=== PATIENT | female | born 1950 | race African-American/Black ===

== ENCOUNTER 2023-09-30 12:24 | Inpatient (IN) | payer MEDICARE, SELFPAY ==
[2023-09-30] VITALS (29 sets, daily range): BP systolic 90–131; BP diastolic 70–86; PULSE 89–136; RESP 12–27; TEMP 36.3–38.4; O2SAT 87–99
--- NOTE | 2023-09-30 12:45 | RT.EKG_ITS ---
APPROVED REPORT Exam: Resting ECG Reason for Exam: Tachycardia Patient Location: E HR:115 bpm ECG Measurements Heart Rate 115 AXIS [place] 125 P 54 QRSd 65 QRS 37 QT 263 T -88 QTc 365 Conclusion Sinus tachycardia...rate> 99 Low voltage, extremity leads...all extremity leads <0.5mV Anteroseptal infarct, age indeterminate...Q >35mS, T neg, V1-V2 Narrow complex normal sinus rhythm at a rate of 115. Normal axis. Intervals within normal limits wi th the exception of mildly short QTc. Minor ST segment depressions V4 and V5. No prior for comparis on. No acute injury pattern.Low voltage.
--- NOTE | 2023-09-30 12:53 | ED.GENADUL_ITS ---
HPI General Date/Time Provider Initiated Documentation: 09/30/23 12:53 . HPI Narrative: MDM This is a cachectic appearing febrile and tachycardic 73-year-old woman with failure to thrive fall and confusion concerning for multiple etiologies. Given fever and tachycardia I am concerned for sepsis so we will treat with 500 cc of crystalloid check a lactate ordered 2 sets of blood cultures and treat empirically with ceftriaxone and vancomycin. Given confusion and head strike will complete CT head. Given trauma I also want to complete CT thoracic and lumbar spine as patient has had difficulty ambulating as result will also obtain CT chest abdomen pelvis. No pain out of proportion to suggest necrotizing soft tissue infection. Patient does have mild lower extremity edema but she appears to have a preserved EF on limited bedside ultrasound which is reassuring against heart failure with reduced ejection fraction. She could certainly have heart failure with preserved ejection fraction. She had a small pericardial effusion but is not hypotensive to suggest tamponade. She also has left pleural effusion. Is certainly possible that her lower extremity edema could be from hypoalbuminemia given her failure to thrive and unintentional weight loss. Is certainly also possible that this could be secondary to malignancy. Given falls I do not feel patient is safe for discharge anticipate patient will require hospitalization. Given my abnormal echocardiogram I ordered a formal echocardi ogram. Patient is not an alcoholic to suggest increased risk for withdrawal. I considered PE however in the absence of hypotension hypoxia and chest pain I felt that this was less likely that I did not obtain D-dimer. 2 PM Reassuring negative troponin. Mildly elevated proBNP. Comprehensive metabolic panel showing normal renal function. Mildly elevated alkaline phosphatase and AST. Mild anion gap. No acute electrolyte abnormalities. CK within normal limits. Normal reassuring TSH. CBC shows anemia and leukopenia. No thrombocytopenia. Lactic acidosis with a serum lactate of 5.2 mmol/L. 2:56 PM Patient was found to have mildly elevated folate level. 3:15 PM Urinalysis not consistent with UTI. 3:54 PM I spoke with Dr. Rodríguez from the hospitalist team who agreed graciously to accept the patient for hospitalization. Certainly patient's fever could be secondary to a pneumonia give her pleural effusions. 5 PM Patient was found on CT head to have no acute intracranial process. She did have left paranasal sinusitis. I updated the patient, her daughter, and her grandson concerning plan for hospitalization. The etiology of her lactic acidosis is unclear. She does appear slightly hypovolemic which certainly could tissue hypoperfusion and type a lactic acidosis. Given her fever sepsis is certainly another possible cause. She has no history of malignancy though given her unintentional weight loss type B lactic acidosis secondary to decreased utilization and certainly in the differential. Patient's grandson will be able to pick her up once she is ready for discharge. His name is Sherman Estrada and he can be reached at: [phone]. I ordered a repeat lactate. Patient was taken upstairs prior to the results of her scan returning. Chronic conditions affecting the care of the patient: N/A History obtained from an outside historian: Patient's daughter and grandson External record review: No [facility] EMR records [Diagnostic interpretations performed by me: Per my independent interpretation chest x-ray shows: Per my independent interpretation EKG shows: Narrow complex normal sinus rhythm at a rate of 115. Normal axis. Intervals within normal limits with the exception of mildly short QTc. Minor ST segment depressions V4 and V5. No prior for comparison. No acute injury pattern.Low voltage. Medications: Fluids antibiotics Social determinants of health affecting disposition: N/A Management discussed with: hospitalist Treatment/interventions considered: N/A Response to therapies provided: improved HR in the ED. HPI This is a 73-year-old female arrived to the emergency department via private vehicle with family members in the setting of weakness and unintentional weight loss. 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 Over the past several months she has had increasing stress. She has unintentionally lost approximately 45 pounds of weight and currently weighs 90 pounds. She is also had a fall several weeks ago and hit her head. She has had some bruising to her back. She has had increased weakness fatigue and she reports feeling unsteady. She has had no nausea no vomiting no shortness of breath. She denies routine tobacco, ethanol, and illicits. Exam General: Cachectic chronically ill-appearing in no acute distress speaking in complete sentences. Head: Normocephalic, atraumatic. Eye:[Pupils equal, round reactive to light.] Extraocular eye movements intact. No conjunctival injection. No scleral icterus. Ear, nose, mouth, throat: Grossly normal inspection. Normal voice, handling secretions normally. Neck: Trachea midline. No midline cervical spinal tenderness. Cardiovascular: Well-perfused distal extremities. Rapid regular rate Respiratory: Nonlabored respiration. Decreased breath sounds left base Gastrointestinal: Nondistended abdomen. Scaphoid abdomen. Nontender. Back: left flank bruise. No step off nor deformities. No midline thoracic nor lumbar spinal tenderness. Musculoskeletal: Mild bilateral 1+ lower extremity pitting edema. Moving all 4 extremities spontaneously. Skin: Normal for age and race, grossly normal temperature and turgor. No acute rash. Neurologic: Alert and appropriate, no apparent acute deficits. Oriented to person and place but not time. GCS 14: E4, V4, M6. Related Data Home Medications Medication Instructions Recorded Confirmed acetaminophen 325 mg tablet 325 mg PO Q6H PRN 09/30/23 09/30/23 (Tylenol) calcium carbonate 200 mg calcium 200 mg PO DAILY 09/30/23 09/30/23 (500 mg) chewable tablet (Josué-Gest Antacid) ibuprofen 400 mg tablet (IBU) 400 mg PO Q6H 09/30/23 09/30/23 vit A 900 mcg-vit C 90 mg-D3 20 cap PO 09/30/23 mcg-zinc 5.5 mg-herbal no.331 capsule ([employer]) Allergies Allergy/AdvReac Type Severity Reaction Status Date / Time No Known Allergies Allergy Unverified 09/30/23 12:34 General Stated Complaint: Fall/Non TraumaCriteria GABO: 3 Course Vital Signs Vital signs: Vital Signs Temperature 37.5 C 09/30/23 12:39 Pulse 125 H 09/30/23 12:39 Respiratory Rate 16 09/30/23 12:39 Blood Pressure 119/75 09/30/23 12:39 Temperature 37.5 C 09/30/23 12:39 Temperature Source Temporal Artery Scan 09/30/23 12:39 Pulse 125 H 09/30/23 12:39 Respiratory Rate 16 09/30/23 12:39 Blood Pressure 119/75 09/30/23 12:39 Blood Pressure Position Sitting 09/30/23 12:39 Oxygen Delivery Method Room Air 09/30/23 12:39 Oxygen Flow Rate 0 09/30/23 12:39 Pain Level 5 09/30/23 12:39 Medical Decision Making Quality:SDOH Health Related Social Needs: No Data to Display PFSH All Active Problems (Updated 09/30/23 @ 18:39 by Kishor Rodríguez MD) Multiple rib fractures (Acute) Protein calorie malnutrition (Acute) CAP (community acquired pneumonia) (Acute) Septic shock (Acute) Pleural effusion, bilateral (Acute) Adult failure to thrive (Acute) Unintentional weight loss (Acute) Hx of falling (Acute) Acute lactic acidosis (Acute) Social History Smoking/Tobacco Use Status: Never Smoking risk assessment performed?: Yes Housing: house Discharge Plan Disposition Patient Disposition: Admit to [facility] Discharge Details Clinical Impression: Acute lactic acidosis, Hx of falling, Unintentional weight loss, Adult failure to thrive, Pleural effusion, bilateral Admit Date/Time: 09/30/23 16:02 Admit Provider: Kishor Rodríguez Attending Provider: Kishor Rodríguez Primary Care Provider: Unknown,Unknown ED Provider: Dev Del Cid Discharge Data Discharge Date/Time-TO BE ENTERED AT DEPARTURE: 09/30/23 16:51 POCUS Exam (ED) Limited Cardiac Exam DATE OF EXAM: 09/30/23 TIME OF EXAM: 14:28 PROVIDER THAT PERFORMED THE STUDY: Dev Del Cid REASON FOR EXAM: Other indication: Tachycardia VISUALIZED STRUCTURES: Four Chambers and Left ventricle VIEW OBTAINED: Apical 4-Chamber and Parasternal long-axis PERTINENT FINDINGS/IMPRESSION: Pericardial effusion and Other (No B-lines bilaterally); No LV dysfunction INCIDENTAL FINDINGS: Aortic outflow track less than 4 cm, good squeeze, small pericardial effusion. Patient could not tolerate apical four-chamber view Did not tolerate exam
--- NOTE | 2023-09-30 13:15 | DI.CT_ITS ---
Exam(s) CT HEAD WO EXAM: CT HEAD WO CLINICAL HISTORY: Confusion. TECHNIQUE: Imaging Protocol: Axial computed tomography images with coronal and sagittal reformatted images were created and reviewed COMPARISON: None. FINDINGS: Ventricles and Extra axial spaces: Normal in size and morphology for the patient's age. Hemorrhage: None. Cerebral parenchyma: There are areas of decreased attenuation in the white matter consistent with sma ll vessel ischemic disease. No mass effect is identified. Midline shift: None. Brainstem/Cerebellum: Normal. Calvarium: Normal. Visualized Paranasal sinuses/Mastoids: There is a fluid level in the left maxillary sinus. There is fluid seen in the left ethmoid air cells and the left frontal sinus. There is mild mucosal thickenin g in the sphenoid sinuses. The remaining visualized paranasal sinuses are clear as are the mastoid a ir cells. Soft Tissues: Unremarkable. IMPRESSION: 1. No acute intracranial process. 2. Acute left paranasal sinusitis. RADIATION DOSE DELIVERED: 669.47mGy.cm Total DLP DATA REPOSITORY: All CT scans at this facility are submitted to the National Radiology Data Registry (NRDR) Dose Index Registry (DIR) with the [employer] (ACR). RADIATION OPTIMIZATION: All CT scans at this facility use at least one of these dose optimization te chniques: automated exposure control; mA and/or kV adjustment per patient size (includes targeted exa ms where dose is matched to clinical indication); or iterative reconstruction.
--- NOTE | 2023-09-30 13:15 | DI.CT_ITS ---
Exam(s) CT CHEST/ABD/PEL WO EXAM: CT CHEST/ABD/PEL WO CLINICAL HISTORY: History of fall weight loss. TECHNIQUE: Imaging Protocol: Axial computed tomography images with coronal and sagittal reformatted images were created and reviewed CONTRAST MATERIAL: Intravenous: none Oral: None COMPARISON: No exams were available for comparison FINDINGS: CHEST: LUNGS: There are moderate size bilateral pleural effusions. Left slightly larger than right and asso ciated with some volume loss in the basal segments of the left lower lobe. Mild infiltrate in left l colt base noted. Also mild infiltrate in the right lung base. No obvious pulmonary masses. No findi ngs in the trachea and mainstem bronchi.. MEDIASTINUM: No obvious hilar nor mediastinal adenopathy. Partially visualized thyroid unremarkable. CARDIAC: Heart size is normal. There is no pericardial effusion.Diameter of the ascending thoracic a zaire is enlarged, measuring 4 cm. Diameter of the mid aortic arch is upper normal. Diameter of the descending thoracic aorta is upper normal. OSSEOUS: Are acute fractures of the left 10th and 11th ribs posteriorly, with mild displacement. Mor e subtle left 7th rib fracture.,laterally. There is a subtle nondisplaced fracture of the right 7th rib. There is a subtle irregularity of the anterior cortex of the body of the sternum which may be a nondisplaced fracture. Concavity of the superior endplate of L2 noted which has appearance of nonacute fracture. ABDOMEN: There is no ascites. LIVER: No obvious liver laceration. No focal hepatic lesions. GALLBLADDER/BILIARY: No obvious gallbladder pathology. CBD is not dilated. PANCREAS: Pancreas difficult to study on this non few study given it being isodense to surrounding st ructures in this cachectic patient. SPLEEN: Spleen size upper normal. No obvious splenic lacerations, realized limitations of this study . ADRENALS: There are no significant adrenal masses. KIDNEYS: Right kidney unremarkable. Hyperdense nodule seen in the superior pole region of the left k idney probably a hemorrhagic cyst at the superior pole level... No calculi nor hydronephrosis. ABDOMINAL AORTA: Abdominal aorta is not enlarged. LYMPH NODES: There is no retroperitoneal nor para-aortic adenopathy. ABDOMINAL WALL/GI: No evidence of significant anterior abdominal wall nor inguinal hernia. No evidence of bowel obstruction. PELVIS: LYMPH NODES: There is no intrapelvic nor inguinal adenopathy. GI: No evidence of appendicitis.No evidence of sigmoid diverticulitis. URINARY BLADDER: No calculi nor obvious masses evident REPRODUCTIVE: Calcified fundal fibroid in the uterus. OSSEOUS: No significant osseous lesions in the pelvis and no pelvic fractures identified. No hip fra ctures. There is concavity at superior endplate of L2 consistent with nonacute compression fracture. There is disc space narrowing at L4-5 and L5-S1 levels consistent with chronic disc disease.. IMPRESSION: 1. Moderate size bilateral pleural effusions, left larger than right. Associated with some volume lo ss in left lower lobe segments. No pneumothorax. 2. There is a moderately displaced acute appearing fracture of the posterior aspect of the left 10th rib. Lesser displaced fracture of the adjacent left 9th rib. There are also more subtle fractures l eft 6th and 7th ribs which appear subacute-partially healed. Also right 7th rib. Also subtle buckli ng of the anterior cortex of the body of the sternum which may be a nondisplaced fracture. L2 superi or endplate concavity consistent with nonacute compression fracture. No pelvic nor hip fractures marisol dent. Called by myself to hospitalist. RADIATION DOSE DELIVERED: 738.35mGy.cm Total DLP DATA REPOSITORY: All CT scans at this facility are submitted to the National Radiology Data Registry (NRDR) Dose Index Registry (DIR) with the [employer] (ACR). RADIATION OPTIMIZATION: All CT scans at this facility use at least one of these dose optimization te chniques: automated exposure control; mA and/or kV adjustment per patient size (includes targeted exa ms where dose is matched to clinical indication); or iterative reconstruction.
--- NOTE | 2023-09-30 13:19 | DI.CT_ITS ---
Exam(s) CT THORACIC LUMBAR SPINE REC EXAM: CT THORACIC LUMBAR SPINE REC CLINICAL HISTORY: History of fall back pain lumbar TECHNIQUE: COMPARISON: CT CT CHEST/ABD/PEL WO from 09/30/2023 FINDINGS: Thoracic spinal column: Scoliosis but no evidence of compression fracture or listhesis. Incidentally noted is an acute appearing displaced fracture of T10. There are bilateral pleural effusions, left larger than right. Lumbosacral spinal column: No acute fractures evident. Scoliosis but indentation of the superior end plate of L2 has appearance of a nonacute 25 percent compression fracture. No retropulsion. Advanced disc space narrowing L5-S1. Moderate disc space narrowing noted at L4-5. IMPRESSION: As above but no acute 3 vertebral body fractures. There is an acute appearing displaced fracture of the posterior aspect of the left 10th rib. Bilateral pleural effusions, left larger than right. See separate CT scan reports.
[2023-09-30 13:32] LABS: Abs Immature Grans 0.19 10^3/uL (0.0-0.06); Absolute Basophil Count 0.03 10^3/uL (0.0-0.2); Absolute Lymphocyte Count 0.98 10^3/uL (1.2-3.4); Absolute Monocyte Count 0.12 10^3/uL (0.1-0.8); Absolute Neutrophil Count 1.49 10^3/uL (1.2-6.7); Basophils % 1.1; HCT 29.9 % (36.0-46.0); HGB 9.6 g/dL (11.2-15.7); Immature Grans % 6.8; Lymphocytes % 34.9; MCH 28.8 pg (27.0-33.0); MCHC 32.1 % (32.0-36.0); MCV 90 fL (80-95); MPV 9.8 fL (8.0-11.0); Monocytes % 4.3; Neutrophils % 52.9; Nucleated RBC 3.2 % (0.0-0.3); Platelet Count 157 10^3/uL (130-400); RBC 3.33 10^6/uL (3.93-5.22); RDW 14.7 % (11.7-14.6); RDW-SD 44.5 fL; WBC 2.81 10^3/uL (4.4-10.8)
[2023-09-30] MEDS: Normal Saline 500 ML IV ×2 (13:41→16:00)
[2023-09-30 13:46] LABS: Diff Comment Diff Reviewed; RBC Morphology Normal
[2023-09-30 13:56] LABS: ALT 16 U/L (14-59); AST 124 U/L (15-37); Albumin 2.5 g/dL (3.4-5.0); Alkaline Phosphatase 147 U/L (46-116); Anion Gap 12.8 mmol/L (3-11); BUN 11 mg/dL (7-18); Bilirubin, Total 0.6 mg/dL (0.2-1.0); CO2 24.2 mmol/L (21.0-32.0); CREATININE 0.7 mg/dL (0.55-1.02); Chloride 99 mmol/L (98-107); Creatine Kinase 44 U/L (26-192); Estimated GFR 91.26 (mL/min/1.73m2); Glucose 104 mg/dL (74-106); NT-proBNP 495 pg/mL (<300); Sodium 136 mmol/L (136-145); TSH (W/Ref FT4) 1.62 uIU/mL (0.36-3.74); Total Protein 6.9 g/dL (6.4-8.2); Troponin I < 50 ng/L (< or =60)
[2023-09-30 13:58] LABS: Lactate 5.2 mmol/L (0.6-1.4)
[2023-09-30] MEDS: cefTRIAXone 2 GM/50 ML BAG IVPB (14:10)
[2023-09-30] MEDS: VANCOMYCIN/WATER (PEG) 1 GM/200 ML BAG IVPB (14:14)
[2023-09-30 14:52] LABS: Folate > 20.0 ng/mL (8.6-20.0)
[2023-09-30 15:12] LABS: Bilirubin Negative (Negative); Blood Negative (Negative); Clarity Clear (Clear); Glucose Negative (Negative); Ketones Negative (Negative); Leukocyte Esterase Negative (Negative); Nitrite Negative (Negative); Urobilinogen 0.2 mg/dL (Up to 0.2)
[2023-09-30] MEDS: Acetaminophen 500 MG TAB 1000 MG PO (15:57)
--- NOTE | 2023-09-30 16:02 | W.PM.HP.N ---
Date of service: 09/30/23 Time of Service: 17:23 Assessment and Plan Assessment and plan (1) Septic shock: Status: Acute Assessment and plan: - Patient is criteria for septic shock as she was tachycardic heart rate greater than 90 upon arrival, had temperature of 101 ?F, and initial lactic acid of 5.3, source of infection presumed to be left lower lobe pneumonia -Patient was given fluid resuscitation in the emergency department did have improvement of her lactic acid down to 3.6 -Additionally, her tachycardia is also improved -Patient started on cefepime, will order MRSA swab and add vancomycin if positive -Community-acquired pneumonia was likely secondary to frequent falls resulting in multiple rib fractures, atelectasis -Follow-up blood culture results -Follow-up a.m. CBC and lactic (2) CAP (community acquired pneumonia): Status: Acute Assessment and plan: - Source of infection as noted above (3) Pleural effusion, bilateral: Status: Acute Assessment and plan: - Likely secondary to a combination of multiple fall/rib fractures as well as protein calorie malnutrition and hypoalbuminemia (4) Multiple rib fractures: Status: Acute Assessment and plan: -displaced acute appearing fracture of the posterior aspect of the 10th rib lesser displaced fracture of the adjacent left ninth rib subtle fractures of the left sixth and seventh ribs which appear to be subacute/partially healed as well as the seventh right rib and subtle buckling of the anterior cortex of the body of the sternum which may be a nondisplaced fracture -Patient states she is having minimal pain, will continue with as needed Tylenol (5) Adult failure to thrive: Status: Acute Assessment and plan: - Patient reportedly has been slowly taking care of her demented , they have been trying to get into a [place] [facility] [place] for long-term care -At this time, it is presumed that patient has experienced significant stress, resulting in poor p.o. intake, weakness, and ultimately her failure to thrive and protein calorie malnutrition -Have ordered protein supplements and boost/Ensure for patient -Will also order nutrition consultation for further evaluation and recommendations (6) Unintentional weight loss: Status: Acute Assessment and plan: - As noted above (7) Protein calorie malnutrition: Status: Acute Assessment and plan: - As noted above History of Present Illness History of Present Illness Chief Complaint: Weakness, failure to thrive, confusion Narrative: Reportedly previously healthy 73-year-old female presents with her family for complaints of weakness, unintentional weight loss, weakness and frequent falls. According to patient's family, patient has been reportedly caring for her who has been in and out of nursing homes over the last few years. However, over the last few months she has had significant increase in stress as well as an associated unintentional 45 pound weight loss. However, over the last few weeks she is also fallen, hit her head without losing consciousness, she has also had increased fatigue, stating that she also feels unsteady on her feet. She denies any fevers, chills, nausea vomiting diarrhea constipation. In the emergency department the patient was noted as having normal vital signs with exception of some mild tachycardia as well as a fever 101. Physical exam was normal with the exception of the fact the patient was noted as being severely cachectic appearing. CBC showed leukopenia with a white blood cell count of 2.8, anemia with a hemoglobin of 9.6 which was normocytic, BMP was unremarkable with the exception of an anion gap of 12.8 which was ultimately determined to be secondary to lactic acid which was initially 5.2. Additionally, patient's proBNP was 495 and her albumin was 2.5. UA was negative, given patient's recorded frequent falls chest CT abdomen pelvis and head were ordered as well as thoracic and lumbar spine among those studies, chest CT showed small to moderate bilateral pleural effusions with left greater than right and atelectatic changes in the left base cannot be excluded for a left lower lobe infiltrate. Additionally, patient was also noted to have a displaced acute appearing fracture of the posterior aspect of the 10th rib lesser displaced fracture of the adjacent left ninth rib subtle fractures of the left sixth and seventh ribs which appear to be subacute/partially healed as well as the seventh right rib and subtle buckling of the anterior cortex of the body of the sternum which may be a nondisplaced fracture and an L2 superior endplate concavity that is consistent with a nonacute compression fracture. Patient was given IV fluids which did lead to an improvement of her lactic down to 3.6. At which time emergency room physician paged hospitalist for admission for patient which appears to have septic shock secondary to community-acquired pneumonia likely evolved from significant weakness, falls, and atelectasis. Review of Systems All systems reviewed & are unremarkable except as noted in HPI and below PFSH All Active Problems (Updated 09/30/23 @ 18:39 by Kishor Rodríguez MD) Multiple rib fractures (Acute) Protein calorie malnutrition (Acute) CAP (community acquired pneumonia) (Acute) Septic shock (Acute) Pleural effusion, bilateral (Acute) Adult failure to thrive (Acute) Unintentional weight loss (Acute) Hx of falling (Acute) Acute lactic acidosis (Acute) Social History Smoking risk assessment performed?: No Meds Allergies and Home Medications Allergies Allergy/AdvReac Type Severity Reaction Status Date / Time No Known Allergies Allergy Unverified 09/30/23 12:34 Home Medications Medication Instructions Recorded Confirmed Type acetaminophen 325 mg tablet 325 mg PO Q6H PRN 09/30/23 09/30/23 History (Tylenol) calcium carbonate 200 mg calcium 200 mg PO DAILY 09/30/23 09/30/23 History (500 mg) chewable tablet (Josué-Gest Antacid) ibuprofen 400 mg tablet (IBU) 400 mg PO Q6H 09/30/23 09/30/23 History vit A 900 mcg-vit C 90 mg-D3 20 cap PO 09/30/23 History mcg-zinc 5.5 mg-herbal no.331 capsule ([employer]) Exam Narrative Exam Narrative: Severely cachectic appearing older female laying in bed in no acute distress, ANO x 4, heart regular rate rhythm, lungs diminished in bilateral bases, abdomen soft, nontender, nondistended, trace pedal edema in bilateral feet Results Labs 09/30/23 13:10 09/30/23 13:10 Labs: Laboratory Results - last 24 hr 09/30/23 09/30/23 09/30/23 13:10 13:35 14:55 WBC 2.81 L RBC 3.33 L Hgb 9.6 L Hct 29.9 L MCV 90 MCH 28.8 MCHC 32.1 RDW 14.7 H Plt Count 157 MPV 9.8 Immature Gran % 6.8 Neutrophils % 52.9 Lymphocytes % 34.9 Monocytes % 4.3 Eosinophils % 0.0 Basophils % 1.1 Nucleated RBC % 3.2 H Absolute Neutrophils 1.49 Absolute Lymphocytes 0.98 L Absolute Monocytes 0.12 Absolute Eosinophils 0.00 Absolute Basophils 0.03 RBC Morphology Normal VBG Lactate 5.2 H* Sodium 136 Potassium 4.0 Chloride 99 Carbon Dioxide 24.2 Anion Gap 12.8 H BUN 11 Creatinine 0.7 Est GFR (CKD-EPI 2020) 91.26 Glucose 104 Calcium 9.0 Total Bilirubin 0.6 AST 124 H ALT 16 Alkaline Phosphatase 147 H Creatine Kinase 44 Troponin I < 50 NT-Pro-B Natriuret Pep 495 H Total Protein 6.9 Albumin 2.5 L Folate > 20.0 H TSH 1.62 Urine Color Yellow Urine Clarity Clear Urine pH 6.0 Ur Specific [place] 1.020 Urine Protein Trace Urine Ketones Negative Urine Blood Negative Urine Nitrite Negative Urine Bilirubin Negative Urine Urobilinogen 0.2 Ur Leukocyte Esterase Negative Urine Glucose Negative Last Vital Signs Temp 101 F H 09/30/23 13:00 Pulse 114 H 09/30/23 15:15 Resp 12 09/30/23 15:41 BP 127/86 09/30/23 15:15 Pulse Ox 93 09/30/23 15:41 Time Spent Time spent with Patient: >75 minutes Time was spent: preparing to see the patient(eg.review tests), obtaining and/or reviewing separately otained hiistory, ordering medications,tests, procedures, referring, communicating with other health animal care specialist, indepentently interpreting results, counseling the patient and care coordination
--- NOTE | 2023-09-30 16:25 | DI.US_ITS ---
APPROVED REPORT EXAM: Comprehensive 2D, Doppler, and color-flow Echocardiogram Patient Location: ER Room/Bed: 4 Transactional Paralegal: Britt Shaver RDCS (AE) Indications: Pericardial Effusion Other Information Study Quality: Adequate. Technically limited study due to body habitus, inability to position patient exam done supine bedside ER. Apical views TD.. Conclusion Normal left ventricular wall thickness and chamber size. Ejection fraction is 60-65. Wall motion is normal Normal right ventricular size and function Both atria are normal in size There are no significant structural valvular abnormalities Trace aortic regurgitation Trace to mild mitral regurgitation Dilated ascending aorta measuring 4 cm Moderate tricuspid regurgitation. Estimated right ventricular systolic pressure is 41 mmHg Trivial pericardial effusion Wall motion Left Ventricle The left ventricle is normal size. The left ventricular systolic function is normal. The left ventric ular ejection fraction is within the normal range. There is normal left ventricular wall thickness. T here is normal LV segmental wall motion. There is no ventricular septal defect visualized. LVEF is 60 -65%. Right Ventricle Right ventricle is grossly normal in size. Right ventricular systolic function is grossly normal. Atria The left atrium size is normal. The right atrium size is normal. The interatrial septum is intact wit h no evidence for an atrial septal defect. Aortic Valve The aortic valve is normal in structure. Aortic valve is trileaflet. There is no aortic valvular sten osis. Trace aortic regurgitation. Mitral Valve The mitral valve is normal in structure. No evidence of mitral valve stenosis. Trace to mild mitral r egurgitation. Tricuspid Valve The tricuspid valve is normal in structure. There is no tricuspid valve stenosis. Moderate tricuspid regurgitation. The RVSP is 41.2mmHg. Pulmonic Valve The pulmonary valve is normal in structure. There is no pulmonic valvular stenosis. Trace pulmonic re gurgitation. Great Vessels The aortic root is normal in size. The ascending aorta is moderately dilated.4.0 cm IVC is normal in size and collapses >50% with inspiration. Pericardium Trivial circumferential pericardial effusion. 2D Dimensions IVSD d PLAX 0.74 cm F: 0.6-1.0 Ao Root d 3.02 cm F: 2.7 - 3.3 LVPW d PLAX 0.75 cm F: 0.6 - 1.0 Ao Asc Diam d 4.00 cm F: 2.3 - 3.1 LVID d PLAX 4.47 cm F: 3.8 - 5.2 LVDs 2.89 cm F: 2.2 - 3.5 LV EF Teichholz 64.8 % FS 35.30 % LV EDV (Teich) 91.1 mL LV ESV (Teich) 32.0 mL M-Mode TAPSE 2.89 cm (M/F) >1.7 Auto EF LV EDV A4C 80.7 mL LV EDV A2C 86.9 mL LV EDV BP 83.0 mL LV ESV A4C 33.2 mL LV ESV A2C 41.9 mL LV ESV BP 36.3 mL LVEF(%) A4C 58.8 % LVEF(%) A2C 51.7 % LVEF(%) BP 56.3 % LV SV A4C 47.4 ml LV SV A2C 44.9 ml LV SV BP 46.7 ml LV CO A4C 5.0 L/min LV CO A2C 4.7 L/min LV CO BP 4.9 L/min HR A4C 105.26 BPM HR A2C 104.97 BPM LV EDV Index (BP) LV Strain Long Pk Overal Avg (s) 13.89 LA Volume LA Length A4C 5.8 cm LA Length A2C 5.7 cm LA Area A4C s 23.61 cm2 LA Area A2C s 16.09 cm2 LA Vol A4C A-L 82.11 mL LA Vol A2C A-L 38.56 mL LA Vol Biplane A-L 56.6 mL LA Vol/BSA A4C A-L LA Vol/BSA A2C A-L LA Vol/BSA BP A-L 43.9 mL/m2 LA Vol A4C MOD 74.5 mL LA Vol A2C MOD 35.6 mL LA Vol BP MOD 50.9 mL RA Volume RA Area A4C 18.7 cm2 RA ESV A4C (A-L) 57.2mL RA Vol/BSA A4C A-L RA Length A4C 5.2 cm RA ESV A4C (MOD) 53.5mL LV Diastology MV E Vmax 0.71 (0.4-1.3 m/s) MV A Vmax 0.80 (0.4-1.3 m/s) E/A Ratio 0.9 Aortic Valve AoV Vmax 1.75 m/s LVOT Vmax 1.44 m/s AoV Peak Grad 12.2 mmHg LVOT Peak Grad 8.3 mmHg AoV Area (Vmax) 2.33 cm2 LVOT VTI 0.248 m AoV VTI 0.332 m LVOT Mean Grad 5.6 mmHg AoV Mean Mark. 1.28 m/s LVOT SV 69.85 mL AoV Mean Grad 7.3 mmHg LVOT Diam s 1.85 cm AoV Area (VTI) 2.10 cm2 Velocity Ratio 0.82 Mitral Valve MV DT 281 (160-240 msec) MV Vmax TIPS 0.81 m/s MV Mean Grad 1.2 (<2mmHg) MV VTI 0.153 m Pulmonary Valve PV Vmax 0.97 (0.5-1.5 m/s) RVOT Vmax 0.95 m/s PV Peak Grad 3.7 mmHg RVOT Peak Gr. 3.6 mmHg PV Mean Mark 0.64 m/s RVOT VTI 0.128 m PV Mean Grad 1.9 mmHg RVOT Mean Gr. 1.5 mmHg Tricuspid Valve RA Pressure 3.00 mmHg TR Vmax 3.09 m/s TR Peak Grad 38.2 mmHg RVSP (TR) 41.2 mmHg
[2023-09-30 17:03] LABS: Lactate 3.6 mmol/L (0.6-1.4)
--- NOTE | 2023-09-30 17:13 | DI.VRAD_ITS ---
PROCEDURE INFORMATION: Exam: CT Chest Without Contrast; Diagnostic Exam date and time: 09/30/2023 3:32 PM Age: 73 years old Clinical indication: Injury or trauma; Generalized; Blunt trauma (contusions or hematomas); Injury date: 09/30/23; Patient HX: History of fall, weight loss; Additional info: Patient could not raise arms above head TECHNIQUE: Imaging protocol: Diagnostic computed tomography of the chest without contrast. 3D rendering (Not supervised by radiologist): MIP and/or 3D reconstructed images were created by the technologist. Radiation optimization: All CT scans at this facility use at least one of these dose optimization techniques: automated exposure control; mA and/or kV adjustment per patient size (includes targeted exams where dose is matched to clinical indication); or iterative reconstruction. COMPARISON: CT THORACIC LUMBAR SPINE REC 09/30/2023 3:32 PM FINDINGS: Thyroid: The thyroid gland appears within normal limits. Lungs: The tracheobronchial tree is patent bilaterally. There is fibrosis and scarring at the right lung base. There are atelectatic changes at the left lung base. A small left lower lobe infiltrate is not totally excluded. The lung windows are somewhat degraded by respiratory motion artifact. Pleural spaces: There are bilateral small to moderate pleural effusions. The left pleural effusion is greater than the right. Heart: The heart and pericardium appear within normal limits. Lymph nodes: No enlarged lymph nodes. Vasculature: There is aneurysmal dilatation of the ascending aorta measuring up to 4.1 cm. Bones/joints: There is a slight dextroscoliosis of the thoracic spine. Soft tissues: Unremarkable. Other findings: The study is limited due to lack of IV contrast administration. There is suspected anemia. IMPRESSION: 1. The study is limited secondary to lack of IV contrast. The study is somewhat limited due to respiratory motion artifact. 2. [id number] bilateral pleural effusions. The left pleural effusion is greater than the right. Atelectatic changes at the left lung base. A small underlying left lower lobe infiltrate is not excluded. Clinical correlation is recommended. 3. Aneurysmal dilatation of the ascending aorta measuring up to 4.1 cm. Suspect anemia. 4. Osseous findings as above. PROCEDURE INFORMATION: Exam: CT Abdomen And Pelvis Without Contrast Exam date and time: 09/30/2023 3:32 PM Age: 73 years old Clinical indication: Injury or trauma; Generalized; Blunt trauma (contusions or hematomas); Injury date: 09/30/23; HX: History of fall, weight loss; Additional info: Patient could not raise arms above head TECHNIQUE: Imaging protocol: Computed tomography of the abdomen and pelvis without contrast. Radiation optimization: All CT scans at this facility use at least one of these dose optimization techniques: automated exposure control; mA and/or kV adjustment per patient size (includes targeted exams where dose is matched to clinical indication); or iterative reconstruction. Other technique: 3D rendering (Not supervised x radiologist): MIP and/or 3D reconstructed images were created x the technologist. COMPARISON: CT THORACIC LUMBAR SPINE REC 09/30/2023 3:32 PM FINDINGS: Liver: The liver is within normal limits. Gallbladder and bile ducts: The gallbladder is unremarkable. Pancreas: The pancreas is within normal limits. Spleen: The spleen is within normal limits. Adrenal glands: The adrenal glands are unremarkable. Kidneys and ureters: There is the kidneys are within normal limits. Stomach and bowel: Unremarkable. No obstruction. No mucosal thickening. Appendix: No evidence of appendicitis. Intraperitoneal space: Unremarkable. No free air. No significant fluid collection. Vasculature: Unremarkable. No abdominal aortic aneurysm. Lymph nodes: No enlarged lymph nodes. Urinary bladder: The urinary bladder is within normal limits. Reproductive: The uterus is small. There is a calcified subserosal leiomyoma. The ovaries are not visualized consistent with the patient's age. Bones/joints: There are degenerative changes of the lumbar spine. There is degenerative disc disease at L4-L5 and L5-S1. There is a Schmorl's node within the superior endplate of the L2 vertebral body. There is a levoscoliosis of the lumbar spine. Soft tissues: Unremarkable. Other findings: The study is limited secondary to lack of IV contrast as well as oral contrast. IMPRESSION: 1. Limited study secondary to lack of IV and oral contrast. 2. Osseous findings as above. Dictated and Authenticated by: Jarred Rodriguez MD. Ordering:DAVID Méndez MD
--- NOTE | 2023-09-30 17:20 | DI.VRAD_ITS ---
PROCEDURE INFORMATION: Exam: CT Thoracic Spine Without Contrast Exam date and time: 09/30/2023 3:32 PM Age: 73 years old Clinical indication: Injury or trauma; Blunt trauma (contusions or hematomas); Additional info: Patient could not raise arms above head TECHNIQUE: Imaging protocol: Computed tomography of the thoracic spine without contrast. COMPARISON: CT CHEST/ABD/PEL WO 09/30/2023 3:32 PM FINDINGS: Bones/joints: There is a dextroscoliosis of the thoracic spine. The vertebral bodies maintain their height throughout. The pedicles are intact. The disc spaces are preserved. Soft tissues: Unremarkable. IMPRESSION: Dextroscoliosis of the thoracic spine. PROCEDURE INFORMATION: Exam: CT Lumbar Spine Without Contrast Exam date and time: 09/30/2023 3:32 PM Age: 73 years old Clinical indication: Injury or trauma; Blunt trauma (contusions or hematomas); Additional info: Patient could not raise arms above head TECHNIQUE: Imaging protocol: Computed tomography of the lumbar spine without contrast. COMPARISON: CT CHEST/ABD/PEL WO 09/30/2023 3:32 PM FINDINGS: Bones/joints: There is a levoscoliosis of the lumbar spine. There are degenerative changes and degenerative disc disease at L4-L5 and L5-S1. There is a Schmorl's node within the superior endplate of the L2 vertebral body. The pedicles are intact. Soft tissues: Unremarkable. IMPRESSION: Degenerative changes and degenerative disc disease as above. Levoscoliosis of the lumbar spine. Further evaluation as clinically warranted Dictated and Authenticated by: Jarred Rodriguez MD. Ordering:DAVID Méndez MD
[2023-09-30] MEDS: Acetaminophen 325 MG TAB PO (17:34)
[2023-09-30] MEDS: CEFEPIME 2 GM in Normal Saline 100 ML IVPB (18:11)
--- NOTE | 2023-09-30 19:29 | NUR.NOTE ---
Nursing Note: Patient lost her balance in the bathroom and bumped the wall with the left elbow, per patient, at approximately 18:35. No injury was visible. Patient denied pain or discomfort. Patient stated oh, no, no, that was just a small bump. Patient stated she is not injured and declined a visit and evaluation from Dr. Rodríguez when offered by this RN at approximately 18:50. Dr. Rodríguez was notified.
[2023-09-30] MEDS: Normal Saline Flush 10 ML SYR IVP (19:33)
[2023-09-30] MEDS: Protein Nutritional Supplement 16 GM 1 OUNCE PACKET PO (19:33)
[2023-09-30] MEDS: Aspirin 81 MG CHEW 162 MG PO (21:20)
[2023-09-30 21:50] LABS: MRSA PCR Negative (Negative)
[2023-10-01] VITALS (9 sets, daily range): BP systolic 90–116; BP diastolic 59–76; PULSE 94–113; RESP 16–18; TEMP 36.1–38.5; O2SAT 95–99
[2023-10-01] MEDS: Normal Saline Flush 10 ML SYR IVP ×3 (05:28→20:22)
[2023-10-01] MEDS: CEFEPIME 2 GM in Normal Saline 100 ML IVPB ×2 (05:29→18:19)
[2023-10-01 06:55] LABS: HCT 25.7 % (36.0-46.0); HGB 8.2 g/dL (11.2-15.7); MCH 28.4 pg (27.0-33.0); MCHC 31.9 % (32.0-36.0); MCV 89 fL (80-95); Platelet Count 130 10^3/uL (130-400); RBC 2.89 10^6/uL (3.93-5.22); RDW 14.6 % (11.7-14.6); RDW-SD 43.1 fL; WBC 2.03 10^3/uL (4.4-10.8)
[2023-10-01 07:08] LABS: Anion Gap 12.5 mmol/L (3-11); BUN 15 mg/dL (7-18); CO2 22.5 mmol/L (21.0-32.0); CREATININE 0.7 mg/dL (0.55-1.02); Calcium 8.5 mg/dL (8.5-10.1); Chloride 104 mmol/L (98-107); Estimated GFR 91.26 (mL/min/1.73m2); Glucose 84 mg/dL (74-106); Magnesium 1.3 mg/dL (1.8-2.4); Potassium 4.4 mmol/L (3.5-5.1); Sodium 139 mmol/L (136-145)
[2023-10-01] MEDS: Protein Nutritional Supplement 16 GM 1 OUNCE PACKET PO ×3 (08:30→20:22)
[2023-10-01] MEDS: Pantoprazole 40 MG VIAL IVP (08:30)
[2023-10-01 08:39] LABS: Lactate 4.6 mmol/L (0.6-1.4)
[2023-10-01] MEDS: Lactated Ringers 500 ML IV ×2 (10:18→12:55)
[2023-10-01 11:01] LABS: COVID-19 PCR Negative (Negative); Influenza A PCR Negative (Negative); Influenza B PCR Negative (Negative); RSV PCR Negative (Negative)
[2023-10-01 11:04] LABS: Source Nasopharynx
[2023-10-01] MEDS: Normal Saline 500 ML 25 ML IV (11:12)
[2023-10-01] MEDS: MAGNESIUM SULFATE 4 GM/100 ML BAG IVPB (11:13)
[2023-10-01] MEDS: Lactated Ringers 1,000 ML 75 ML IV (11:27)
[2023-10-01] MEDS: Acetaminophen 325 MG TAB PO ×2 (12:10→21:34)
--- NOTE | 2023-10-01 12:16 | W.NUTCONSULT ---
Date of service: 10/01/23 Time of Service: 11:50 Nutritional Consult ASSESSMENT: Consult received re: protein-calorie malnutrition status Pt is a 73yo female admitted after multiple rib fxs and found to have LLL PNA and pleural effusion. Pt off precautions at the time of visiting and this will make ordering her preferred food choices easier. She is accompanied by tall young man (unsure of relation) who had brought her a big take-out bowl of tofu fried rice. States she was vegetarian but now making room for some meats as she was told by the doctor that meat would be a good option for protein. She informs that ~61kg is a usual good weight for her (currently she is 46.5kg). She reports (and visitor confirms) that she lost this weight over the course of about the last 3-4 months while caring for her who has dementia. She has not been consuming any ONS at home but is open to receiving during admission - I brought a couple samples for her to try. She reports no food allergies or rastafarian food needs during admission. Estimated energy needs: 1700kcals (MSJx1.3AF with 300 additional kcals per day for wt gain), 75g protein (1.2g/kg of UBW) and 1700mL fluid (1mL per required kcal) She is ordered for liquid collagen protein which will supply 45g protein and 180kcals per day if consumed. NUTRITIONAL DIAGNOSIS: Moderate malnutrition in the context of her social/environmental situation and recent acute illness as evidenced by 13% loss of weight from usual body weight in less than a 6 month period. INTERVENTION: She agreed to try and drink ONS as follows: strawberry boost on breakfast tray, 10am nourishment of 8oz whey smoothie, 2pm nourishment of 8oz whey smoothie, and vanilla boost on dinner tray. (totaling 1043kcals/61g protein) and will try to continue and take liquid protein concerntrate TID. Educated on higher kcal food choices and be liberal with starches as she prefers starch choices. Alerted [facility] staff member to prioritize her room to stop and get selected/preferred menus and guide towards high kcal/protein choices. Recommend recheck on height as she is listed at 6ft and appears shorter than this, which will affect her BMI status. MONITORING AND EVALUATION: will monitor intake, wt, labs and ONS toleration for follow up Time Spent in Nutritional Counseling and Treatment: 15 minutes
[2023-10-01 12:22] LABS: HCT 24.6 % (36.0-46.0); HGB 7.9 g/dL (11.2-15.7)
[2023-10-01 12:23] LABS: Lactate 7.1 mmol/L (0.6-1.4)
--- NOTE | 2023-10-01 12:55 | PT.INNT ---
PT Notes Visit Reasons: Lactic Acidosis Patient unavailable, with Nurse Monge who was establishing IV line when PT arrived. Per Nurse Monge, patient with new onset fever. Will benefit from resting this morning and PT recheck this afternoon for PT eval.
--- NOTE | 2023-10-01 12:59 | PCNE_ITS ---
Date of service: 10/01/23 Time of Service: 16:39 History of Present Illness Narrative: Claudia See is a 73-year-old woman from [facility] who was admitted to [facility] yesterday with community-acquired pneumonia, subacute rib fractures, pleural effusion and probable secondary septic shock. Other problems include increased stress from caring for her with dementia resulting in unintentional 45 pound weight loss, increasing frailty with falls, rib fracture resulting from falls, and change in mental status. History from chart. Nothing available in VITL. Nursing also helpful. Family not available by person or phone this evening. Patient does not seem to be a reliable historian today. Patient has been caring for for dementia for years. 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 Her house in in [place] (about [address] from [facility]). She notes that she has been much more dizzy the last few months and has become concerned about her driving. Dizzyness has resulted in falls. SHe thinks she fell and broke the ribs a few months ago. She reports her usual weight was always 135 pounds (and that her height is about 5' 10). She lost the weight over 10 years, while caring for . ALso says she lost the weight over the last 6 months. Denies nausea, headache, dysphagia. Hospitalist reports that pt has no hx EtOH use. PT report reviewed ( Diffuse decreased strength, gait instability, able to walk with FWW with assist, but crosses feet and needs cuing). Care Team: Primary Care physician:[facility]ender[facility] Vance Henriquez ([facility]). No allopathic physician. Social HX: #1 (she was age 38). 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 Hobbies: Sewing, drawing and baking and cooking. Additional Services: Was getting some help from 's aide with housework. Goals of care questions: She is tangential and gets stuck Function: Ambulation: reports she has been ambulatin without assistance ADLs: iADLs: Was getting help from 's caregiver since breaking ribs. Hearing: Says hearing is poor (R ear plugged). No hearing aids. Vision: Cognition: See A/P and PE Falls: Falls started when she started getting dizzy and weak a few months ago. Driving: Driving, but feels no longer safe. Palliative Performance Scale % Ambulation Activity and Evidence of Disease Self Care Intake Level of Consciousness 100 Full Normal activity, no evidence of disease Full Normal Full 90 Full Normal activity, some evidence of disease Full Normal Full 80 Full Normal activity with effort, some evidence of disease Full Normal or reduced Full 70 Reduced Unable to do normal work, some evidence of disease Full Normal or reduced Full 60 Reduced Unable to do hobby or some housework, significant disease Occasional assist necessary Normal or reduced Full or confusion 50 Mainly sit/lie Unable to do any work, extensive disease Considerable assistance required Normal or reduced Full or confusion 40 Mainly in bed Unable to do any work, extensive disease Mainly assistance Normal or reduced Full, drowsy, or confusion 30 Totally bed bound Unable to do any work, extensive disease Total care Reduced Full, drowsy, or confusion 20 Totally bed bound Unable to do any work, extensive disease Total care Minimal sips Full, drowsy, or confusion 10 Totally bed bound Unable to do any work, extensive disease Total care Mouth care only Drowsy or coma 0 - - - - Patient Score: Varying report from patient, will query daughter. Spiritual history: COntinues to go to [facility]. Praying very helps tremondously. Palliative review of systems: Pain:SOme Left flank pain from ribs, helped by patch Dyspnea: GI symptoms:Denies nausea Appetite:Good (food on lunch tray and home provided food appears untouched on table) Depression:NQ Anxiety: None Emotional Distress:It's been really hard Spiritual/Existential Distress: Labs: Cr: 0.7 Liver panel: AST 124, ALT 16, alk phos 147 Albumin: 2.5 CBC: Hemoglobin 7.9 (9.6 yesterday upon admission), white blood cell count 2.0, platelets 130 K Advanced Care Planning: Advanced Directive: None on file. SHe says she does not have one. Health Care Agent: She would want Trish to be health care agent, Daughter Gavi would be alternate. Francesca Wood daughter is durable Power of atty. COLST: Full code. Limitations: Assessment and Plan Assessment and plan (1) Palliative care encounter: Status: Acute Assessment and plan: 73 yo woman from [facility] followed by naturopathic physician admitted with Failure to thrive with 11 kg weight loss (from reported baseline 135#), frequent falls, generalized weakness, significant anemia, pleural effusions and confusion/cognitive impairment. No obvious malignancy or metabolic derangement found thus far. Head CT without contrast only shows R sinus effusion (she is complaining of R ear sxs). #Goals of Care/Advanced Care planning: She reports that she has a DPOA and repeatedly tells me that her has an advanced directive. But she herself does not have an AD or HCA. She is consistent with stating that she would want daughter Trish to be her HCA. She seems to understand what this means. HCA form is completed with her stated wishes, and signed and witnessed. She does not seem to have the attention/capacity today to discuss more complex advanced care planning (Code Status, etc). Plan is to have family meeting when possible with Trish and/r other family members. I will attempt to call Trish again tomorrow. #Confusion/cognitive Impairment: better history needed. i.e. from family. We will also see if Confusion clears over time. Staff concerned about possible depression or other mental health issue causing sxs. Addl hx from family will be helpful. Recommend: -I will attempt MOCA/MMSE next time I see patient. -Consider neurology consult. -I am not sure psychiatry consult will be helpful at this time, although may be in the future. #Weight loss: -Suggest calorie counts, as patient unreliable. #Anemia/Neutropenia: Concerning in conjunction with other sxs. -Hospitalist preceding with further workup. -Consider other anemia labs. (2) Abnormal weight loss: Status: Acute (3) Adult failure to thrive: Status: Acute (4) Normocytic anemia: Status: Acute (5) Pleural effusion, bilateral: Status: Acute (6) Cognitive impairment: Status: Acute PFSH All Active Problems (Updated 10/01/23 @ 21:32 by Yaquelin Christian MD) Cognitive impairment (Acute) Abnormal weight loss (Acute) Palliative care encounter (Acute) Sacral decubitus ulcer, stage II (Acute) Hypomagnesemia (Acute) Normocytic anemia (Acute) Lactic acidosis (Acute) Discharge planning issues (Acute) DVT prophylaxis (Acute) Hypoalbuminemia (Acute) Transaminitis (Acute) Multiple rib fractures (Acute) Protein calorie malnutrition (Acute) Pleural effusion, bilateral (Acute) Adult failure to thrive (Acute) Unintentional weight loss (Acute) Hx of falling (Acute) Acute lactic acidosis (Acute) Social History Smoking/Tobacco Use Status: Never Smoking risk assessment performed?: Yes Housing: house Exam Narrative Exam Narrative: Awake and alert, pleasant. Hard of hearing. Cachectic. Sits up in bed and then lays on Left side on own without any discomfort. seems to think long before answering question. SPeech seems fluid when she is able to reply. Orientation (It is 10/01/2023): September............. WHich is the year? , which is the day? 24. Corrected. Asked again and gives same answer. How many children? 5 children...no only 4 daughters.... Can only come up with names of three daughters. Very distressed cannot think of 4th name. Looks in phone. Unable to confirm with family tonight. Lunch tray untouched on table at 5 PM. I am going to eat that , I am hungry. BUt says she put fork in her bag and needs to find it (none found in bag). Dinner tray arrives. Does not want let dietary take lunch tray I will eat both. Results Last Vital Signs Temp 37.7 C H 10/01/23 12:46 Pulse 113 H 10/01/23 12:46 Resp 16 10/01/23 12:46 BP 101/69 10/01/23 12:46 Pulse Ox 98 10/01/23 12:46 Labs 10/01/23 12:05 10/01/23 06:20 Labs: Laboratory Results - last 24 hr 09/30/23 09/30/23 09/30/23 13:10 13:35 14:55 WBC 2.81 L RBC 3.33 L Hgb 9.6 L Hct 29.9 L MCV 90 MCH 28.8 MCHC 32.1 RDW 14.7 H Plt Count 157 MPV 9.8 Immature Gran % 6.8 Neutrophils % 52.9 Lymphocytes % 34.9 Monocytes % 4.3 Eosinophils % 0.0 Basophils % 1.1 Nucleated RBC % 3.2 H Absolute Neutrophils 1.49 Absolute Lymphocytes 0.98 L Absolute Monocytes 0.12 Absolute Eosinophils 0.00 Absolute Basophils 0.03 RBC Morphology Normal VBG Lactate 5.2 H* Sodium 136 Potassium 4.0 Chloride 99 Carbon Dioxide 24.2 Anion Gap 12.8 H BUN 11 Creatinine 0.7 Est GFR (CKD-EPI 2020) 91.26 Glucose 104 Calcium 9.0 Magnesium Total Bilirubin 0.6 AST 124 H ALT 16 Alkaline Phosphatase 147 H Creatine Kinase 44 Troponin I < 50 NT-Pro-B Natriuret Pep 495 H Total Protein 6.9 Albumin 2.5 L Folate > 20.0 H TSH 1.62 Urine Color Yellow Urine Clarity Clear Urine pH 6.0 Ur Specific [place] 1.020 Urine Protein Trace Urine Ketones Negative Urine Blood Negative Urine Nitrite Negative Urine Bilirubin Negative Urine Urobilinogen 0.2 Ur Leukocyte Esterase Negative Urine Glucose Negative COVID-19 Source SARS-CoV-2 (PCR) Influenza Type A (PCR) Influenza Type B (PCR) RSV (PCR) MRSA (TEM-PCR) 09/30/23 09/30/23 10/01/23 16:50 20:30 06:20 WBC 2.03 L RBC 2.89 L Hgb 8.2 L Hct 25.7 L MCV 89 MCH 28.4 MCHC 31.9 L RDW 14.6 Plt Count 130 MPV 10.0 Immature Gran % Neutrophils % Lymphocytes % Monocytes % Eosinophils % Basophils % Nucleated RBC % Absolute Neutrophils Absolute Lymphocytes Absolute Monocytes Absolute Eosinophils Absolute Basophils RBC Morphology VBG Lactate 3.6 H* Sodium 139 Potassium 4.4 Chloride 104 Carbon Dioxide 22.5 Anion Gap 12.5 H BUN 15 Creatinine 0.7 Est GFR (CKD-EPI 2020) 91.26 Glucose 84 Calcium 8.5 Magnesium 1.3 L Total Bilirubin AST ALT Alkaline Phosphatase Creatine Kinase Troponin I NT-Pro-B Natriuret Pep Total Protein Albumin Folate TSH Urine Color Urine Clarity Urine pH Ur Specific [place] Urine Protein Urine Ketones Urine Blood Urine Nitrite Urine Bilirubin Urine Urobilinogen Ur Leukocyte Esterase Urine Glucose COVID-19 Source SARS-CoV-2 (PCR) Influenza Type A (PCR) Influenza Type B (PCR) RSV (PCR) MRSA (TEM-PCR) Negative 10/01/23 10/01/23 10/01/23 08:28 10:10 12:05 WBC RBC Hgb 7.9 L Hct 24.6 L MCV MCH MCHC RDW Plt Count MPV Immature Gran % Neutrophils % Lymphocytes % Monocytes % Eosinophils % Basophils % Nucleated RBC % Absolute Neutrophils Absolute Lymphocytes Absolute Monocytes Absolute Eosinophils Absolute Basophils RBC Morphology VBG Lactate 4.6 H* 7.1 H* Sodium Potassium Chloride Carbon Dioxide Anion Gap BUN Creatinine Est GFR (CKD-EPI 2020) Glucose Calcium Magnesium Total Bilirubin AST ALT Alkaline Phosphatase Creatine Kinase Troponin I NT-Pro-B Natriuret Pep Total Protein Albumin Folate TSH Urine Color Urine Clarity Urine pH Ur Specific [place] Urine Protein Urine Ketones Urine Blood Urine Nitrite Urine Bilirubin Urine Urobilinogen Ur Leukocyte Esterase Urine Glucose COVID-19 Source Nasopharynx SARS-CoV-2 (PCR) Negative Influenza Type A (PCR) Negative Influenza Type B (PCR) Negative RSV (PCR) Negative MRSA (TEM-PCR)
--- NOTE | 2023-10-01 13:12 | NUR.NOTE ---
Nursing Note: At approximately 1200 on 10/01/23, this RN returned a call from Trish (pt.'s daughter - on HIPAA). Pt.'s daughter asking for an update regarding the management/treatment of pt.'s pneumonia, strengthening, and weight loss. RN updated pt.'s daughter that the pt. is receiving an IV antibiotic to treat the pneumonia and that the MD ordered acapella and incentive spirometer (IS) (two breathing exercisers) to help manage/treat the pneumonia and increase oxygenation and expectoration of any sputum. RN updated pt.'s daughter that the pt. has a PT consult ordered to help with strengthening. RN updated pt.'s daughter that the pt. has a nutrition consult ordered to help manage the weight loss. RN also informed pt.'s daughter that the pt. is receiving three meals a day, as well as, Ensure or Boost drinks, and that the pt. is also receiving a protein supplement three times a day. Pt.'s daughter verbalized understanding of the pt.'s plan of care. Pt.'s daughter then verbalized that for many many years, the pt. has been having an issue with ...excessive mastication when eating. She chews each bite of food for 5-20 minutes. So by the time she's had three or four bites of food, she's full. Pt.'s daughter also verbalized that ...it has gotten to the point of neuroses. Pt.'s daughter requesting that this issue be addressed. RN informed the pt.'s daughter that they would notify the charge nurse who would notify the MD. Pt.'s daughter verbalized understanding and then thanked the RN for their care of the pt. Phone call then ended.
[2023-10-01] MEDS: Lidocaine 5% Patch 1 PATCH TP (14:40)
[2023-10-01 15:11] LABS: Lab Add On Test DONE
[2023-10-01 15:15] LABS: Lactate 6.9 mmol/L (0.6-1.4)
--- NOTE | 2023-10-01 15:23 | W.PM.PROGNOT ---
Date of Service Date of service: 10/01/23 Time of Service: 15:23 Assessment and Plan Assessment and plan (1) Septic shock: Status: Suspected Assessment and plan: While the patient did have a fever, she was never hypotensive. I am investigating other etiologies of lactic acidosis such as dehydration or liver disease. I am not convinced, looking at her CT read, that she has a pneumonia, though I recognize it's likely given the rib fractures and atelectasis. I did order a CRP and a procalcitonin. Blood cultures are pending. Continue empiric cefepime. Encourage pulmonary toilet. Continue IVF and monitor blood cultures. Continue to monitor lactates. BPs stable. I think she is ok on the medical surgical floor for now with low threshold to transfer to the ICU. (2) CAP (community acquired pneumonia): Status: Suspected Assessment and plan: as above (3) Pleural effusion, bilateral: Status: Acute Assessment and plan: I agree that this is most likely due to hypoalbuminemia. Consider thoracenthesis. (4) Multiple rib fractures: Status: Acute Assessment and plan: Continue pain control and encourage IS/acapella. (5) Adult failure to thrive: Status: Acute Assessment and plan: BMI of 13.9 kg/m2. Nutrition consulted. The patient has not had age-appropriate cancer screening and should. Her CT chest/abdomen/pelvis did not reveal obvious masses. She does have abnormal LFTs which I am investigating. (6) Unintentional weight loss: Status: Acute Assessment and plan: As above (7) Protein calorie malnutrition: Status: Acute Assessment and plan: As above (8) Transaminitis: Status: Acute Assessment and plan: Obtain hepatitis studies, US RUQ (9) Hypoalbuminemia: Status: Acute Assessment and plan: Encourage PO intake (10) Lactic acidosis: Status: Acute Assessment and plan: ?truly due to sepsis vs liver disease. At this point, the level of lactate does not match the patient's appearance or her BPs and so I am inclined to think that this is not due to sepsis. COntinue IVF. Obtain US RUQ and hepatitis studies. (11) Normocytic anemia: Status: Acute Assessment and plan: Check anemia studies (12) Hypomagnesemia: Status: Acute Assessment and plan: Replete (13) Sacral decubitus ulcer, stage II: Status: Acute Assessment and plan: C/s wound care, PT (14) DVT prophylaxis: Status: Acute Assessment and plan: SCDs while testing for GI bleeding (15) Discharge planning issues: Status: Acute Assessment and plan: Full code C/s palliative care Subjective Subjective Interval history since last seen: Ms Polanco states that it was her lower back that's been hurting, and it has been hurting for the last couple of months, not her hips. She states that she has been seeing a bag machine operator and has been taking a number of supplements. She is going to write me a list of them and give them to me this afternoon. She does not drink alcohol. She states that early satiety had only started in the last couple of months. No abdominal pain, nausea, blood in stool. Has never had a colonoscopy or a mammogram. She does not have a family history of either breast or colon cancer. She denies dizziness, CP, SOB, n/v. Per nursing, the patient's daughter reported excessive mastication - she will chew on a single bite for prolonged periods of time, >10 min. Exam Narrative Exam Narrative: General: a pleasant cachectic -[place] female who is A&Ox2 (thinks it's 10/05/22), sitting up apparently comfortably in bed HEENT: EOMI, dry MM Heart: RRR, mildly tachycardic Lungs: diminished breath sounds at B bases Abdomen: soft, nontender, nondistended Extremities: trace edema BLEs Objective Last Vital Signs Temp 37.1 C 10/01/23 14:57 Pulse 102 H 10/01/23 14:57 Resp 17 10/01/23 14:57 BP 116/75 10/01/23 14:57 Pulse Ox 98 10/01/23 14:57 Laboratory Results - last 24 hr 09/30/23 09/30/23 10/01/23 16:50 20:30 06:20 WBC 2.03 L RBC 2.89 L Hgb 8.2 L Hct 25.7 L MCV 89 MCH 28.4 MCHC 31.9 L RDW 14.6 Plt Count 130 MPV 10.0 VBG Lactate 3.6 H* Sodium 139 Potassium 4.4 Chloride 104 Carbon Dioxide 22.5 Anion Gap 12.5 H BUN 15 Creatinine 0.7 Est GFR (CKD-EPI 2020) 91.26 Glucose 84 Calcium 8.5 Magnesium 1.3 L COVID-19 Source SARS-CoV-2 (PCR) Influenza Type A (PCR) Influenza Type B (PCR) RSV (PCR) MRSA (TEM-PCR) Negative Add-On Test Request 10/01/23 10/01/23 10/01/23 08:28 10:10 12:05 WBC RBC Hgb 7.9 L Hct 24.6 L MCV MCH MCHC RDW Plt Count MPV VBG Lactate 4.6 H* 7.1 H* Sodium Potassium Chloride Carbon Dioxide Anion Gap BUN Creatinine Est GFR (CKD-EPI 2020) Glucose Calcium Magnesium COVID-19 Source Nasopharynx SARS-CoV-2 (PCR) Negative Influenza Type A (PCR) Negative Influenza Type B (PCR) Negative RSV (PCR) Negative MRSA (TEM-PCR) Add-On Test Request 10/01/23 10/01/23 15:05 Unknown WBC RBC Hgb Hct MCV MCH MCHC RDW Plt Count MPV VBG Lactate 6.9 H* Sodium Potassium Chloride Carbon Dioxide Anion Gap BUN Creatinine Est GFR (CKD-EPI 2020) Glucose Calcium Magnesium COVID-19 Source SARS-CoV-2 (PCR) Influenza Type A (PCR) Influenza Type B (PCR) RSV (PCR) MRSA (TEM-PCR) Add-On Test Request DONE Time Spent with Patient Time Spent with Patient: 35-49 minutes Time was spent: preparing to see the patient(eg.review tests), obtaining and/or reviewing separately otained hiistory, ordering medications,tests, procedures, referring, communicating with other health career development coordinator/teacher, indepentently interpreting results, counseling the patient and care coordination
[2023-10-01 15:26] LABS: C-Reactive Protein 17.07 mg/dL (<or=0.5)
[2023-10-01 16:11] LABS: Procalcitonin < 0.1 ng/mL
--- NOTE | 2023-10-01 16:13 | IN_ITS ---
PT Notes Visit Reasons: Lactic Acidosis Physical Therapy Inpatient Initial Evaluation Date: 10/01/2023 Referring Doctor: Trish Tejada MD PT Orders: PT CONSULT: Limited ability Precautions: Fall. Standard. Activity as tolerated. Patient Profile/Admitting Diagnosis: Claudia is a 73-year-old female who presented to the ED on 09/30/2023 due to adult failure to thrive, repeated falls, and generalized weakness. Patient is admitted to [facility] of care for management of septic shock, community-acquired pneumonia, multiple rib fractures, adult failure to thrive, unintentional weight loss, and protein calorie malnutrition. PMHX: All Active Problems (Updated 09/30/23 @ 18:39 by Kishor Rodríguez MD) Multiple rib fractures (Acute) Protein calorie malnutrition (Acute) CAP (community acquired pneumonia) (Acute) Septic shock (Acute) Pleural effusion, bilateral (Acute) Adult failure to thrive (Acute) Unintentional weight loss (Acute) Hx of falling (Acute) Acute lactic acidosis (Acute) Social History/Home Situation: Lived alone in [place], [place]. Has been needing to come to daughter's house in [place], [place] recently due to worsening health status and repeated falls. Did not use any assistive ambulatory devices prior to admission. Equipment Owned/DME: None Subjective: [place] much better to be moving. Happy to have gotten patches on her back as pain is now much controlled. Agreeable to getting mobilized out of bed using front- wheeled walker. Denied headache, chest pain, and lightheadedness throughout session. Objective: General Observation: Resting in bed. Low BMI. IV access through R UE. Pain patches on low back. Mental Status: Alert and oriented as to person, place, time, and purpose. Able to pay attention, focus, and respond appropriately. Pain: 1/10 in low back Vital Signs: Closely monitored by nursing staff ROM: Right Upper Extremity: Shoulder Flexion WFL. Shoulder abduction WFL. Elbow flexion WFL. Wrist flexion WFL. Functional opening and closing of hand WFL. Left Upper Extremity: Shoulder Flexion WFL. Shoulder abduction WFL. Elbow flexion WFL. Wrist flexion WFL. Functional opening and closing of hand WFL. Right Lower Extremity: Hip flexion WFL. Hip abduction WFL. Knee flexion WFL. Ankle dorsiflexion to neutral only. Ankle plantarflexion WFL. Left Lower Extremity: Hip flexion WFL. Hip abduction WFL. Knee flexion WFL. Ankle dorsiflexion to neutral only. Ankle plantarflexion WFL. Strength: Right Upper Extremity: Shoulder flexors 3+/5. Shoulder abductors 3+/5. Elbow flexors 3+/5. Elbow extensors 3+/5. Electrical Design Technician strong. Left Upper Extremity: Shoulder flexors 3+/5. Shoulder abductors 3+/5. Elbow flexors 3+/5. Elbow extensors 3+/5. Electrical Design Technician strong. Right Lower Extremity: Hip flexors 3+/5. Hip abductors 3+/5. Knee flexors 3+/5. Knee extensors 3+/5. Ankle dorsiflexors 3-/5. Ankle plantarflexors 4-/5. Left Lower Extremity: Hip flexors 3+/5. Hip abductors 3+/5. Knee flexors 3+/5. Knee extensors 3+/5. Ankle dorsiflexors 3-/5. Ankle plantarflexors 4-/5. Bed Mobility/Transfers: Moderate cueing provided for use of B hands as needed for support, movement sequence, AD management, and posture to reduce fall risk and minimize pain report Rolling stand by assist Supine to sit stand by assist Sit to supine stand by assist Sit to stand contact guard assist with FWW Stand to sit contact guard assist with FWW Bed to toilet seat contact guard assist with FWW Gait: Facilitated safe and correct performance of level surface ambulation using front wheeled walker with minimal assist especially during directional changes as patient tends to lose balance minimally as she cross the R foot over L and sways to the L. Moderate verbal cueing provided for safe directional changes, movement sequence, AD management, and posture to reduce fall risk and minimize pain report. Balance: Static Sitting: Normal Dynamic Sitting: Normal Static Standing: Fair Dynamic Standing: Fair Special Tests: Mobility Limitations Standardized Measure [facility] AM-PAC 6 clicks Basic Mobility Inpatient Short Form: Raw Score: 19 CMS Score: 42% deficit Informed Consent/Education: Patient was instructed in purpose of PT consult and plan of care. Agreeable to proceed with established PT POC to achieve personal goals. Assessment: Patient presents with clinical signs and symptoms consistent with current/admitting diagnoses that have resulted to mobility limitations, gait instability, generalized weakness, and overall ADL decline as demonstrated by the following impairment level findings: 1. Decreased strength to b UE/LE major muscle groups 2. Impaired sitting/standing balance 3. Impaired activity tolerance Impairments are contributing to the following functional limitations: 1. Decline in bed mobility skills 2. Decline in transfer skills 3. Difficulty with ambulation without assistive device and physical assistance 4. Increased completion time for mobility ADL performance 5. Increased risk for falls 6. Difficulty with managing steps alone safely Patient is assessed as a [id number] moderate complexity based on the following: History: 73-year-old female who reported with past medical history as indicated above Examination: Demonstrable impairment in strength, balance, and mobility level with underlying impairments and functional limitations as exhibited above as well as deficit score of 42% utilizing the [facility] Mobility Inpatient Short Form Presentation: Evolving Decision Makin moderate complexity Goals: Goals X1 week 1. Supine-Sit independent 2. Sit-Supine independent 3. Sit-Stand independent 4. Stand-Sit independent with FWW 5. Bed-Chair independent with FWW 6. Chair-Bed independent with FWW 7. Independent gait on level surface with use of FWW for at least 300 feet without report of pain nor dyspnea 8. Independent stair negotiation while holding onto B rails for at least 3 steps without report of pain nor dyspnea 9. Independent with home exercise program 10. Good static and dynamic standing balance/tolerance Plan of Care/Treatment Plan: 1-2x/day, 7 days/week x 1 week. Plan of care has been reviewed with the ASSISTANT ACCOUNT MANAGER providing the service under Physical Therapy direction. Initiate Physical Therapy intervention for pain management as needed, strengthening, bed mobility, transfers, gait, stairs, balance training, and use of assistive device. DISCHARGE RECOMMENDATIONS: [] Home with no services [] [X] Home with services. Patient will benefit from home health PT services in order to progress mobility level using least restrictive assistive ambulatory device, assess home safety, identify additional equipment needs, and establish a functional maintenance program that will increase ability of patient to remain at home. [] Home with outpatient PT [] [] SNF for continued rehabilitation [] [] [facility] [] [] SNF versus LTC based on ability to participate and progress [] TREATMENT CODE/TIME: 56777 x 20 minutes for 1 unit, 76777 x 12 minutes for 1 unit (16:13-16:45). Thank you for the opportunity to participate in the care of this patient. Johanna Stafford PT, DPT, CLT [facility] [place], [place]
--- NOTE | 2023-10-01 17:16 | INITIAL_ITS ---
Date of service: 10/01/23 Time of Service: 17:16 Care Management Initial Assmt Initial Assessment REASON FOR HOSPITALIZATION:: lactic acidosis PREVIOUS FUNCTIONAL STATUS/SOCIAL/FAMILY SUPPORTS:: Joselin lives in [place], [facility]. She has been the primary caregiver for her , who she was able to place at [facility] recently, as his care needs were too difficult. She has since been staying with her daughter, Raquel, in [place]. She has five children who all live nearby, as well as grandchildren, who are all very supportive. She does require some assistance, although remains mostly independent with ADLs. CURRENT FUNCTIONAL STATUS:: Joselin was sitting up in bed when CM met with her. Her grandson was visiting. They were both pleasant and engaged well in conversation. Joselin stated that it was hard having to transition her to a retirement, but he is nearby and she plans to visit often. Per report, she has a very low BMI. She stated that she does not have much of an appetite. Her grandson brought her food from home today; she stated that her daughter is a very good cook, so she eats more living with her. She intends to return to her daughter's home once she is discharged, and is considering HH support. CM will continue to follow. ADVANCE DIRECTIVES:: Not on file Has patient been provided with info about the portal/API?: Yes Did the patient sign up for the portal?: No CODE STATUS:: Full Code INSURANCE COVERAGE / FINANCIAL ISSUES:: MCR CURRENT HOME/COMMUNITY SERVICES/EQUIPMENT:: Joselin's daughter is supporting her at her home currently. PRIMARY CARE PHYSICIAN:: unknown POTENTIAL DISCHARGE NEEDS:: Evaluations for further needs, follow up appointments. PATIENT/FAMILY EDUCATION NEEDS:: Review discharge instructions and limitations, discussion of self care needs including ask me three. ANTICIPATED BARRIERS TO DISCHARGE:: None. TRANSPORTATION:: via private vehicle by family. PLAN:: Anticipate Joselin will return home once medically cleared. She may benefit from new orders for HH RN. Her daughter will drive her home via private vehicle. She will follow up with her PCP and discharge plan of care. CM will continue to follow. PFSH All Active Problems (Updated 10/01/23 @ 15:44 by Trish Tejada MD) Sacral decubitus ulcer, stage II (Acute) Hypomagnesemia (Acute) Normocytic anemia (Acute) Lactic acidosis (Acute) Discharge planning issues (Acute) DVT prophylaxis (Acute) Hypoalbuminemia (Acute) Transaminitis (Acute) Multiple rib fractures (Acute) Protein calorie malnutrition (Acute) Pleural effusion, bilateral (Acute) Adult failure to thrive (Acute) Unintentional weight loss (Acute) Hx of falling (Acute) Acute lactic acidosis (Acute) Social History Smoking/Tobacco Use Status: Never Smoking risk assessment performed?: Yes Housing: house SDOH(Care Management) Screening Will the Patient Participate in the Screening?: Yes Do you worry about having a steady place to live?: no In the past 12 months, have you had to go without electric, gas, oil or water in your home?: no Have you or anyone in your house had to go without enough food to eat?: no Has lack of transportation kept you from medical appointments or from doing things needed for daily living?: no Has anyone in your support network made you feel unsafe for any reason?: no
[2023-10-01 18:52] LABS: Lactate 6.9 mmol/L (0.6-1.4)
[2023-10-01 19:09] LABS: Salicylate < 2.8 mg/dL (<2.8)
[2023-10-01 19:10] LABS: Lithium < 0.2 mmol/l (0.6-1.2)
[2023-10-01] MEDS: Lidocaine Patch Removal 1 EACH TD (21:36)
[2023-10-02] VITALS (8 sets, daily range): BP systolic 101–122; BP diastolic 67–90; PULSE 97–111; RESP 14–26; TEMP 36.4–38.6; O2SAT 94–98
[2023-10-02] MEDS: Lactated Ringers 1,000 ML 75 ML IV (02:06)
[2023-10-02] MEDS: Acetaminophen 325 MG TAB PO ×3 (04:45→21:19)
[2023-10-02] MEDS: CEFEPIME 2 GM in Normal Saline 100 ML IVPB ×2 (05:08→17:31)
[2023-10-02 06:51] LABS: HCT 23.8 % (36.0-46.0); MCH 29.5 pg (27.0-33.0); MCHC 33.6 % (32.0-36.0); MCV 88 fL (80-95); MPV 10.1 fL (8.0-11.0); Platelet Count 114 10^3/uL (130-400); RBC 2.71 10^6/uL (3.93-5.22); RDW 14.6 % (11.7-14.6); RDW-SD 43.2 fL
[2023-10-02 06:55] LABS: WBC 1.93 10^3/uL (4.4-10.8)
[2023-10-02 07:28] LABS: Absolute Lymphocyte Count 0.58 10^3/uL (1.2-3.4); Absolute Monocyte Count 0.04 10^3/uL (0.1-0.8); Absolute Neutrophil Count 1.25 10^3/uL (1.2-6.7); Anisocytosis 2+; Bands % 13; Diff Comment Manual Differential; Metamyelocytes % 2; Myelocytes % 1; Poikilocytes 1+; Polychromasia Present
[2023-10-02] MEDS: Normal Saline Flush 10 ML SYR IVP ×2 (07:45→21:20)
[2023-10-02] MEDS: Pantoprazole 40 MG VIAL IVP (07:46)
[2023-10-02 07:50] LABS: Iron 41 ug/dL (50-170); Total Iron Binding Capacity 137 ug/dL (250-450); Transferrin Sat 30 % (15-50)
[2023-10-02 08:14] LABS: Anion Gap 12.8 mmol/L (3-11); BUN 12 mg/dL (7-18); CO2 23.2 mmol/L (21.0-32.0); CREATININE 0.7 mg/dL (0.55-1.02); Calcium 8.6 mg/dL (8.5-10.1); Chloride 101 mmol/L (98-107); Estimated GFR 91.26 (mL/min/1.73m2); Folate 12.3 ng/mL (8.6-20.0); Glucose 82 mg/dL (74-106); Magnesium 1.3 mg/dL (1.8-2.4); Potassium 3.6 mmol/L (3.5-5.1); Sodium 137 mmol/L (136-145); Vitamin B12 938 pg/mL (193-986)
[2023-10-02 08:15] LABS: Ferritin > 2000 ng/mL (8-252)
--- NOTE | 2023-10-02 10:24 | DI.US_ITS ---
Exam(s) US ABDOMEN EXAM: US ABDOMEN CLINICAL HISTORY: transaminitis TECHNIQUE: Ultrasound of complete upper abdomen performed using standard protocol. COMPARISON: US US ECHOCARDIOGRAM from 09/30/[address] CHEST/ABD/PEL WO from 09/30/2023 FINDINGS: There is no ascites evident. However, there are bilateral pleural effusions evident. LIVER: There are no hepatic lesions evident nor obvious dilatation of intrahepatic ducts. GALLBLADDER/BILIARY: There are no gallstones. No gallbladder wall edema nor pericholecystic fluid. The common hepatic duct isnot dilated, measuring 3-4mm at the level of owen hepatis. PANCREAS: There is no evidence of pancreatic mass nor dilatation of the pancreatic duct. SPLEEN: The spleen is not enlarged and there are no intrasplenic lesions evident. KIDNEYS:Right kidney unremarkable. There is a 9 millimeter cyst in the superior pole the left kidney , this most probably correspond to the finding on CT scan. ABDOMINAL AORTA: There is no evidence of abdominal aortic aneurysm. IVC: Normal diameter where visualized. IMPRESSION: 1. No evidence of cholelithiasis nor dilatation of the biliary tree. 2. No other significant ultrasound findings in the upper abdomen. 3. There is a 9-10 mm cyst in the superior pole of the left kidney correspond to what is seen on CT scan. There are bilateral pleural effusions noted. No evidence of ascites. DATA REPOSITORY:
[2023-10-02] MEDS: Lidocaine 5% Patch 1 PATCH TP (10:41)
--- NOTE | 2023-10-02 11:40 | PT.INTREAT ---
Date of service: 10/02/23 Time of Service: 11:40 PT Notes Visit Reasons: Lactic Acidosis Inpatient Physical Therapy Treatment Note [facility] Date: 10/02/23 PRECAUTIONS: Fall, standard, activity as tolerated. SUBJECTIVE: Patient is soft spoken and doesn't say much. 2 visitors present, patient's daughter and a male. Per their report, patient is cognitively clearer today. OBJECTIVE: Supine in bed. Agreeable to therapy? PAIN: none reported VITALS: monitored by nursing staff. ? BED MOBILITY/TRANSFERS? Rolling L/R: not assessed Supine-sit: set up assist to move blankets, lower foot of bed. HOB moderately raised. Bilateral handrails. Extended time. ?Sit-supine: set up assist to move blankets. HOB moderately raised. Bilateral handrails. Extended time.? Sit-stand: SBA? Stand-sit: SBA ? Bed-Chair: SBA ? Chair-bed: SBA Gait Training ([id number]): Direct one-on-one instruction and skilled instruction in: [x] employing an assistive device [] modified weight-bearing status [x] movement sequencing [x] turning and movement with proper form [x] Provided verbal cues for equipment management and technique [x] Provided instruction in gait pattern [] Patient education regarding pacing and breathing techniques to maximize activity tolerance? GAIT? Facilitated safe and correct performance of level surface ambulation using front wheeled walker with minimal assist especially during directional changes as patient tends to lose balance minimally as she cross the R foot over L and sways to the L. Moderate verbal cueing provided for safe directional changes, movement sequence, AD management, and posture to reduce fall risk and minimize pain report. 300 feet with 1 seated rest. ? STAIRS: Patient ascends and descends 2 six inch stairs with bilateral handrails and CGA. ? ASSESSMENT:? Patient tolerates therapy well, becomes slightly SOB with exertion but this resolves quickly with rest. No report of increased pain. PLAN: Continue global strengthening per plan of care until patient is medically cleared for discharge. TREATMENT CODE/TIME: 12 minutes beginning at 11:40 and 19 minutes beginning at 15:56 for a total of 31 minutes today.
[2023-10-02] MEDS: MAGNESIUM SULFATE 4 GM/100 ML BAG IVPB (12:52)
[2023-10-02] MEDS: Protein Nutritional Supplement 16 GM 1 OUNCE PACKET PO (12:57)
--- NOTE | 2023-10-02 13:13 | CMPROGNOTE_ITS ---
Date of service: 10/02/23 Time of Service: 13:13 Care Management Progress Note Progress Note Text Progress Note Text: S/O: Joselin was sitting up in bed when CM met with her. Her daughter was in the room visiting. Joselin engaged minimally, and closed her eyes through most of the meeting. CM discussed resources with her daughter including [employer] for insurance support; her daughter stated that she only has [employer] A, which may be a barrier to her obtaining services in the community. CM will send a referral to [employer] for insurance navigation. Joselin has a psychiatric consultation scheduled for today, due to MD's concern regarding eating disorder, and her daughter stated that she will plan to be present. CM will continue to follow. A: Claudia is a 73 year old female admitted to [facility] on 09/30/23 with lactic acidosis. P: Anticipate Joselin will return home once medically cleared. She may benefit from new orders for RN. Her daughter will drive her home via private vehicle. She will follow up with her PCP and discharge plan of care. CM will continue to follow. SDOH(Care Management) Screening Will the Patient Participate in the Screening?: Yes Do you worry about having a steady place to live?: no In the past 12 months, have you had to go without electric, gas, oil or water in your home?: no Have you or anyone in your house had to go without enough food to eat?: no Has lack of transportation kept you from medical appointments or from doing things needed for daily living?: no Has anyone in your support network made you feel unsafe for any reason?: no
--- NOTE | 2023-10-02 15:10 | W.SPSTE ---
Date of service: 10/02/23 Time of Service: 12:00 Subjective Clinical (Bedside) Swallow Evaluation - Inpatient Speech Language Pathology Referred by: Trish Tejada MD Start time: 12:00 End time: 12:30 Total patient contact: 30 min Referral Type: Routine Swallow Consult Precautions: Standard, Full Code, Fall Reason for Referral/HPI: Claudia is a 73 y/o F who presented for change in mental status, unintentional weight loss, and increasing falls. Admitted failure to thrive,community-acquired pneumonia, subacute rib fractures, pleural effusion and probable secondary septic shock. [facility] MEDIC[facility] IMPRESSIONS & RECOMMENDATIONS: Patient presents with primarily oral phase deficits, most notably a severely prolonged mastication phase possibly contributing to early satiety, certain causing poor efficiency of PO intake. However, noting reduced ability to follow some instructions and complete some oral-motor coordination tasks, suspect an element of reduced sensori-motor awareness 2/2 acute confusion/AMS in setting of sepsis. However, strong suspicion based on family report that these changes are superimposed on a psych element and possible longstanding ED - would recommend further RD intervention as well as psych referral. Will continue to train strategies to improve efficiency. Patient is willing to trial a modified diet to reduce need for mastication in an effort to improve PO efficiency, but if this is not helpful or she objects to the diet texture, ok to advance solids as requested by patient. Regardless of diet order, request trays include at least some pureed textures in addition to more advanced solids in order to promote higher efficiency. FURTHER INPATIENT [facility]OSP[facility] MEDICINE SERVICES: Patient to be followed while on unit, at least 1x f/u to ensure diet appropriateness, revisit efficiency strategies/education. Suspect will not remain on active caseload and will not require further CHIEF OF HOSPITAL MEDICINE services. Suggested Referrals/Consults: Psych DISCHARGE RECOMMENDATIONS: No further CHIEF OF HOSPITAL MEDICINE services indicated/Please re-refer as needed Diet Recommendations: ? SOLIDS: 5-Minced & Moist Solids *Patient was agreeable to try this texture in order to reduce mastication time, please advance as requested if patient finds this diet unsuitable or unhelpful in reducing mastication. LIQUIDS: 0-Thin Liquids MEDICATIONS: As tolerated RISK MANAGEMENT: Level of Assistance/Supervision: Intermittent supervision for all PO intake for reminders to reduce mastication time Positioning and environment: PO intake only when awake/alert? As upright as tolerated, use HOB controls/bed tilt to achieve upright positioning Oral hygiene BID/2x per day Strategies/Adaptations/Assistive Equipment: Remind patient: Chew no more than 20 times, then swallow. Offer sips of liquid PRN to encourage oral clearance, reduce unnecessary mastication. Maintain fully upright position at least 30 minutes after meals Education Provided to: Nursing Patient Family Physician Topics Addressed: anatomy/physiology of swallowing mechanism impact of current diagnoses on swallow function role of [facility] MEDICINE in management of swallow disorders overt s/sx to monitor for re: potential aspiration of food / liquids relationship between respiratory function and deglutition rationale and instruction for additional risk management strategies as below SUBJECTIVE: Patient received: alert/awake. Agreeable to evaluation. Pain Reported:0 Baseline Swallow Function: Patient denies swallowing difficulty prior to admission and eats a regular diet at baseline. Patient reports I'm not trying to lose weight. Patient does not eat meat or dairy but is agreeable to have some dairy to improve health. She does eat fish. She is sometimes vague in her responses and doesn't always make adequate inference or show insight into issues. Appears unaware that her eating has changed and denies any abnormal eating behaviors. Patient's family reports that she has always chewed for a very long time, as long as they can remember, but that it has gotten gradually worse especially over the last several years, and acutely exacerbated at this time along with mental status. Report sometimes seeing her chew a bite of food continuously for 20 minutes. Patient and family deny significant hx GERD, s/sx aspiration, or sensation of pharyngeal or esophageal stasis. At home she typically cooks and prepares food for herself without issue. Up until recently she was also caring for her with dementia, but he moved into a facility in [place] just recently. OBJECTIVE Patient positioning: As upright as possible using HOB/bed tilt controls Respiratory status: Room air, Tolerates well without s/sx dyspnea Orientation/Mental status: Oriented to self, Oriented to situation, Not limited to date/time. Unable to state when she moved to [place] or year of her daughter's . Appears with low insight into deficits, recall of recent events is impaired. confused, sometimes requiring extra supports to follow instructions. Speech: WFL but low volume. Likely close to baseline. Oral Mechanism Examination: Dentition: Natural dentition Oral mucosa: Poor oral care? Cranial Nerve Assessment: CN V ? Trigeminal Facial Sensation WNL Jaw Strength/ROM WNL ?WNL CN VII- Facial WNL strength/ROM Coordination. WNL CN IX ? Glossopharyngeal WNL palatal elevation with phonation. No evidence of nasal emissions WNL CN X ? Vagus WNL Vocal quality and volume. Strong/sharp volitional cough WNL CX XII ? Hypoglossal Appearing with low awareness/coordination of tongue position. Some difficulty coordinating L/R lateralization vs mild weakness. abnormal PO Intake: Trials Assessed: IDDSI 0 Thin Liquids IDDSI 4 Puree Solid IDDSI 5 Minced and Moist Solid IDDSI 7 Regular Solid Oral Phase Findings: Mild lingual residue - diffuse Severely prolonged mastication, somewhat resistant to cues to swallow but improves over course of session. Rotary pattern intact. With sips liquid, she performs an oral hold with puffed cheeks before initiating swallow. This is not stimulable to suppress with verbal cues. Pharyngeal Phase Findings: WFL Esophageal Phase Findings: No observed or reported symptoms at bedside Other: Patient reports early satiety after just 3 bites and several sips water. ? [place] Swallow Protocol Results: FAIL ? Unable vs unwilling to complete without stopping/starting PLAN: CH[facility]OSPITAL MEDICINE to follow patient while on unit and will re-evaluate for diet upgrades PRN per collaboration with nursing or as indicated by improvements in PO intake or efficiency. Goals: Tree Inspector Goals: Patient will remain free from aspiration-related illness, malnutrition, and dehydration. Short Term Goals: Patient will complete swallows after 20 or less mastication cycles for improved efficiency of PO intake. Patient/family will verbalize comprehension of education provided re: dx , strategies to maximize functioning, and role of ST. CH[facility]OS[facility] MEDICINE CPT Code: 73748 Clinical Swallowing Evaluation
--- NOTE | 2023-10-02 15:38 | PHA.REVIEW2 ---
Pharmacy Admission Review Admission Clinical Review Admission Pharmacy Review: Cognitive impairment (Acute) Abnormal weight loss (Acute) Palliative care encounter (Acute) Sacral decubitus ulcer, stage II (Acute) Hypomagnesemia (Acute) Normocytic anemia (Acute) Lactic acidosis (Acute) Discharge planning issues (Acute) DVT prophylaxis (Acute) Hypoalbuminemia (Acute) Transaminitis (Acute) Multiple rib fractures (Acute) Protein calorie malnutrition (Acute) Pleural effusion, bilateral (Acute) Adult failure to thrive (Acute) Unintentional weight loss (Acute) Hx of falling (Acute) Acute lactic acidosis (Acute) No Known Allergies Allergy (Unverified 09/30/23 12:34) Resuscitation Status Full Code Height 6 ft Weight 46.5 kg Pharmacy Admission Review Renal Dosing Renal Dosing: BUN 12 mg/dL (7-18) 10/02/23 06:35 Creatinine 0.7 mg/dL (0.55-1.02) 10/02/23 06:35 Medications needing adjustments: Reviewed (CrCl 36.72 mL/min) List of meds needing interventions: Current meds okay, watch cefepime dose if renal function decreases Anticoagulation Anticoagulation: Hgb 8.0 g/dL (11.2-15.7) L 10/02/23 06:35 Hct 23.8 % (36.0-46.0) L 10/02/23 06:35 Plt Count 114 10^3/uL (130-400) L 10/02/23 06:35 Creatinine 0.7 mg/dL (0.55-1.02) 10/02/23 06:35 DVT Prophylaxis: Reviewed (Per progress note, provider holding off due to possible GI bleed) Relevant Labs Relevant Labs: Sodium 137 mmol/L (136-145) 10/02/23 06:35 Potassium 3.6 mmol/L (3.5-5.1) 10/02/23 06:35 Chloride 101 mmol/L (98-107) 10/02/23 06:35 Magnesium 1.3 mg/dL (1.8-2.4) L 10/02/23 06:35 C-Reactive Protein 17.07 mg/dL (<or=0.5) H 10/01/23 15:05 Electrolytes, C-Reactive P, ESR: Reviewed (Mg 1.3 (repleting), WBC decreased from 2.03 to 1.93, Hgb 8, PLT 114) Cardiac Review Cardiac Review: Troponin I < 50 ng/L (< or =60) 09/30/23 13:10 NT-Pro-B Natriuret Pep 495 pg/mL (<300) H 09/30/23 13:10 BP, HR, EF%: Reviewed (BP WNL, HR 110 - elevated all day) QTc Review QTc: Reviewed (365 from 09/30/23) IV to PO Switch IV Medications: Reviewed (Cefepime and pantoprazole) Home Meds Home Med List reviewed: Intervened Relevent Home Meds Not ordered & why?: Calcium, ibuprofen and supplements Patient had supplements brought in from home. No orders were put in for them as provider is concerned about possible toxicities. Looking into the possible side effects of the supplements. Current Meds Current Medication Order Review: Reviewed Pharmacy Antibiotic Review Relevant Labs: Relevant Labs 10/01/23 15:05 Procalcitonin < 0.1 Pharmacy Antibiotic Activity: C/S review and Reviewed, no change Comments: Cefepime 2g q12h day 3. Has a temperature of 38.6 at 1447. Blood cultures are showing no growth.
--- NOTE | 2023-10-02 18:44 | W.PM.PROGNOT ---
Date of Service Date of service: 10/02/23 Time of Service: 18:46 Assessment and Plan Assessment and plan (1) Pleural effusion, bilateral: Status: Acute Assessment and plan: No obvious PNA on CT. Most likely due to hypoalbuminemia, but will obtain an echo. D/c IVF. Consider diuresis and thoracenthesis. (2) Septic shock: Status: Suspected Assessment and plan: Blood cx NGTD. Lactic acidosis did not respond to IVF/abx. I think this may be more of a hepatic issue or reflux into the liver in setting of fluid overload. At this point, will stop IVF. Continue empiric antibiotics. I am not convinced she has a PNA on CT. Encourage pulmonary toilet. BPs stable. (3) CAP (community acquired pneumonia): Status: Suspected Assessment and plan: as above (4) Multiple rib fractures: Status: Acute Assessment and plan: Continue pain control and encourage IS/acapella. (5) Adult failure to thrive: Status: Acute Assessment and plan: BMI of 13.9 kg/m2. Nutrition consulted as is psychiatry: ?eating disorder. The patient has not had age-appropriate cancer screening and should. I discussed this with her and her daughter. Her CT chest/abdomen/pelvis did not reveal obvious masses. She does have abnormal LFTs which I am investigating. (6) Unintentional weight loss: Status: Acute Assessment and plan: As above (7) Protein calorie malnutrition: Status: Acute Assessment and plan: As above Supplement thiamine. Being followed by nutrition. (8) Transaminitis: Status: Acute Assessment and plan: Await hepatitis studies. US RUQ negative. Consider reflux into the liver from fluid overload - obtain echo. Consider effects of dietary supplements the patient was taking as outpatient. Check tick panel. Consider GI consult. (9) Hypoalbuminemia: Status: Acute Assessment and plan: Encourage PO intake (10) Lactic acidosis: Status: Acute Assessment and plan: ?truly due to sepsis vs liver disease. As above. Also consider reflux into the liver/congestive hepatopathy. D/C IVF. (11) Normocytic anemia: Status: Acute Assessment and plan: Check anemia studies (12) Hypomagnesemia: Status: Acute Assessment and plan: Replete (13) Sacral decubitus ulcer, stage II: Status: Acute Assessment and plan: C/s wound care, PT (14) DVT prophylaxis: Status: Acute Assessment and plan: SCDs while testing for GI bleeding (15) Discharge planning issues: Status: Acute Assessment and plan: Full code C/s palliative care Subjective Subjective Interval history since last seen: Ms Polanco states that she is actually feeling a little better today. She states that, since she saw the speech therapist, she started chewing less. She shares with me that she had been chewing like that because she wanted for the food to be fully digested because she had been having bouts of constipation (which to her means not having daily BMs, though it is sometimes uncomfortable). She had not been looking at the fiber intake to help prevent constipation. This is a long-standing issue. When I asked her if she had ever thought she might have an eating disorder, she is not sure. She agrees to speak to mental health. Her daughter at bedside actually notes that the cognitive changes the family had noticed in her were fatigue, spending more time in bed, speaking less on the phone, acting depressed. She was not confused, per se. Ms Polanco states that her breathing today was weird. It was hard to breathe when she was getting her ultrasound done. Denied dizziness, CP, n/v, abdominal pain. She did have a BM today. Her PO intake is increasing. Exam Narrative Exam Narrative: General: a pleasant cachectic -[place] female who is A&Ox3, sitting up at about a 30 degree angle in bed, appears to be sweating HEENT: EOMI, MMM Heart: RRR, mildly tachycardic Lungs: diminished breath sounds at L bases Abdomen: soft, nontender, nondistended Extremities: no edema BLEs Objective Last Vital Signs Temp 37.3 C 10/02/23 17:20 Pulse 110 H 10/02/23 14:47 Resp 14 10/02/23 14:47 BP 109/71 10/02/23 14:47 Pulse Ox 94 10/02/23 14:47 Laboratory Results - last 24 hr 10/01/23 10/02/23 10/02/23 18:40 06:35 06:35 WBC 1.93 L* RBC 2.71 L Hgb 8.0 L Hct 23.8 L MCV 88 MCH 29.5 MCHC 33.6 RDW 14.6 Plt Count 114 L MPV 10.1 Immature Gran % See Differential Neutrophils % 52.0 Band Neutrophils % 13 Lymphocytes % 30.0 Monocytes % 2.0 Eosinophils % 0.0 Basophils % 0.0 Metamyelocytes % 2 Myelocytes % 1 Nucleated RBC % 2.0 H Absolute Neutrophils 1.25 Absolute Lymphocytes 0.58 L Absolute Monocytes 0.04 L Absolute Eosinophils 0.00 Absolute Basophils 0.00 RBC Morphology See Below Polychromasia Present Poikilocytosis 1+ Anisocytosis 2+ VBG Lactate 6.9 H* Sodium 137 Potassium 3.6 Chloride 101 Carbon Dioxide 23.2 Anion Gap 12.8 H BUN 12 Creatinine 0.7 Est GFR (CKD-EPI 2020) 91.26 Glucose 82 Calcium 8.6 Magnesium 1.3 L Iron 41 L TIBC 137 L Transferrin % Sat 30 Ferritin > 2000 H Vitamin B12 938 Cancelled Folate 12.3 Salicylates < 2.8 [place] < 0.2 L 10/02/23 06:35 WBC RBC Hgb Hct MCV MCH MCHC RDW Plt Count MPV Immature Gran % Neutrophils % Band Neutrophils % Lymphocytes % Monocytes % Eosinophils % Basophils % Metamyelocytes % Myelocytes % Nucleated RBC % Absolute Neutrophils Absolute Lymphocytes Absolute Monocytes Absolute Eosinophils Absolute Basophils RBC Morphology Polychromasia Poikilocytosis Anisocytosis VBG Lactate Sodium Potassium Chloride Carbon Dioxide Anion Gap BUN Creatinine Est GFR (CKD-EPI 2020) Glucose Calcium Magnesium Iron TIBC Transferrin % Sat Ferritin Vitamin B12 Folate Cancelled Salicylates [place] Time Spent with Patient Time Spent with Patient: 35-49 minutes Time was spent: preparing to see the patient(eg.review tests), obtaining and/or reviewing separately otained hiistory, ordering medications,tests, procedures, referring, communicating with other health complex care nurse practitioner, indepentently interpreting results, counseling the patient and care coordination
--- NOTE | 2023-10-02 19:04 | W.TELEPSYCH ---
Date of service: 10/02/23 Time of Service: 19:05 Summary Note Array Telepsych Name: Claudia Polanco?: 1950 Date?and?Time: 10/02/2023 6:39:34 PM Location of the patient: [facility] IP?Location of the doctor: [place] Length of consult: 30 mins This evaluation was conducted via video telepsychiatry with the assistance of onsite staff Reason for consult: weight loss Requested by: [facility] History of Present Illness: 73-year-old female presents with her family for complaints of weakness, unintentional weight loss, weakness and frequent falls. According to patient's family, patient has been reportedly caring for her who has been in and out of nursing homes over the last few years. However, over the last few months she has had significant increase in stress as well as an associated unintentional 45 pound weight loss. Patient was seen and evaluated. She states that she never seen a psychiatrist in the past. She lives alone but last 2 days she was living with daughter. Patient states that she fell couple of months ago and has broken ribs and may have had an effect on not wanting to eat. Patient states that she has been feeling depressed as she had to place her in intermediate. She states that she was not eating due to her depression, she denies si/hi intent or plan. She states that she sleep well but used to be interrupted a lot when taking care of her . Collateral Contacted: Yes?Collateral name:?daughter was in the room?Collateral phone number:?Collateral relationship to the patient: Sleep issues?: Yes?Sleep Quantity:?poor?Sleep Quality:?poor Psychiatric History/Treatment History:? Past diagnoses: none Hospitalizations: No Current Treatment:No Suicide Assessment: PSS-3: 1) Over the past 2 weeks have you felt down, depressed or hopeless??Yes? 2) Over the past 2 weeks have you had thoughts of killing yourself??No 3) Have you ever in your life attempted to kill yourself??No Within the past 6 months??? [facility]-based Safety Assessment: Risk Factors Stressors: is in intermediate Attempts/Self-injury: No Impulsivity:No Drug/Alcohol History:No Trauma History:No Access to firearms:No HI/Violence/Property destruction:No Legal: No Family Psych History:No Family History of suicide:No Protective Factors:? Can handle stress well??No ? Mu-Ism??No ? External: Social supports/ Therapeutic relationships: Yes?Description:?daughter Relationship history: Living situation: currently living with daughter Employment: No Education: Responsibility to family/children/work: No Future orientation:Yes?Description: Health History: Medical History: see hpi Medications & Freq: no psych meds Allergies: nkda Mental Status Exam: Appearance and Attire:?Good eye contact, Thin Psychomotor agitation:?No abnormality Attitude and behavior:?Cooperative Speech:?No abnormality, Mood:?Depressed Affect:?Constricted Thought process:?Logical Thought content:?No abnormality Perception:?none Intel:?Average Abstract:?Appropriate Language:?No abnormality Orientation:?Oriented x 4 Sense:?Normal Knowledge:?Appropriate for education and socioeconomic status Memory:?Intact Insight:?Appropriate Judgement:?Appropriate Gait:?No abnormality Impression/Risk Assessment: Current Suicide Risk Elevated??No ? Current Violence Risk Elevated??No ? Issues with ability to care for self??No ? Summary: Based on evaluation patient has symptoms of depression, she has stressors with her being in intermediate. She denies si/hi intent or plan, no prior psych hx and unlikely she has an eating disorder and the significant weight loss can be due to depression. She is open to trying medications at this time. Diagnosis: F33.1 Major depressive disorder, recurrent, moderate CPT Codes: 33782 - Psychiatric Diagnostic Evaluation with Medical Services Treatment Plan:? General: Level of Care: Refer to outpatient psychiatrist upon discharge. Psychiatric Clearance: Yes? Observation level ? 1:1 needed?: No Pharmacological: Start Remeron 7.5 mg HS for depression/appetite stimulation. Patient psychotic?No Therapy: Follow up needed while in the hospital?: No Discussed plan with onsite instrument repairer steam plant: No Who none Other: Steve Rust MD
[2023-10-02 20:13] LABS: HBs Antibody, Qual Negative (See Note); HBs Antibody, Quant <3.1 mIU/mL (See Note); Hepatitis B Core Antibody Negative (Negative); Hepatitis B surface Ag Negative (Negative); Hepatitis C Ab w Rflx HCV PCR Negative (Negative)
[2023-10-02] MEDS: THIAMINE 500 MG in Normal Saline 100 ML 200 MG IVPB (22:02)
[2023-10-02] MEDS: Normal Saline 100 ML 200 ML (22:10)
--- NOTE | 2023-10-03 | DI.US_ITS ---
Exam(s) US EXTREMITY VENOUS BI EXAM: US EXTREMITY VENOUS BI CLINICAL HISTORY: FUO. TECHNIQUE: Bilateral lower extremity venous ultrasound performed using grayscale, color-flow, and sp ectral Doppler analysis. COMPARISON: No exams were available for comparison FINDINGS: The right common femoral, femoral and popliteal veins demonstrate normal compressibility, augmentatio n, and color Doppler. The posterior tibial and peroneal veins are patent. The saphenofemoral junctio n is unremarkable. There is no evidence of a Garcia's cyst. The soft tissues are unremarkable. The left common femoral, femoral and popliteal veins demonstrate normal compressibility, augmentation , and color Doppler. The posterior tibial and peroneal veins are patent. The saphenofemoral junction is unremarkable. There is no evidence of a Garcia's cyst. The soft tissues are unremarkable. IMPRESSION: 1. No evidence of a right lower extremity DVT. 2. No evidence of a left lower extremity DVT. DATA REPOSITORY:
[2023-10-03] MEDS: Lidocaine Patch Removal 1 EACH TD ×2 (00:26→23:40)
[2023-10-03 02:53] VITALS: BP 102/68; PULSE 97; RESP 17; TEMP 36; O2SAT 97
[2023-10-03] MEDS: CEFEPIME 2 GM in Normal Saline 100 ML IVPB ×2 (06:20→17:42)
[2023-10-03 06:33] LABS: Abs Immature Grans 0.12 10^3/uL (0.0-0.06); HCT 24.6 % (36.0-46.0); MCH 28.4 pg (27.0-33.0); MCHC 32.5 % (32.0-36.0); MCV 87 fL (80-95); MPV 10.1 fL (8.0-11.0); Platelet Count 127 10^3/uL (130-400); RBC 2.82 10^6/uL (3.93-5.22); RDW 14.8 % (11.7-14.6); RDW-SD 43.4 fL; WBC 2.36 10^3/uL (4.4-10.8)
[2023-10-03 07:01] LABS: Anion Gap 11.9 mmol/L (3-11); BUN 12 mg/dL (7-18); CO2 23.1 mmol/L (21.0-32.0); CREATININE 0.7 mg/dL (0.55-1.02); Calcium 8.3 mg/dL (8.5-10.1); Chloride 100 mmol/L (98-107); Estimated GFR 91.26 (mL/min/1.73m2); Glucose 108 mg/dL (74-106); Magnesium 1.7 mg/dL (1.8-2.4); Potassium 3.8 mmol/L (3.5-5.1); Sodium 135 mmol/L (136-145)
[2023-10-03 07:16] LABS: Absolute Basophil Count 0.02 10^3/uL (0.0-0.2); Absolute Eosinophil Count 0.05 10^3/uL (0.0-0.7); Absolute Lymphocyte Count 0.73 10^3/uL (1.2-3.4); Absolute Monocyte Count 0.14 10^3/uL (0.1-0.8); Absolute Neutrophil Count 1.49 10^3/uL (1.2-6.7); Bands % 6
[2023-10-03 07:18] LABS: Diff Comment Manual Differential; Hypochromasia 2+; Polychromasia Present
[2023-10-03 07:19] LABS: Poikilocytes 2+
[2023-10-03 07:29] VITALS: BP 99/66; PULSE 102; RESP 16; TEMP 36.6; O2SAT 96
[2023-10-03] MEDS: Acetaminophen 325 MG TAB PO ×3 (07:48→20:55)
[2023-10-03] MEDS: Protein Nutritional Supplement 16 GM 1 OUNCE PACKET PO ×3 (07:49→19:55)
[2023-10-03] MEDS: Normal Saline Flush 10 ML SYR IVP ×2 (07:49→19:55)
[2023-10-03] MEDS: Pantoprazole 40 MG VIAL IVP (07:49)
[2023-10-03 08:42] LABS: Lab Add On Test DONE
[2023-10-03] MEDS: Lidocaine 5% Patch 1 PATCH TP (08:55)
[2023-10-03] MEDS: THIAMINE 500 MG in Normal Saline 100 ML 200 MG IVPB ×3 (08:58→23:42)
[2023-10-03] MEDS: Magnesium Chloride 64 MG TABCR PO ×2 (08:59→19:54)
--- NOTE | 2023-10-03 09:42 | PT.INTREAT ---
PT Notes Visit Reasons: Lactic Acidosis Date: 10/03/2023 PRECAUTIONS: Fall. Standard. Activity as tolerated. SUBJECTIVE: Pt in recliner when approached for therapy this morning, pt eating breakfast agreed to participating with therapy after eating, Pt's daughter in pt's room visiting with pt. OBJECTIVE: ?IV line on right UE antecubital ? PAIN: none reported VITALS: closely monitored by nursing Therapeutic Activities [id number]: Direct one-on-one instruction in dynamic activities to improve functional performance. ?? BED MOBILITY/TRANSFERS? Rolling L/R: not performed Supine-sit: not performed ? Sit-supine: ? not performed ? Sit-stand: ?SBA? Stand-sit: ??SBA? Bed-Chair:? ?SBA ? Chair-bed: SBA Provided skilled cues and instruction on performance and technique throughout. Gait Training [id number]: Direct one-on-one instruction and skilled instruction in: Employing an assistive device Movement sequencing Turning and movement with proper form Provided verbal cues for equipment management and technique Provided instruction in gait pattern Patient education regarding pacing and breathing techniques to maximize activity tolerance? GAIT? Assistive Device: ?FWW? Weight bearing: FWB Assist: ?SBA? Distance:?150'x2 50'x2 ? Deviation: quick edgar, stoop forward posture, looking down at feet STAIRS: Up/down 3x4 and 2x6 using B rails and a step-through gait pattern with SBA ? THEREX: Patient was instructed in a seated LE strengthening program in a.m., to include: ankle pumps, heel raises, LAQ, hip flexion and hip abduction.? ASSESSMENT:?Pt very engaged and motivated, pt and caregiver education about energy conservation strategies, deep breathing exercise to help with ADAMS, and importance of staying active to improve circulation and prevent LE swelling. PLAN: Continue with balance training, global strengthening and general conditioning for improved safety, mobility and activity tolerance until pt is ready for DC. TREATMENT CODE/TIME: 68377h4, [id number] 25mins (9:15-9:45am)
[2023-10-03] MEDS: MAGNESIUM SULFATE 2 GM/50 ML BAG IVPB (10:37)
[2023-10-03 11:25] VITALS: BP 94/61; PULSE 99; RESP 16; TEMP 36.2; O2SAT 98
--- NOTE | 2023-10-03 14:16 | SPP_ITS ---
Date of service: 10/03/23 Time of Service: 07:50 Subjective It's much better! re: ability to eat Objective: Positioning: Upright in chair, tolerating room air, with breakfast tray PO Trials: L4 Puree yogurt L5 muffin L0 thin liquid via cup Oral Phase Findings: Prolonged mastication, though WFL Pharyngeal Phase Findings: WFL Assessment: Patient seen this date for dysphagia follow-up. She presented in bright spirits, reporting that she felt eating was going much better and was appreciative of modified diet (L5 minced/moist) which she felt made things easier. She expressed that she feels her excessive chewing began when she first began experiencing constipation, and was a way to help her digestion. Education reinforced re: benefit of complete chewing for swallowing/digestion though that extensive chewing can result in early satiety. Patient receptive to education provided. Ultimately she is tolerating diet well. No further SECURITY ASSISTANT needs indicated as do not anticipate patient's weight loss are related to underlying anatomical/physiological deficit. Patient/family would benefit from RD intervention to support dietary guidance for weight gain. Plan Discharge SECURITY ASSISTANT services Diet Recommendations: ? SOLIDS: 5-Minced & Moist Solids *Patient preference, however OK to advance solids if requested by patient LIQUIDS: 0-Thin Liquids MEDICATIONS: As tolerated RISK MANAGEMENT: Level of Assistance/Supervision: Intermittent supervision for all PO intake for reminders to reduce mastication time Positioning and environment: As upright as tolerated, use HOB controls/bed tilt to achieve upright positioning Oral hygiene BID/2x per day Strategies/Adaptations/Assistive Equipment: Remind patient: Chew no more than 20 times, then swallow. Offer sips of liquid PRN to encourage oral clearance, reduce unnecessary mastication. Maintain fully upright position at least 30 minutes after meals Pin Inserter Goals: Patient will remain free from aspiration-related illness, malnutrition, and dehydration. MET Short Term Goals: Patient will complete swallows after 20 or less mastication cycles for improved efficiency of PO intake. MET Patient/family will verbalize comprehension of education provided re: dx , strategies to maximize functioning, and role of ST. MET SECURITY ASSISTANT CPT Code: 39683 Clinical Swallowing Evaluation Total time: 15 minutes ([id number])
[2023-10-03 15:31] VITALS: BP 101/68; PULSE 108; RESP 16; TEMP 37; O2SAT 95
--- NOTE | 2023-10-03 16:55 | PTTR_ITS ---
Date of service: 10/03/23 Time of Service: 14:03 PT Notes Visit Reasons: Lactic Acidosis Inpatient Physical Therapy Treatment Note [facility] Date: 10/03/23 PRECAUTIONS: Fall, standard, activity as tolerated. SUBJECTIVE: Patient reports feeling a little stronger today. Speaks with more volume and less apparent effort, engages more easily in conversation. OBJECTIVE: Patient received in the rehab gym, ambulating with daughter. ? PAIN: none reported VITALS: monitored by nursing staff ? BED MOBILITY/TRANSFERS? Rolling L/R: not assessed Supine-sit: not assessed ? Sit-supine: not assessed ? Sit-stand: SBA ? Stand-sit: SBA? Bed-Chair: SBA ? Chair-bed: SBA ? Therapeutic Exercises ([id number]): Direct one-on-one instruction in therapeutic e xercises to develop strength, endurance, range of motion and flexibility. Ambulation ? Assistive Device: fww ? Weight bearing: full Assist: SBA ? Distance:? 100 feet, rest, 75 feet ? Deviation: [] ? Provided skilled instruction in proper exercise performance Provided skilled manual cues to facilitate proper muscle recruitment and/or form. ASSESSMENT:? Patient tolerates therapy well, reports fatigue at close of session, no pain. PLAN: Continue global strengthening per plan of care until patient is medically cleared for discharge. TREATMENT CODE/TIME: 13 minutes beginning at 2:03 and 25 minutes this am with BRAD Stafford for a total of 38 minutes today.
--- NOTE | 2023-10-03 19:15 | PDOC.CMPRO ---
Date of service: 10/03/23 Time of Service: 19:15 Care Management Progress Note Progress Note Text Progress Note Text: S/O: Joselin was sitting up in her chair when CM met with her. She stated that she is feeling better today. Her daughter, Maryan, was in the room and stated that her mother seemed more alert today. Joselin has been working with PT during this admission, who is recommending HH PT. Maryan expressed concern about her sister being able to care for her at home, and asked CM about SNF. Joselin only has [facility], which CM verified will cover short term rehab, but will not cover outpatient services. CM will discuss the option of SNF with Joselin to determine if this aligns with her goals and wishes. CM will continue to follow. A: Claudia is a 73 year old female admitted to [facility] on 09/30/23 with lactic acidosis. P: Anticipate Joselin will return home once medically cleared. She may benefit from new orders for HH RN. Her daughter will drive her home via private vehicle. She will follow up with her PCP and discharge plan of care. CM will continue to follow. SDOH(Care Management) Screening Will the Patient Participate in the Screening?: Yes Do you worry about having a steady place to live?: no In the past 12 months, have you had to go without electric, gas, oil or water in your home?: no Have you or anyone in your house had to go without enough food to eat?: no Has lack of transportation kept you from medical appointments or from doing things needed for daily living?: no Has anyone in your support network made you feel unsafe for any reason?: no
--- NOTE | 2023-10-03 19:28 | PGE_ITS ---
Date of Service Date of service: 10/03/23 Time of Service: 17:50 Assessment and Plan Assessment and plan (1) Pleural effusion, bilateral: Status: Acute Assessment and plan: No obvious PNA on CT. Most likely due to hypoalbuminemia. The echocardiogram does show pulmonary hypertension with RVSP of 41 mmHg. I have initiated midodrine with hopes to be able to start diuresis. Consider thoracenthesis. (2) Septic shock: Status: Suspected Assessment and plan: Blood cx NGTD. Lactic acidosis did not respond to IVF/abx. I think this may be more of a hepatic issue or reflux into the liver in setting of fluid overload. IV fluids had been stopped. Continue empiric antibiotics. Seek ID consultation in the morning. I am not convinced she has a PNA on CT. Encourage pulmonary toilet. BPs stable. Given diarrhea, obtain stool studies. I have also ruled out DVT as cause of fever. (3) CAP (community acquired pneumonia): Status: Suspected Assessment and plan: as above (4) Multiple rib fractures: Status: Acute Assessment and plan: Continue pain control and encourage IS/acapella. (5) Adult failure to thrive: Status: Acute Assessment and plan: BMI of 13.9 kg/m2. Nutrition consulted as is psychiatry: ?eating disorder. She was recommended to be initiated on mirtazapine, which we are starting tonight. The patient has not had age-appropriate cancer screening and should Do so as an outpatient. Her CT chest/abdomen/pelvis did not reveal obvious masses. She does have abnormal LFTs which I am investigating. (6) Unintentional weight loss: Status: Acute Assessment and plan: As above (7) Protein calorie malnutrition: Status: Acute Assessment and plan: As above Supplement thiamine. Being followed by nutrition. (8) Transaminitis: Status: Acute Assessment and plan: Hepatitis studies are negative. US RUQ negative. Consider reflux into the liver from fluid overload and pulmonary hypertension. Consider effects of dietary supplements the patient was taking as outpatient. Await tick panel. Consider GI consult. (9) Hypoalbuminemia: Status: Acute Assessment and plan: Encourage PO intake (10) Lactic acidosis: Status: Acute Assessment and plan: ?truly due to sepsis vs liver disease. As above. Also consider reflux into the liver/congestive hepatopathy. Will trial diuresis tomorrow blood pressure permitting. (11) Normocytic anemia: Status: Acute Assessment and plan: Her ferritin is greater than 2000, ruling out iron deficiency. Her B12 and folate are within normal limits as well. There is no active bleeding. I suspect this has to do with her malnutrition and anemia of chronic disease. (12) Hypomagnesemia: Status: Acute Assessment and plan: Replete (13) Sacral decubitus ulcer, stage II: Status: Acute Assessment and plan: C/s wound care, PT (14) Major depressive disorder: Status: Acute Assessment and plan: Evaluated by psychiatry. Start mirtazapine. (15) DVT prophylaxis: Status: Acute Assessment and plan: SCDs while testing for GI bleeding (16) Discharge planning issues: Status: Acute Assessment and plan: Full code Palliative care consulted. Physical therapy recommends discharge home with home health services. Subjective Subjective Interval history since last seen: Claudia feels a little bit more tired today. She has been afebrile since 3 PM yesterday. She is having diarrhea. She denies cough, shortness of breath, dizziness, chest pain, nausea. We discussed the findings of her echocardiogram, my question as to whether or not the backup of fluid from her pulmonary hypertension could be causing reflux into the liver. We also discussed that I will be reaching out to infectious diseases doctor to discuss possible etiologies of her fever. Exam Narrative Exam Narrative: General: a pleasant cachectic -[place]ian female who is A&Ox3, comfortable in bed, appears tired HEENT: EOMI, MMM Heart: RRR, mildly tachycardic Lungs: diminished breath sounds at L bases Abdomen: soft, nontender, nondistended Extremities: no edema BLEs Objective Last Vital Signs Temp 37.0 C 10/03/23 15:31 Pulse 108 H 10/03/23 15:31 Resp 16 10/03/23 15:31 BP 101/68 10/03/23 15:31 Pulse Ox 95 10/03/23 15:31 Laboratory Results - last 24 hr 10/02/23 10/03/23 10/03/23 06:35 06:18 08:41 WBC 2.36 L RBC 2.82 L Hgb 8.0 L Hct 24.6 L MCV 87 MCH 28.4 MCHC 32.5 RDW 14.8 H Plt Count 127 L MPV 10.1 Immature Gran % See Differential Neutrophils % 57.0 Band Neutrophils % 6 Lymphocytes % 31.0 Monocytes % 6.0 Eosinophils % 2.0 Basophils % 1.0 Nucleated RBC % 1.0 H Absolute Neutrophils 1.49 Absolute Lymphocytes 0.73 L Absolute Monocytes 0.14 Absolute Eosinophils 0.05 Absolute Basophils 0.02 RBC Morphology See Below Polychromasia Present Hypochromasia 2+ Poikilocytosis 2+ Sodium 135 L Potassium 3.8 Chloride 100 Carbon Dioxide 23.1 Anion Gap 11.9 H BUN 12 Creatinine 0.7 Est GFR (CKD-EPI 2020) 91.26 Glucose 108 H Calcium 8.3 L Magnesium 1.7 L Hep Bs Antigen Negative Hep Bs Antibody Negative Hep Bs Antibody, Quant <3.1 Hep B Core Total Ab Negative Hepatitis C Antibody Negative Add-On Test Request DONE Objective Narrative Objective Narrative: US venous BLEs: 1. No evidence of a right lower extremity DVT. 2. No evidence of a left lower extremity DVT. Time Spent with Patient Time Spent with Patient: 35-49 minutes Time was spent: preparing to see the patient(eg.review tests), obtaining and/or reviewing separately otained hiistory, ordering medications,tests, procedures, referring, communicating with other health childbirth and infant care teacher, indepentently interpreting results, counseling the patient and care coordination
[2023-10-03 19:50] VITALS: BP 105/68; PULSE 94; RESP 15; TEMP 37; O2SAT 95
[2023-10-03] MEDS: Midodrine 2.5 MG TAB PO (19:55)
[2023-10-03 23:51] VITALS: BP 103/67; PULSE 96; RESP 15; TEMP 36; O2SAT 96
--- NOTE | 2023-10-04 | DI.CT_ITS ---
Exam(s) CT CHEST WO EXAM: CT CHEST WO CLINICAL HISTORY: follow up pleural effusion. TECHNIQUE: Imaging protocol: Axial computed tomography images were obtained and coronal and sagittal reformatted images were created and reviewed. COMPARISON: CT CT THORACIC LUMBAR SPINE REC from 09/30/[address] CHEST/ABD/PEL WO from 09/30/2023 FINDINGS: Tracheobronchial tree: Patent where visualized. Pulmonary parenchyma: There is a persistent large left pleural effusion with atelectatic changes in t he left lower lobe. Overall the size of the fusion is similar. There is a small to moderate size ri ght pleural effusion which has shown slight interval increase in size. Subjacent infiltrate is seen which may represent atelectasis or pneumonia. No architectural distortion. Mediastinum and [place]: No dominant adenopathy or fluid collection. The esophagus is unremarkable. Thyroid gland: Unremarkable. Pleura: No pneumothorax. Heart: Mild cardiomegaly. No coronary artery calcifications are seen. No definite large pericardial effusion. Evaluation is limited due to patient motion artifact and lack of IV contrast. Aorta: Stable 4 cm ascending thoracic aorta. Atherosclerotic calcification is present. Upper abdomen: There is a stable hyperdense nodule in superior pole of the left kidney which may rep resent a hemorrhagic cyst. Abdominal valuation is limited due to lack of contrast. Lymph nodes: Within normal limits. Soft tissues: Unremarkable. Bones:Within normal limits for the patient's age. There are bilateral rib fractures again noted. Th ey appear of various ages some of which show callus formation suggesting a subacute component. Other show no callus and are more acute. There is a question of a destructive lesion at the left transver se process of T10. In addition there are question of cortical lucencies particularly in the ribs maricarmen aterally. IMPRESSION: 1. Stable large left pleural effusion and slight increase in size of the right pleural effusion since the prior examination. 2. Subjacent basilar infiltrates likely reflecting atelectasis. Pneumonia cannot be excluded. 3. Multiple bilateral rib fractures some of which appears subacute in some which appear acute. 4. Question of a destructive lesion involving the left transverse process of T10 and ribs. Consider metastatic disease or possible multiple myeloma. 5. Findings were discussed with Dr. Tejada at 12:44 p.m. on 10/04/2023. RADIATION DOSE DELIVERED: 317.54mGy.cm Total DLP 317.54mGy.cm Total DLP DATA REPOSITORY: All CT scans at this facility are submitted to the National Radiology Data Registry (NRDR) Dose Index Registry (DIR) with the [employer] (ACR). RADIATION OPTIMIZATION: All CT scans at this facility use at least one of these dose optimization te chniques: automated exposure control; mA and/or kV adjustment per patient size (includes targeted exa ms where dose is matched to clinical indication); or iterative reconstruction.
[2023-10-04] MEDS: Acetaminophen 325 MG TAB PO ×4 (04:20→22:35)
[2023-10-04 04:25] VITALS: BP 109/71; PULSE 70; RESP 15; TEMP 37.1; O2SAT 98
[2023-10-04] MEDS: CEFEPIME 2 GM in Normal Saline 100 ML IVPB (05:50)
[2023-10-04 06:23] LABS: Lactate 5.6 mmol/L (0.6-1.4)
[2023-10-04 06:29] LABS: Absolute Basophil Count 0.01 10^3/uL (0.0-0.2); Absolute Eosinophil Count 0.01 10^3/uL (0.0-0.7); Absolute Lymphocyte Count 0.64 10^3/uL (1.2-3.4); Absolute Monocyte Count 0.07 10^3/uL (0.1-0.8); Absolute Neutrophil Count 1.25 10^3/uL (1.2-6.7); Basophils % 0.5; Eosinophils % 0.5; HCT 24.7 % (36.0-46.0); HGB 8.2 g/dL (11.2-15.7); Immature Grans % 4.8; Lymphocytes % 30.8; MCHC 33.2 % (32.0-36.0); MCV 87 fL (80-95); MPV 10.4 fL (8.0-11.0); Monocytes % 3.4; Nucleated RBC 2.9 % (0.0-0.3); Platelet Count 129 10^3/uL (130-400); RBC 2.83 10^6/uL (3.93-5.22); RDW 14.6 % (11.7-14.6); RDW-SD 43.8 fL; WBC 2.08 10^3/uL (4.4-10.8)
[2023-10-04 06:44] LABS: ALT 17 U/L (14-59); AST 83 U/L (15-37); Albumin 1.7 g/dL (3.4-5.0); Alkaline Phosphatase 116 U/L (46-116); Anion Gap 13.4 mmol/L (3-11); BUN 13 mg/dL (7-18); Bilirubin, Total 0.5 mg/dL (0.2-1.0); CO2 24.6 mmol/L (21.0-32.0); CREATININE 0.8 mg/dL (0.55-1.02); Calcium 8.8 mg/dL (8.5-10.1); Chloride 99 mmol/L (98-107); Estimated GFR 77.75 (mL/min/1.73m2); Glucose 67 mg/dL (74-106); Magnesium 1.6 mg/dL (1.8-2.4); Potassium 3.9 mmol/L (3.5-5.1); Sodium 137 mmol/L (136-145); Total Protein 5.8 g/dL (6.4-8.2)
[2023-10-04 06:55] LABS: Bilirubin, Direct 0.2 mg/dL (0.0-0.2); C-Reactive Protein 20.41 mg/dL (<or=0.5)
[2023-10-04 07:02] LABS: Procalcitonin 0.1 ng/mL
[2023-10-04 08:02] VITALS: BP 125/72; PULSE 95; RESP 16; TEMP 35.7; O2SAT 99
[2023-10-04] MEDS: Furosemide 20 MG TAB PO (08:15)
[2023-10-04] MEDS: Magnesium Chloride 64 MG TABCR PO ×2 (08:16→21:32)
[2023-10-04] MEDS: Midodrine 2.5 MG TAB PO ×3 (08:16→21:33)
[2023-10-04] MEDS: Pantoprazole 40 MG VIAL IVP (08:20)
[2023-10-04] MEDS: Protein Nutritional Supplement 16 GM 1 OUNCE PACKET PO ×3 (08:20→21:34)
[2023-10-04] MEDS: Normal Saline Flush 10 ML SYR IVP ×3 (08:22→21:33)
--- NOTE | 2023-10-04 08:55 | PT.INTREAT ---
PT Notes Visit Reasons: Lactic Acidosis Inpatient Physical Therapy Treatment Note [facility] Date: 10/04/23 PRECAUTIONS: contact SUBJECTIVE: Claudia states that she is not up for a lot this morning. She is waiting for her daughter to arrive so they can have breakfast together. OBJECTIVE: ? PAIN: denies VITALS: ? Pre-Treatment: 107/63 ? Therapeutic Exercises (79953r4): Direct one-on-one instruction in therapeutic exercises to develop strength, endurance, range of motion and flexibility Ambulation ? Assistive Device: FWW. Adjusted height to accommodate patient and allow for improved upright positioning. ? Weight bearing: full Assist: SBA ? Distance:? 6'. Declines further ambulation ? Deviation: cues for equipment management during transfers ? Neuromuscular Re-education (16298l1): Activities that facilitate re-education of movement balance, posture, coordination, and proprioception or kinesthetic sense, requiring skilled tactile and verbal cues ? Exercises/techniques: ? sit-stand 5x, cues for hand placement small MEGHANN standing 3x10 seconds CGA, right lateral sway noted standing hip AB, 10x each, CGA and bilat UE support to FWW. Single episode of left knee buckling, corrected with min A and UE support to FWW seated october, 45 seconds, cues for upright posturing Requests discontinuation of session at this point, reporting fatigue. ASSESSMENT:? Limitations in activity tolerance and balance. Heavy reliance on UE support during standing activities. Encouraged to participate in strengthening and balance retraining, with patient agreeable to short session only. PLAN: Continue PT intervention. Discussed importance of strengthening and balance retraining to improve safety for discharge once medically stable. Agreeable to 2nd session later today. TREATMENT CODE/TIME: [id number] Aisha Mishra, PT, DPT [facility]
[2023-10-04 09:51] LABS: Lab Add On Test DONE
--- NOTE | 2023-10-04 09:56 | TELEFU_ITS ---
Date of service: 10/03/23 Time of Service: 09:56 Nutrition Note NOTE: visited with pt. wt still ~49kg, would like to see upward trend now with order for daily weights to be assessed. Difficult to get information that is consistent with pt. Her daughter is here today - states she's done well with and likes blueberry yogurt, vanilla boost, mashed potato and gravy, carrots. I confirmed that Claudia can alter her textures for less effort required in chewing per ELECTRIC MOTOR REPAIRING SUPERVISOR aminata. Suggested minced meats with gravy as well as other preferred foods that are dense in kcals and protein. Pt and dtr agree 6ft is probably an inadequate height - 70inches more accurate. Pt stated on remeron yesterday 7.5mg for appetite stimulant. total protein and albumin down more, no edema present. will continue to monitor weight, labs, and communicate with pt/family and kitchen about her nutrition needs and continue to send a variety of ONS options to keep menu varied and help po intake. Time Spent in Nutritional Counseling and Treatment: 15 minutes
[2023-10-04] MEDS: THIAMINE 500 MG in Normal Saline 100 ML 200 MG IVPB ×3 (10:01→23:50)
[2023-10-04 10:48] LABS: Lyme Ab w Rflx to Lyme Confirm Negative (Negative)
--- NOTE | 2023-10-04 11:15 | CMPROGNOTE_ITS ---
Date of service: 10/04/23 Time of Service: 11:15 Care Management Progress Note Progress Note Text Progress Note Text: S/O: Joselin was sitting up in her chair when CM met with her. She stated that she is doing well today. CM spoke to PT, who stated that their recommendations are either home with HH or SNF, depending on her progress, as well as the support she will have at home. CM discussed this with Joselin, and she stated that she plans to return to her daughter, Trish's home, and that she is well supported there. She stated that she is not interested in going to a rehab facility, even short term. She asked that CM visit later when her daughter, Maryan is available. CM met with them both later in the day, and again discussed the option of going to a SNF; Joselin maintained that she does not want to go to SNF, but did agree to discuss it with her family over the weekend. CM expressed concern about her MCR benefit, as it may be a financial barrier to obtaining outpatient services. CM sent a referral to [facility] for support with insurance review, as well as intermission coordinator planning. CM will meet with them again on Saturday to revisit the conversation, and will continue to support discharge planning considerations. A: Claudia is a 73 year old female admitted to [facility] on 09/30/23 with lactic acidosis. P: Anticipate Joselin will return home once medically cleared. She may benefit from new orders for HH RN, PT, OT, REIMBURSEMENT REP; although she does not have MCR part B, which may be a financial barrier to services. Her daughter will drive her home via private vehicle. She will follow up with her PCP and discharge plan of care. CM will continue to follow. SDOH(Care Management) Screening Will the Patient Participate in the Screening?: Yes Do you worry about having a steady place to live?: no In the past 12 months, have you had to go without electric, gas, oil or water in your home?: no Have you or anyone in your house had to go without enough food to eat?: no Has lack of transportation kept you from medical appointments or from doing things needed for daily living?: no Has anyone in your support network made you feel unsafe for any reason?: no
[2023-10-04 11:24] VITALS: BP 109/72; PULSE 102; RESP 17; TEMP 37; O2SAT 96
[2023-10-04 12:50] LABS: Lactate 7.3 mmol/L (0.6-1.4)
[2023-10-04 13:02] LABS: Prothrombin Time 10.1 sec (9.1-11.1)
[2023-10-04 13:33] LABS: Lab Add On Test DONE
--- NOTE | 2023-10-04 14:01 | DI.RAD_ITS ---
Exam(s) XR BONE SURVEY EXAM: XR BONE SURVEY CLINICAL HISTORY: lytic lesion T10. TECHNIQUE: 2D digital imaging was performed. COMPARISON: CT CT THORACIC LUMBAR SPINE REC from 09/30/[address] CHEST/ABD/PEL WO from 09/30/2023 FINDINGS: Skull single lateral view: No lytic osseous lesions. No fractures. Cervical spine two views: No lytic nor blastic osseous lesions. Chronic disc space narrowing C5-6 an d C6-7 levels. Anterolisthesis C4 upon C5 related to facet arthropathy. Thoracic spine two views: There is a bidirectional thoracolumbar scoliosis which is convex right in t he thoracic spine and convex left in the lumbar spine. No evidence of compression fracture or listhe sis. No obvious osseous lesions. Lumbosacral spine two views: Scoliosis. Multilevel disc space narrowing L4-5 and L5-S1 levels. Ther e is compression fracture at superior endplate of L2, age indeterminate. Unchanged from 09/30/2023. No posterior cortex retropulsion. Chest x-ray single view: Moderate size left pleural effusion, as seen on recent CT scan and smaller r ight pleural effusion, as also seen on recent CT scan. Ribs: There are acute appearing fractures of the left 5th, 6th , 7th rib, 10th rib and 11th rib. No obvious associated bone lesions at these levels. Best seen on left humerus few. Pelvis/hips AP single view: No fractures nor significant osseous lesions Femurs: No fractures. No significant lesions. Humeri: No fractures. No significant osseous lesions. Glenohumeral joints unremarkable. Clavicle i s unremarkable. IMPRESSION: Multiple left-sided rib fractures as described above, not associated with obvious lesions. These are most probably posttraumatic. Superior endplate L2 compression fracture, not appearing acute. Bilateral pleural effusions, left larger than right, as seen on recent CT scan. No obvious lytic lesions on these images. DATA REPOSITORY: RADIATION DOSE DELIVERED:
--- NOTE | 2023-10-04 14:44 | DI.VRAD_ITS ---
PROCEDURE INFORMATION: Exam: XR Osseous Survey; Complete Axial And Appendicular Skeleton Exam date and time: 10/04/2023 1:14 PM Age: 73 years old Clinical indication: Symptoms: Pain, lytic lesions; Patient HX: T10 lytic lesion. No reported history of malignancy. TECHNIQUE: Imaging protocol: Radiological examination. Complete osseous survey. Axial and appendicular skeleton. COMPARISON: CT CHEST/ABD/PEL WO 09/30/2023 3:32 PM. That report did not describe any suspicious thoracic osseous abnormality. Patient also had CT thoracic spine on 09/30/2023, but that report is not available. FINDINGS: Skull one view: Lateral view of the skull shows no obvious destructive lesion involving the cranium. Cervical spine two views: AP and lateral views of the cervical spine demonstrate chronic degenerative disc disease primarily at the C5-C6 and C6-C7 levels and severe chronic facet arthropathy at the C4-C5 level, the latter associated with approximately 4 mm anterolisthesis of C4 on C5. No obvious destructive lesion detected. Thoracic spine two views: AP and lateral views of the thoracic spine demonstrate thoracolumbar scoliosis, convex to the right in the midthoracic region. No obvious new thoracic compression deformity compared to 09/30/2023 CT scan. Radiographs have lower sensitivity than cross-sectional imaging modalities and a T10 lytic lesion is not apparent on this study. Review of prior CT suggests presence of a left T10 transverse process fracture. Chest one view: A frontal view of the chest demonstrates left larger than right pleural effusions. No obvious destructive lesion identified; multiple bilateral healing rib fractures are present. These fractures are more optimally demonstrated on prior CT exam of 09/30/2023. Lumbar spine two views: Lumbar scoliosis convex to the left is present. No change in appearance of the L2 compression deformity compared to 09/30/2023, age indeterminate. Degenerative disc space narrowing at L4-L5 and at L5-S1. Grade 1 anterolisthesis at L3-L4. No obvious destructive lesions evident on these radiographs. Pelvis one view: An AP view of the pelvis demonstrates no obvious destructive lesion. Right femur one view: AP view of the right femur demonstrates no obvious destructive lesion. Left femur one view: AP view of the left femur demonstrates no obvious destructive lesion. Right humerus one view: AP view of the right humerus demonstrates no obvious destructive lesion. Left humerus one view: A single view of the left humerus demonstrates no obvious destructive lesion. IMPRESSION: 1. No obvious destructive lesions are evident on this exam. However, routine radiographs generally have lower sensitivity for osseous destructive lesions than cross-sectional imaging modality such as CT or MRI. 2. Multiple bilateral healing rib fractures. 3. Mild L2 vertebral compression deformity of undetermined age but stable in appearance compared to 09/30/2023. Dictated and Authenticated by: Edwin Badillo MD. Ordering:ALFREDO Chambers MD
[2023-10-04] MEDS: Lidocaine 5% Patch 1 PATCH TP (14:59)
--- NOTE | 2023-10-04 15:33 | NUR.NOTE ---
Nursing Note: wound patient noted to have a stage II pressure ulcer on on the right side of the sacrum measuring approximately 0.8x.05x0.2, wound bed is dry, no odor noted, no drainage noted, patient reports minimal pain at wound site but dose report pain in surrounding tissue area. Patient education provided on importance of nutrition and wound healing and frequent position changes. Drsg applied after patient showered with mepilex boarder drsg. Patient and daughter verbalized understanding and agreeable to plan of care. Patient would benefit from Kenneth sen and a wound care consult was ordered on 09/30/23 and not yet completed. Charge nurse and artist relationship manager updated.
[2023-10-04 15:36] VITALS: BP 131/93; PULSE 103; RESP 17; TEMP 36.1; O2SAT 95
--- NOTE | 2023-10-04 16:35 | PTTR_ITS ---
PT Notes Visit Reasons: Lactic Acidosis Inpatient Physical Therapy Treatment Note [facility] Date: 10/04/23, 4:36 pm PRECAUTIONS: contact SUBJECTIVE: I'm ready to do a few exercises and some walking OBJECTIVE: ? Sit to stand with v/c for hand placement otherwise indep SLS left x 3 sec right x 2 sec ? PAIN: denies VITALS: ? Pre-Treatment: 107/63 ? Functional Activity([id number]): Ambulation ? Assistive Device: FWW. with v/c ? Weight bearing: full Assist: SBA ? Distance:? 60', 120', 60''. with a 2 min rest period between? Deviation: cues for equipment management during transfers ? Ambulation without AD and CTG 6 steps into walker repeated x5, would like to utilize a SPC next session. Stairs: in PT room, she has 14 stairs with left hand rail at her daughter maribel. Performed up 6 with 2 rail, down 4 with 2 rail, up 4 with left hand rail only and down 6 with both rails all with CTG. Neuromuscular Re-education ([id number]): Activities that facilitate re-education of movement balance, posture, coordination, and proprioception or kinesthetic sense, requiring skilled tactile and verbal cues ? Exercises/techniques: ? sit-stand 8x, cues for hand placement small MEGHANN standing 2x30 seconds CGA no lateral sway noted as in am SLS with CTG 2x 2-3 sec bilateral ASSESSMENT:? Limitations in activity balance. Less reliance on UE support during standing activities than am visit. Good participation, she does fatigue quickly thus recommending do more challenging exercises first. Encourage safty as she is a fall risk. Would recommend gait training with SPC and more balance exercises. PLAN: Continue PT intervention. Discussed importance of strengthening and balance retraining to improve safety for discharge once medically stable. TREATMENT CODE/TIME: 4:36-5:06 pm 30 min Deb Webb,PT [facility]
[2023-10-04] MEDS: AMPICILLIN/SULBACTAM 3 GM in Normal Saline 100 ML IVPB (18:26)
--- NOTE | 2023-10-04 21:16 | PGE_ITS ---
Date of Service Date of service: 10/04/23 Time of Service: 17:00 Assessment and Plan Assessment and plan (1) Septic shock: Status: Suspected Assessment and plan: Pneumonia could not be ruled out in the CT today. She is clinically better, having defervesced. Blood cx NGTD. Lactic acidosis did not respond to IVF/abx. I think this may be more of a hepatic issue or reflux into the liver in setting of fluid overload. IV fluids had been stopped. Change antibiotics to Unasyn. This will cover for the tooth infection as well. Encourage pulmonary toilet. BPs stable. Obtain stool studies if diarrhea returns. I have also ruled out DVT as cause of fever. (2) Pleural effusion, bilateral: Status: Acute Assessment and plan: Most likely due to hypoalbuminemia. The echocardiogram does show pulmonary hypertension with RVSP of 41 mmHg. Continue midodrine and diuresis. The patient had refused thoracentesis today, but I did talk to her about possibly needing it for cancer workup. (3) CAP (community acquired pneumonia): Status: Suspected Assessment and plan: as above (4) Lytic lesion of bone on x-ray: Status: Acute Assessment and plan: Await bone scan. I also ordered SPEP, UPEP, immunofixation. (5) Multiple rib fractures: Status: Acute Assessment and plan: Continue pain control and encourage IS/acapella. (6) Adult failure to thrive: Status: Acute Assessment and plan: BMI of 14.7 kg/m2. Nutrition consulted as is psychiatry: ?eating disorder. Continue mirtazapine. The patient has not had age-appropriate cancer screening and should Do so as an outpatient. We are working up the lytic lesion. Her CT chest/abdomen/pelvis did not reveal obvious masses. She does have abnormal LFTs which I am investigating. (7) Unintentional weight loss: Status: Acute Assessment and plan: As above (8) Protein calorie malnutrition: Status: Acute Assessment and plan: As above Supplement thiamine. Being followed by nutrition. (9) Transaminitis: Status: Acute Assessment and plan: Hepatitis studies are negative. US RUQ negative. Consider reflux into the liver from fluid overload and pulmonary hypertension. Consider effects of dietary supplements the patient was taking as outpatient. The LFTs are getting better, and I wonder if it does not have anything to do with the fact that I started diuretics. Await tick panel. Consider GI consult. (10) Hypoalbuminemia: Status: Acute Assessment and plan: Encourage PO intake (11) Lactic acidosis: Status: Acute Assessment and plan: ?truly due to sepsis vs liver disease. As above. Also consider reflux into the liver/congestive hepatopathy. Continue diuretics and recheck lactic acid in the morning. (12) Normocytic anemia: Status: Acute Assessment and plan: Her ferritin is greater than 2000, ruling out iron deficiency. Her B12 and folate are within normal limits as well. There is no active bleeding. I suspect this has to do with her malnutrition and anemia of chronic disease. (13) Hypomagnesemia: Status: Acute Assessment and plan: Replete (14) Sacral decubitus ulcer, stage II: Status: Acute Assessment and plan: C/s wound care, PT (15) Major depressive disorder: Status: Acute Assessment and plan: Evaluated by psychiatry. Continue mirtazapine. (16) DVT prophylaxis: Status: Acute Assessment and plan: SCDs while testing for GI bleeding (17) Discharge planning issues: Status: Acute Assessment and plan: Full code Palliative care consulted. Physical therapy recommends discharge home with home health services. Subjective Subjective Interval history since last seen: Claudia states that she feels better today. She has been working with physical therapy, including on the stairs. She denies dizziness, chest pain, shortness of breath, back pain, nausea, vomiting. I discussed her case with the general surgeon Dr. Lynn whom I had consulted for a Thoracentesis. The patient was not interested in getting this procedure and wanted to see how much diuretics would do. I discussed her case with Dr. Rothman of radiology, who had noticed lytic lesion in T10 on her CT of the chest today. He recommended a bone scan and a bone survey, both of which were ordered. The bone scan is not going to happen until Saturday. Diarrhea recurred today, but it does not appear like it was tested. She reports that there is a tooth that has been broken off for many years now status post root canal that has been bothering her. Exam Narrative Exam Narrative: General: a pleasant cachectic -Chinese female who is A&Ox3, comfortable in the chair, appears to be feeling better. HEENT: EOMI, MMM, a broken tooth in the right mandible which appears to be decaying. Heart: RRR, mildly tachycardic Lungs: diminished breath sounds at bilateral bases Abdomen: soft, nontender, nondistended Extremities: no edema BLEs Objective Last Vital Signs Temp 36.1 C L 10/04/23 15:36 Pulse 103 H 10/04/23 15:36 Resp 17 10/04/23 15:36 BP 131/93 H 10/04/23 15:36 Pulse Ox 95 10/04/23 15:36 Laboratory Results - last 24 hr 10/03/23 10/04/23 10/04/23 06:18 06:03 09:50 WBC 2.08 L RBC 2.83 L Hgb 8.2 L Hct 24.7 L MCV 87 MCH 29.0 MCHC 33.2 RDW 14.6 Plt Count 129 L MPV 10.4 Immature Gran % 4.8 Neutrophils % 60.0 Lymphocytes % 30.8 Monocytes % 3.4 Eosinophils % 0.5 Basophils % 0.5 Nucleated RBC % 2.9 H Absolute Neutrophils 1.25 Absolute Lymphocytes 0.64 L Absolute Monocytes 0.07 L Absolute Eosinophils 0.01 Absolute Basophils 0.01 PT INR VBG Lactate 5.6 H* Sodium 137 Potassium 3.9 Chloride 99 Carbon Dioxide 24.6 Anion Gap 13.4 H BUN 13 Creatinine 0.8 Est GFR (CKD-EPI 2020) 77.75 Glucose 67 L Calcium 8.8 Magnesium 1.6 L Total Bilirubin 0.5 Conjugated Bilirubin 0.2 AST 83 H ALT 17 Alkaline Phosphatase 116 C-Reactive Protein 20.41 H Total Protein 5.8 L Albumin 1.7 L Procalcitonin 0.1 Lyme Disease Antibody Negative Add-On Test Request DONE 10/04/23 10/04/23 12:43 Unknown WBC RBC Hgb Hct MCV MCH MCHC RDW Plt Count MPV Immature Gran % Neutrophils % Lymphocytes % Monocytes % Eosinophils % Basophils % Nucleated RBC % Absolute Neutrophils Absolute Lymphocytes Absolute Monocytes Absolute Eosinophils Absolute Basophils PT 10.1 INR 1.0 VBG Lactate 7.3 H* Sodium Potassium Chloride Carbon Dioxide Anion Gap BUN Creatinine Est GFR (CKD-EPI 2020) Glucose Calcium Magnesium Total Bilirubin Conjugated Bilirubin AST ALT Alkaline Phosphatase C-Reactive Protein Total Protein Albumin Procalcitonin Lyme Disease Antibody Add-On Test Request DONE Time Spent with Patient Time Spent with Patient: 35-49 minutes Time was spent: preparing to see the patient(eg.review tests), obtaining and/or reviewing separately [facility], ordering medications,tests, procedures, referring, communicating with other health resident care spec, indepentently interpreting results, counseling the patient and care coordination
[2023-10-04] MEDS: Mirtazapine 15 MG TAB 7.5 MG PO (21:33)
[2023-10-04 23:04] VITALS: BP 106/74; PULSE 97; RESP 16; TEMP 36; O2SAT 96
[2023-10-05] MEDS: AMPICILLIN/SULBACTAM 3 GM in Normal Saline 100 ML IVPB ×2 (01:10→06:12)
[2023-10-05 03:12] VITALS: BP 120/82; PULSE 99; RESP 14; TEMP 36.5; O2SAT 94
[2023-10-05 04:00] LABS: C Diff PCR Positive (Negative)
[2023-10-05] MEDS: Normal Saline Flush 10 ML SYR IVP ×4 (06:12→20:54)
[2023-10-05] MEDS: Lidocaine Patch Removal 1 EACH TD ×2 (06:49→21:37)
[2023-10-05] MEDS: Vancomycin 125 MG CAP PO ×4 (06:58→23:58)
[2023-10-05 07:50] LABS: HCT 25.1 % (36.0-46.0); HGB 8.3 g/dL (11.2-15.7); MCH 29.3 pg (27.0-33.0); MCHC 33.1 % (32.0-36.0); MCV 89 fL (80-95); Platelet Count 139 10^3/uL (130-400); RBC 2.83 10^6/uL (3.93-5.22); RDW 15.1 % (11.7-14.6); RDW-SD 45.1 fL; WBC 2.05 10^3/uL (4.4-10.8)
[2023-10-05 07:59] LABS: ALT 18 U/L (14-59); AST 81 U/L (15-37); Albumin 1.8 g/dL (3.4-5.0); Alkaline Phosphatase 121 U/L (46-116); Anion Gap 12.9 mmol/L (3-11); BUN 13 mg/dL (7-18); Bilirubin, Direct 0.2 mg/dL (0.0-0.2); Bilirubin, Total 0.5 mg/dL (0.2-1.0); C-Reactive Protein 19.05 mg/dL (<or=0.5); CO2 26.1 mmol/L (21.0-32.0); CREATININE 0.7 mg/dL (0.55-1.02); Calcium 8.8 mg/dL (8.5-10.1); Chloride 99 mmol/L (98-107); Estimated GFR 91.26 (mL/min/1.73m2); Glucose 69 mg/dL (74-106); Magnesium 1.3 mg/dL (1.8-2.4); Potassium 3.2 mmol/L (3.5-5.1); Sodium 138 mmol/L (136-145)
[2023-10-05 08:11] VITALS: BP 117/77; PULSE 122; RESP 17; TEMP 36.2; O2SAT 94
[2023-10-05 08:14] LABS: Absolute Basophil Count 0.02 10^3/uL (0.0-0.2); Absolute Eosinophil Count 0.02 10^3/uL (0.0-0.7); Absolute Lymphocyte Count 0.33 10^3/uL (1.2-3.4); Absolute Monocyte Count 0.08 10^3/uL (0.1-0.8); Absolute Neutrophil Count 1.52 10^3/uL (1.2-6.7); Bands % 6; Diff Comment Manual Differential; Metamyelocytes % 3; Myelocytes % 1
[2023-10-05 08:15] LABS: Polychromasia Present
[2023-10-05] MEDS: Protein Nutritional Supplement 16 GM 1 OUNCE PACKET PO ×3 (08:36→21:37)
[2023-10-05] MEDS: Magnesium Chloride 64 MG TABCR PO ×2 (08:39→20:53)
[2023-10-05] MEDS: Midodrine 2.5 MG TAB PO ×3 (08:39→20:53)
[2023-10-05] MEDS: Furosemide 20 MG TAB PO (08:40)
[2023-10-05] MEDS: Acetaminophen 325 MG TAB PO ×3 (11:02→20:52)
[2023-10-05] MEDS: Lidocaine 5% Patch 1 PATCH TP (11:02)
[2023-10-05 11:09] VITALS: BP 126/87; PULSE 117; RESP 16; TEMP 36.7; O2SAT 97
[2023-10-05] MEDS: THIAMINE 500 MG in Normal Saline 100 ML 200 MG IVPB ×2 (12:16→15:58)
[2023-10-05] MEDS: MAGNESIUM SULFATE 4 GM/100 ML BAG IVPB (12:59)
[2023-10-05 15:09] VITALS: BP 123/85; PULSE 110; RESP 17; TEMP 36.8; O2SAT 98
[2023-10-05 15:40] LABS: Anaplasma phagocytophilum Negative (Negative); B. miyamotoi PCR Negative (Negative); Babesia divergens/MO-1 Negative (Negative); Babesia duncani Negative (Negative); Babesia microti Negative (Negative); Ehrlichia chaffeensis Negative (Negative); Ehrlichia ewingii/canis Negative (Negative); Ehrlichia muris eauclairensis Negative (Negative)
--- NOTE | 2023-10-05 16:10 | PT.INTREAT ---
Date of service: 10/05/23 Time of Service: 14:00 PT Notes Visit Reasons: Lactic Acidosis Inpatient Physical Therapy Treatment Note [facility] Date: 10/05/2023 PRECAUTIONS:Fall, standard, contact, activity as tolerated SUBJECTIVE: Stated she feels she is getting weaker since coming to rehab facility. Daughter, Gavi, reminded her she is in the hospital not rehab. OBJECTIVE: ? PAIN: No complaints offered. Therapeutic Activities (78700c3): Direct one-on-one instruction in dynamic activities to improve functional performance. ? BED MOBILITY/TRANSFERS? Up in chair when I arrived ? Sit-stand: SBA, needs cueing for reaching back to push herself up into standing. Likes to pull on walker. ? Stand-sit: SBA, cueing for reaching back for chair to avoid chair moving ? Provided skilled cues and instruction on performance and technique throughout. GAIT? Assistive Device: Attempted use of a IV pole but this was found to be too unstable. Utilized FWW?instead and this was much more comfortable for Joselin. ? Weight bearing: full Assist: CGA? and assist with moving IV pole ? Distance:? 20ft x 3 within room due to contact precautions, with seated rest / seated exercises in between ? Deviation: ?Slow pace, small MEGHANN, controlled movement pattern ? STAIRS: Held for today. ? Exercises: Performed LAQs 10 reps x 2 sets, TR/ HR in sitting 10 reps x 2 sets each, manually resisted seated hip abductio 10 reps x 2 sets, seated hip flexio 10 reps x 2 sets and sit to stand x 10 reps with use of UEs. ? Provided skilled instruction in proper exercise performance Provided skilled manual cues to facilitate proper muscle recruitment and/or form ASSESSMENT:? Tolerated exercises and ambulation fair, but did appear fatigued today. PLAN: Continue to focus on improved mobility for ADL function. Advance as able to tolerate. TREATMENT CODE/TIME: [id number], 2:00 to 2:25 (25')
--- NOTE | 2023-10-05 18:57 | PGE_ITS ---
Date of Service Date of service: 10/05/23 Time of Service: 18:57 Assessment and Plan Assessment and plan (1) C. difficile diarrhea: Status: Acute Assessment and plan: Continue p.o. vancomycin. Prior to the patient's discharge, we will need to verify insurance coverage for this. She is also written for probiotics. We have DC'd her PPI. (2) Septic shock: Status: Suspected Assessment and plan: Finished antibiotics for pneumonia. She does now have C. difficile, but I do not believe that this is a condition that the patient had on presentation. Blood cx NGTD. Lactic acidosis did not respond to IVF/abx. I think this may be more of a hepatic issue or reflux into the liver in setting of fluid overload. IV fluids had been stopped and antibiotics discontinued.. Encourage pulmonary toilet. BPs stable. I have also ruled out DVT as cause of fever. (3) Pleural effusion, bilateral: Status: Acute Assessment and plan: Most likely due to hypoalbuminemia. The echocardiogram does show pulmonary hypertension with RVSP of 41 mmHg. Continue midodrine and diuresis. The patient had refused thoracentesis again today. (4) CAP (community acquired pneumonia): Status: Suspected Assessment and plan: as above (5) Lytic lesion of bone on x-ray: Status: Acute Assessment and plan: Await bone scan. I also ordered SPEP, UPEP, immunofixation. (6) Multiple rib fractures: Status: Acute Assessment and plan: Continue pain control and encourage IS/acapella. (7) Adult failure to thrive: Status: Acute Assessment and plan: BMI of 14.7 kg/m2. Nutrition consulted as is psychiatry: ?eating disorder. Continue mirtazapine. The patient has not had age-appropriate cancer screening and should Do so as an outpatient. We are working up the lytic lesion. Her CT chest/abdomen/pelvis did not reveal obvious masses. She does have abnormal LFTs which I am investigating and suspect are due to pulmonary hypertension and reflux into the liver. (8) Unintentional weight loss: Status: Acute Assessment and plan: As above (9) Protein calorie malnutrition: Status: Acute Assessment and plan: As above Supplement thiamine. Being followed by nutrition. (10) Transaminitis: Status: Acute Assessment and plan: Hepatitis studies are negative. US RUQ negative. Consider reflux into the liver from fluid overload and pulmonary hypertension. Lactic acidosis has actually improved with diuresis. Consider effects of dietary supplements the patient was taking as outpatient. The LFTs are getting better, and I wonder if it does not have anything to do with the fact that I started diuretics. Lyme antibody is negative. await tick panel. Consider GI consult. (11) Hypoalbuminemia: Status: Acute Assessment and plan: Encourage PO intake (12) Lactic acidosis: Status: Acute Assessment and plan: ?truly due to sepsis vs liver disease. As above. This has started to improve with diuresis, suggesting that the etiology for this could be reflux into the liver/congestive hepatopathy. Continue diuretics and recheck lactic acid in the morning. (13) Normocytic anemia: Status: Acute Assessment and plan: Her ferritin is greater than 2000, ruling out iron deficiency. Her B12 and folate are within normal limits as well. There is no active bleeding. I suspect this has to do with her malnutrition and anemia of chronic disease. (14) Hypomagnesemia: Status: Acute Assessment and plan: Replete (15) Sacral decubitus ulcer, stage II: Status: Acute Assessment and plan: C/s wound care, PT (16) Major depressive disorder: Status: Acute Assessment and plan: Evaluated by psychiatry. Continue mirtazapine. (17) DVT prophylaxis: Status: Acute Assessment and plan: SCDs while testing for GI bleeding (18) Discharge planning issues: Status: Acute Assessment and plan: Full code Palliative care consulted. Physical therapy recommends discharge home with home health services. However, the patient's daughter today indicated to me that they were interested in pursuing subacute rehab reviewing the case management note, it appears that the planned disposition was for the patient to go home with home health services (nursing, PT, OT, [employer]). I will ask the case management to touch base with the patient and family in the morning. Anticipate discharge home after her bone scan on Saturday. Will need to verify the coverage for her oral vancomycin prior to her discharge. Subjective Subjective Interval history since last seen: The patient states that her diarrhea has stopped after about 10 AM today. She said it went on all day yesterday. She denies having diarrhea at home, this started at the hospital. She denies dizziness, chest pain, shortness of breath, nausea, vomiting. Her abdomen does not hurt. She does feel weak when she is ambulating. She did test positive for C. difficile. Exam Narrative Exam Narrative: General: a pleasant cachectic -Tristanian female who is A&Ox3, comfortable in the chair, appears to be feeling better. HEENT: EOMI, MMM Heart: RRR, mildly tachycardic Lungs: diminished breath sounds at bilateral bases Abdomen: soft, nontender, nondistended Extremities: no edema BLEs Objective Last Vital Signs Temp 36.8 C 10/05/23 15:09 Pulse 110 H 10/05/23 15:09 Resp 17 10/05/23 15:09 BP 123/85 10/05/23 15:09 Pulse Ox 98 10/05/23 15:09 Laboratory Results - last 24 hr 10/05/23 10/05/23 10/05/23 03:10 07:30 07:30 WBC 2.05 L RBC 2.83 L Hgb 8.3 L Hct 25.1 L MCV 89 MCH 29.3 MCHC 33.1 RDW 15.1 H Plt Count 139 MPV 10.0 Immature Gran % 0.0 Neutrophils % 68.0 Band Neutrophils % 6 Lymphocytes % 16.0 Monocytes % 4.0 Eosinophils % 1.0 Basophils % 1.0 Metamyelocytes % 3 Myelocytes % 1 Nucleated RBC % 3.0 H Absolute Neutrophils 1.52 Absolute Lymphocytes 0.33 L Absolute Monocytes 0.08 L Absolute Eosinophils 0.02 Absolute Basophils 0.02 RBC Morphology See Below Polychromasia Present VBG Lactate 5.0 H* Sodium 138 Potassium 3.2 L Chloride 99 Carbon Dioxide 26.1 Anion Gap 12.9 H BUN 13 Creatinine 0.7 Est GFR (CKD-EPI 2020) 91.26 Glucose 69 L Calcium 8.8 Magnesium 1.3 L Total Bilirubin 0.5 Cancelled Conjugated Bilirubin 0.2 AST ALT Alkaline Phosphatase C-Reactive Protein Total Protein Albumin Stl C.difficile Tox PCR Positive A 10/05/23 10/05/23 10/05/23 07:30 07:30 07:30 WBC RBC Hgb Hct MCV MCH MCHC RDW Plt Count MPV Immature Gran % Neutrophils % Band Neutrophils % Lymphocytes % Monocytes % Eosinophils % Basophils % Metamyelocytes % Myelocytes % Nucleated RBC % Absolute Neutrophils Absolute Lymphocytes Absolute Monocytes Absolute Eosinophils Absolute Basophils RBC Morphology Polychromasia VBG Lactate Sodium Potassium Chloride Carbon Dioxide Anion Gap BUN Creatinine Est GFR (CKD-EPI 2020) Glucose Calcium Magnesium Total Bilirubin Conjugated Bilirubin Cancelled AST 81 H Cancelled ALT 18 Cancelled Alkaline Phosphatase 121 H C-Reactive Protein Total Protein Albumin Stl C.difficile Tox PCR 10/05/23 10/05/23 10/05/23 07:30 07:30 07:30 WBC RBC Hgb Hct MCV MCH MCHC RDW Plt Count MPV Immature Gran % Neutrophils % Band Neutrophils % Lymphocytes % Monocytes % Eosinophils % Basophils % Metamyelocytes % Myelocytes % Nucleated RBC % Absolute Neutrophils Absolute Lymphocytes Absolute Monocytes Absolute Eosinophils Absolute Basophils RBC Morphology Polychromasia VBG Lactate Sodium Potassium Chloride Carbon Dioxide Anion Gap BUN Creatinine Est GFR (CKD-EPI 2020) Glucose Calcium Magnesium Total Bilirubin Conjugated Bilirubin AST ALT Alkaline Phosphatase Cancelled C-Reactive Protein 19.05 H Total Protein 6.0 L Cancelled Albumin 1.8 L Cancelled Stl C.difficile Tox PCR Time Spent with Patient Time Spent with Patient: 25-34 minutes Time was spent: preparing to see the patient(eg.review tests), obtaining and/or reviewing separately otained hiistory, ordering medications,tests, procedures, referring, communicating with other health complex care nurse practitioner, indepentently interpreting results, counseling the patient and care coordination
[2023-10-05 20:10] VITALS: BP 121/78; PULSE 99; RESP 17; TEMP 36.8; O2SAT 93
[2023-10-05] MEDS: Potassium Chloride 20 MEQ TABCR 40 MEQ PO (20:53)
[2023-10-05] MEDS: Mirtazapine 15 MG TAB 7.5 MG PO (20:53)
[2023-10-05 22:48] VITALS: BP 126/78; PULSE 107; RESP 17; TEMP 36; O2SAT 97
[2023-10-06 00:06] LABS: Free Retinol (Vitamin A) 13.9 mcg/dL (32.5-78.0)
[2023-10-06] MEDS: Acetaminophen 325 MG TAB PO ×3 (04:22→21:15)
[2023-10-06] MEDS: Vancomycin 125 MG CAP PO ×3 (05:48→19:21)
[2023-10-06] MEDS: Loperamide 2 MG CAP PO ×3 (05:48→21:38)
[2023-10-06 06:03] LABS: Lactate 5.6 mmol/L (0.6-1.4)
[2023-10-06 06:13] LABS: HCT 24.1 % (36.0-46.0); HGB 7.9 g/dL (11.2-15.7); MCH 28.9 pg (27.0-33.0); MCHC 32.8 % (32.0-36.0); MCV 88 fL (80-95); MPV 9.9 fL (8.0-11.0); Platelet Count 134 10^3/uL (130-400); RBC 2.73 10^6/uL (3.93-5.22); RDW 15.4 % (11.7-14.6); RDW-SD 46.3 fL; WBC 2.33 10^3/uL (4.4-10.8)
[2023-10-06 06:32] LABS: Anion Gap 12.8 mmol/L (3-11); BUN 13 mg/dL (7-18); CO2 25.2 mmol/L (21.0-32.0); CREATININE 0.7 mg/dL (0.55-1.02); Calcium 8.9 mg/dL (8.5-10.1); Chloride 100 mmol/L (98-107); Estimated GFR 91.26 (mL/min/1.73m2); Glucose 70 mg/dL (74-106); Magnesium 1.7 mg/dL (1.8-2.4); Potassium 3.7 mmol/L (3.5-5.1); Sodium 138 mmol/L (136-145)
[2023-10-06 06:47] LABS: Absolute Lymphocyte Count 0.51 10^3/uL (1.2-3.4); Absolute Neutrophil Count 1.75 10^3/uL (1.2-6.7); Bands % 6
[2023-10-06 06:48] LABS: Absolute Eosinophil Count 0.02 10^3/uL (0.0-0.7); Absolute Monocyte Count 0.02 10^3/uL (0.1-0.8); Diff Comment Manual Differential; Metamyelocytes % 1; Polychromasia Present
[2023-10-06] MEDS: Furosemide 20 MG TAB PO (07:45)
[2023-10-06] MEDS: Magnesium Chloride 64 MG TABCR PO ×2 (07:45→21:03)
[2023-10-06] MEDS: Potassium Chloride 20 MEQ TABCR 40 MEQ PO ×2 (07:45→21:03)
[2023-10-06] MEDS: Lidocaine 5% Patch 1 PATCH TP ×2 (07:58→14:12)
[2023-10-06] MEDS: MAGNESIUM SULFATE 2 GM/50 ML BAG IVPB (07:59)
[2023-10-06] MEDS: Midodrine 2.5 MG TAB PO ×3 (08:08→21:03)
[2023-10-06 08:10] VITALS: BP 117/69; PULSE 107; RESP 18; TEMP 35.2; O2SAT 98
[2023-10-06] MEDS: Normal Saline Flush 10 ML SYR IVP ×2 (08:16→21:04)
[2023-10-06] MEDS: Protein Nutritional Supplement 16 GM 1 OUNCE PACKET PO ×3 (08:55→21:02)
--- NOTE | 2023-10-06 12:57 | PDOC.CMPRO ---
Date of service: 10/06/23 Time of Service: 12:58 Care Management Progress Note Progress Note Text Progress Note Text: CM met with Claudia and daughter, Trish at MD request to review SNF options. CM provided review of local facilities and [facility] facilities. Trish shared that Claudia's is at [facility], though did not share preference for the facility. Claudia and Trish deferred to Maryan, who will call CM to review. Claudia verbalized understanding of 20 day rehab only; per payer limitations. She is C-diff positive which will be communicated to facilities during referral process, as well. SDOH(Care Management) Screening Will the Patient Participate in the Screening?: Yes Do you worry about having a steady place to live?: no In the past 12 months, have you had to go without electric, gas, oil or water in your home?: no Have you or anyone in your house had to go without enough food to eat?: no Has lack of transportation kept you from medical appointments or from doing things needed for daily living?: no Has anyone in your support network made you feel unsafe for any reason?: no
--- NOTE | 2023-10-06 14:04 | PT.INTREAT ---
Date of service: 10/06/23 Time of Service: 09:05 PT Notes Visit Reasons: Lactic Acidosis Inpatient Physical Therapy Treatment Note [facility] Date: 10/06/2023 PRECAUTIONS: Fall, standard, contact, activity as tolerated SUBJECTIVE: Frustrated that she gets tired so quickly. OBJECTIVE: ? PAIN: No complaints offered. Therapeutic Activities (84907g6): Direct one-on-one instruction in dynamic activities to improve functional performance. ? BED MOBILITY/TRANSFERS? Up in chair when I arrived ? Sit-stand: SBA, needs cueing for reaching back to push herself up into standing. ? Stand-sit: SBA, cueing for reaching back for chair to avoid chair moving ? Provided skilled cues and instruction on performance and technique throughout. GAIT? Assistive Device: FWW ? Weight bearing: full Assist: SBA-CGA? and assist with moving IV pole ? Distance:? 20ft x 3 within room due to contact precautions, with seated rest / seated exercises in between ? Deviation: ?Slow pace, small MEGHANN, controlled movement pattern ? STAIRS: Able to add stepping up and down 8 inch step x 4 while walking within room today. Utilized left hand on walker to simulate left hand railing. Did require CGA with this due to legs being weak, but no LOB noted.? Exercises: Performed LAQs 10 reps x 2 sets, TR/ HR in sitting 10 reps x 2 sets each, manually resisted seated hip abductio 10 reps x 2 sets, seated hip flexion 10 reps x 2 sets and sit to stand x 5 reps with assist of UEs. ? Provided skilled instruction in proper exercise performance Provided skilled manual cues to facilitate proper muscle recruitment and/or form ASSESSMENT:? Tolerated exercises and ambulation fair, but did appear fatigued today. PLAN: Continue to focus on improved mobility for ADL function. Advance as able to tolerate. TREATMENT CODE/TIME: [id number], 9:05 to 9:45 (40')
[2023-10-06 15:21] VITALS: BP 127/84; PULSE 113; RESP 19; TEMP 36.6; O2SAT 96
--- NOTE | 2023-10-06 17:08 | PGE_ITS ---
Date of Service Date of service: 10/06/23 Time of Service: 17:08 Assessment and Plan Assessment and plan (1) C. difficile diarrhea: Status: Acute Assessment and plan: Continue p.o. vancomycin. Prior to the patient's discharge, we will need to verify insurance coverage for this. She is also written for probiotics. We have DC'd her PPI. (2) Septic shock: Status: Suspected Assessment and plan: Finished antibiotics for pneumonia. She does now have C. difficile, but I do not believe that this is a condition that the patient had on presentation. Blood cx NGTD. Lactic acidosis did not respond to IVF/abx. I think this may be more of a hepatic issue or reflux into the liver in setting of fluid overload. IV fluids had been stopped and antibiotics discontinued.. Encourage pulmonary toilet. BPs stable. I have also ruled out DVT as cause of fever. (3) Sinus tachycardia: Status: Acute Assessment and plan: I do not think this is related to the patient's infection. Will trial beta blockers and monitor on tele. (4) Pleural effusion, bilateral: Status: Acute Assessment and plan: Most likely due to hypoalbuminemia. The echocardiogram does show pulmonary hypertension with RVSP of 41 mmHg. Continue midodrine and diuresis. The patient had refused thoracentesis twice on this admission. (5) CAP (community acquired pneumonia): Status: Suspected Assessment and plan: as above (6) Lytic lesion of bone on x-ray: Status: Acute Assessment and plan: Await bone scan. I also ordered SPEP, UPEP, immunofixation. (7) Multiple rib fractures: Status: Acute Assessment and plan: Continue pain control and encourage IS/acapella. (8) Adult failure to thrive: Status: Acute Assessment and plan: BMI of 14.7 kg/m2. Nutrition consulted as is psychiatry: ?eating disorder. Psychiatry feels the patient has depression. Continue mirtazapine. The patient has not had age-appropriate cancer screening and should Do so as an outpatient. We are working up the lytic lesion. Her CT chest/abdomen/pelvis did not reveal obvious masses. She does have abnormal LFTs which I am investigating and suspect are due to pulmonary hypertension and reflux into the liver. (9) Unintentional weight loss: Status: Acute Assessment and plan: As above (10) Protein calorie malnutrition: Status: Acute Assessment and plan: As above Supplement thiamine. Being followed by nutrition. (11) Transaminitis: Status: Acute Assessment and plan: Hepatitis studies are negative. US RUQ negative. Consider reflux into the liver from fluid overload and pulmonary hypertension. Lactic acidosis has actually improved with diuresis. Consider effects of dietary supplements the patient was taking as outpatient. The LFTs are getting better, and I wonder if it does not have anything to do with the fact that I started diuretics. Lyme antibody is negative. await tick panel. Consider GI consult. (12) Hypoalbuminemia: Status: Acute Assessment and plan: Encourage PO intake (13) Lactic acidosis: Status: Acute Assessment and plan: ?truly due to sepsis vs liver disease. As above. This has started to improve with diuresis, suggesting that the etiology for this could be reflux into the liver/congestive hepatopathy. Continue diuretics and recheck lactic acid in the morning. (14) Normocytic anemia: Status: Acute Assessment and plan: Her ferritin is greater than 2000, ruling out iron deficiency. Her B12 and folate are within normal limits as well. There is no active bleeding. I suspect this has to do with her malnutrition and anemia of chronic disease. (15) Hypomagnesemia: Status: Acute Assessment and plan: Replete (16) Sacral decubitus ulcer, stage II: Status: Acute Assessment and plan: C/s wound care, PT (17) Major depressive disorder: Status: Acute Assessment and plan: Evaluated by psychiatry. Continue mirtazapine. (18) DVT prophylaxis: Status: Acute Assessment and plan: SCDs while testing for GI bleeding I do not see any documentation of hematests, so I am ordering it again. (19) Discharge planning issues: Status: Acute Assessment and plan: Full code Palliative care consulted. Plan is for discharge to SNF. Subjective Subjective Interval history since last seen: No diarrhea since this am when she got loperamide. She did have 3 liquid BMs overnight and one this morning. Loperamide helps. She has not been eating because she is afraid it will cause more diarrhea. We discussed how it's important that she eats and, if diarrhea recurs, we can treat it. She denies dizziness, CP, SOB, n/v. She does still feel a little weak. She wants to go to a SNF, which has been communicated to the care managers. Exam Narrative Exam Narrative: General: a pleasant cachectic -[place] female who is A&Ox3, comfortable in the chair HEENT: EOMI, MMM Heart: RRR, mildly tachycardic Lungs: diminished breath sounds at bilateral bases Abdomen: soft, nontender, nondistended Extremities: no edema BLEs Objective Last Vital Signs Temp 36.6 C 10/06/23 15:21 Pulse 113 H 10/06/23 15:21 Resp 19 10/06/23 15:21 BP 127/84 10/06/23 15:21 Pulse Ox 96 10/06/23 15:21 Laboratory Results - last 24 hr 10/06/23 05:42 WBC 2.33 L RBC 2.73 L Hgb 7.9 L Hct 24.1 L MCV 88 MCH 28.9 MCHC 32.8 RDW 15.4 H Plt Count 134 MPV 9.9 Immature Gran % 0.0 Neutrophils % 69.0 Band Neutrophils % 6 Lymphocytes % 22.0 Monocytes % 1.0 Eosinophils % 1.0 Basophils % 0.0 Metamyelocytes % 1 Nucleated RBC % 6.0 H Absolute Neutrophils 1.75 Absolute Lymphocytes 0.51 L Absolute Monocytes 0.02 L Absolute Eosinophils 0.02 Absolute Basophils 0.00 RBC Morphology See Below Polychromasia Present VBG Lactate 5.6 H* Sodium 138 Potassium 3.7 Chloride 100 Carbon Dioxide 25.2 Anion Gap 12.8 H BUN 13 Creatinine 0.7 Est GFR (CKD-EPI 2020) 91.26 Glucose 70 L Calcium 8.9 Magnesium 1.7 L Time Spent with Patient Time Spent with Patient: 35-49 minutes Time was spent: preparing to see the patient(eg.review tests), obtaining and/or reviewing separately otained hiistory, ordering medications,tests, procedures, referring, communicating with other health home care physical therapist, indepentently interpreting results, counseling the patient and care coordination
[2023-10-06 19:17] VITALS: BP 127/80; PULSE 119; RESP 19; TEMP 36.3; O2SAT 96
[2023-10-06 19:52] LABS: Campylobacter PCR Negative (Negative); Salmonella PCR Negative (Negative); Shiga Toxin PCR Negative (Negative); Shigella/Enteroinvasive Ecoli Negative (Negative)
[2023-10-06] MEDS: Metoprolol 12.5 MG TAB PO (21:03)
[2023-10-06] MEDS: Mirtazapine 15 MG TAB 7.5 MG PO (21:03)
[2023-10-06] MEDS: Lidocaine Patch Removal 1 EACH TD (22:14)
[2023-10-06 23:35] VITALS: BP 116/79; PULSE 87; RESP 19; TEMP 36.1; O2SAT 96
--- NOTE | 2023-10-07 | DI.NM_ITS ---
Exam(s) NM BONE SCAN WHOLE BODY GRP EXAM: NM BONE SCAN WHOLE BODY GRP CLINICAL HISTORY: lytic lesion T10. TECHNIQUE: Injected Dose: 29.5 mCi Tc-99m MDP Delayed Images: 2-3 hours. COMPARISON: CT CT CHEST/ABD/PEL WO from 09/30/[address] HEAD WO from 09/30/[address] THORACIC LUMBAR SPINE REC from 09/30/[address] CHEST WO from 10/04/2023 FINDINGS: Exam was performed into show sessions due to patient pain. AP and PA views only were performed. There are numerous abnormal foci of labeling noted in the bilateral ribs, greater anteriorly. Some o f these correspond to fractures seen on CT however there are numerous lesions metastatic disease shou ld be considered. An abnormal area of leaving is noted in the sternum, consistent with fracture. Th ere is increased activity in the face of the, consistent with sinus disease noted on CT. Small foci are noted in the lower cervical spine. No definite abnormal thoracic spine or lumbar spine labeling is seen. scoliosis is noted. the labeling of the appendicular skeleton appears normal. Bilateral renal excretion is identified. IMPRESSION: Limited exam. Multiple abnormal on foci of increased activity in the bilateral ribs, some of which c orrespond to previously identified fractures. Metastatic disease not excluded. Increased activity i n face consistent with sinus disease DATA REPOSITORY:
[2023-10-07] MEDS: Vancomycin 125 MG CAP PO ×5 (00:06→23:28)
[2023-10-07] MEDS: Acetaminophen 325 MG TAB PO ×2 (02:04→10:37)
[2023-10-07 03:36] VITALS: BP 109/73; PULSE 104; RESP 18; TEMP 36.9; O2SAT 94
[2023-10-07 08:16] VITALS: BP 106/70; PULSE 109; RESP 18; TEMP 36.9; O2SAT 97
[2023-10-07] MEDS: Normal Saline Flush 10 ML SYR IVP ×2 (08:32→21:38)
[2023-10-07] MEDS: Midodrine 2.5 MG TAB PO ×3 (08:33→21:37)
[2023-10-07] MEDS: Magnesium Chloride 64 MG TABCR PO ×2 (08:33→21:37)
[2023-10-07] MEDS: Protein Nutritional Supplement 16 GM 1 OUNCE PACKET PO ×2 (08:33→14:17)
[2023-10-07] MEDS: Furosemide 20 MG TAB PO (08:34)
[2023-10-07] MEDS: Metoprolol 12.5 MG TAB PO ×3 (08:34→23:28)
--- NOTE | 2023-10-07 09:44 | PT.INTREAT ---
Date of service: 10/07/23 Time of Service: 09:14 PT Notes Visit Reasons: Lactic Acidosis Inpatient Physical Therapy Treatment Note [facility] Date: 10/07/23 PRECAUTIONS: Fall, ENTERIC CONTACT, activity as tolerated. SUBJECTIVE: Patient reports back is hurting, having trouble getting motivated this morning. OBJECTIVE: Sitting in bedside recliner with feet elevated, ANGELINE alarm in place. Agreeable to therapy ? PAIN: yes in the low back and ribs, number not assigned. VITALS: continuously monitored by nursing staff via telemetry ? BED MOBILITY/TRANSFERS? Rolling L/R: not assessed Supine-sit: not assessed ? Sit-supine: not assessed ? Sit-stand: SBA ? Stand-sit: SBA ? Bed-Chair: SBA ? Chair-bed: SBA ? Therapeutic Exercises ([id number]): Direct one-on-one instruction in therapeutic exercises to develop strength, endurance, range of motion and flexibility. Ambulation ? Assistive Device: FWW ? Weight bearing: full Assist: SBA? Distance:? 50 feet, seated rest x3? Deviation: slightly stooped posture and hinged forward at hips, good step height, lacking heel strike and toe off. STAIRS: Patient ascends and descends 2 six inch stairs with CGA and bilateral AD (step has not railings.) ? Provided skilled instruction in proper exercise performance Provided skilled manual cues to facilitate proper muscle recruitment and/or form. ASSESSMENT:? Patient tolerates therapy well, reports some fatigue at close of session. PLAN: Continue global strengthening per plan of care until patient is medically cleared for discharge. TREATMENT CODE/TIME: 28 minutes beginning at 9:14
[2023-10-07] MEDS: Lidocaine 5% Patch 1 PATCH TP (11:33)
[2023-10-07 11:38] VITALS: BP 122/80; PULSE 113; RESP 18; TEMP 36.6; O2SAT 98
[2023-10-07 11:45] LABS: Lambda Free Light Chain 1.79 mg/dL (0.57-2.63)
[2023-10-07] MEDS: Calcitonin-Salmon, Synthetic 3.7 ML BTL NS (12:01)
[2023-10-07] MEDS: traMADol 50 MG TAB PO (12:46)
[2023-10-07] MEDS: HYDROmorphone 2 MG/ML SYR 1 MG IVP (14:16)
--- NOTE | 2023-10-07 14:22 | PT.INTREAT ---
PT Notes Visit Reasons: Lactic Acidosis Inpatient Physical Therapy Treatment Note [facility] Date: 10/07/23 PRECAUTIONS: enteric SUBJECTIVE: Claudia states that she is extremely tired and her back is bothering her. OBJECTIVE: ? BED MOBILITY/TRANSFERS? Rolling L/R: not assessed Supine-sit: not assessed? Sit-supine: not assessed? Sit-stand: SBA? Stand-sit: SBA ? Bed-Chair: SBA with FWW, cues for safety ? Chair-bed: SBA with FWW, cues for safety ? Therapeutic Exercises ([id number]): Direct one-on-one instruction in therapeutic exercises to develop strength, endurance, range of motion and flexibility. ? Exercises ? ankle pumps 10x instructed in SLR, with patient completing single rep prior to accepting phone call and requesting discontinuation of PT session standing hip AB, 5x each, CGA and bilat UE support to FWW SBOS standing, bilat UE support and CGA, 15 seconds. Declines performance with reduced UE support Ambulation ? Assistive Device: FWW? Weight bearing: as tolerated Assist: CGA ? Distance:? 25' ? Deviation: cues for equipment management ? ASSESSMENT:? Limited participation today due to fatigue. Significant functional weakness of LEs, requiring UE support for all functional mobility. PLAN: Continue PT intervention to maximize safety and activity tolerance. TREATMENT CODE/TIME: [id number] ([id number]) Aisha Mishra, PT, DPT [facility]
--- NOTE | 2023-10-07 15:29 | CMPROGNOTE_ITS ---
Date of service: 10/07/23 Time of Service: 15:29 Care Management Progress Note Progress Note Text Progress Note Text: S/O: Joselin was out of the room, having a bone scan when CM attempted to meet with her. Her daughter, Trish, was in the room, and CM met with her to discuss discharge planning considerations. Referrals were sent to [facility], as well as [facility] with a preference listed for facilities near [place] ([facility]), as well as facilities near [place], [place]. Joselin received a bed offer at [facility], once her stools are manageable. Per RN, she continues to have liquid stools after meals; per MD, she is not yet medically cleared for discharge. CM cont acted COA to inquire about the referral sent late last week; COA will be in contact with [facility] tomorrow to discuss insurance options and resources. CM will continue to follow. A: Claudia is a 73 year old female admitted to [facility] on 09/30/23 with lactic acidosis. P: Anticipate Joselin will go to SNF for short term rehab prior to returning home. Referrals were sent to [facility] facilities as well as [facility]; a bed offer was made at [facility]. She will transport via private vehicle by family, if able. She will follow up with her PCP and discharge plan of care. CM will continue to follow. SDOH(Care Management) Screening Will the Patient Participate in the Screening?: Yes Do you worry about having a steady place to live?: no In the past 12 months, have you had to go without electric, gas, oil or water in your home?: no Have you or anyone in your house had to go without enough food to eat?: no Has lack of transportation kept you from medical appointments or from doing things needed for daily living?: no Has anyone in your support network made you feel unsafe for any reason?: no
--- NOTE | 2023-10-07 16:28 | PGE_ITS ---
Date of Service Date of service: 10/07/23 Time of Service: 16:29 Assessment and Plan Assessment and plan (1) C. difficile diarrhea: Status: Acute Assessment and plan: Continue 14-day course of oral vancomycin along with probiotic, added Metamucil to try to thicken her stools. Still having too much liquid stools with each meal and needs continued hospitalization. (2) Sinus tachycardia: Status: Acute Assessment and plan: I do not think this is related to the patient's infection. Will trial beta blockers and monitor on tele. Remains tachycardic sinus in the 120's. metoprolol dose adjusted. unclear etiology, possibly pain related. (3) Pleural effusion, bilateral: Status: Acute Assessment and plan: Most likely due to hypoalbuminemia. The echocardiogram does show pulmonary hypertension with RVSP of 41 mmHg. Continue midodrine and diuresis. The patient had refused thoracentesis twice on this admission. (4) CAP (community acquired pneumonia): Status: Suspected Assessment and plan: patient presented w/ bilateral lower lobe atelectasis vs infiltrates and moderate to large bilateral pleural effusions for which she has refused thoracentesis even though this would be helpful both diagnostically and therapeutic. She completed course of antibiotics w/ Cefepime x 5 day and Unasyn x 2 day; she now is on oral vancomycin d/t C difficile colitis. I am not sure she every had pneumonia as she never had elevated procalcitionin and her CT has not changed. Qualifiers: Laterality: left Lung location: lower lobe of lung Qualified Code(s): J18.9 - Pneumonia, unspecified organism (5) Lytic lesion of bone on x-ray: Status: Acute Assessment and plan: awaiting SPEP and UPEP, I have added LDH and beta 2 microglobulin level. NM bone scan was limited but was abnormal w/ multiple foci of uptake in the ribs, sternum and C spine. Some of the rib uptake corresponds to her rib fractures seen on her CT scan. (6) Multiple rib fractures: Status: Acute Assessment and plan: Continue pain control and encourage IS/acapella. Qualifiers: Encounter type: initial encounter Fracture type: closed Laterality: bilateral Qualified Code(s): S22.43XA - Multiple fractures of ribs, bilateral, initial encounter for closed fracture (7) Adult failure to thrive: Status: Acute Assessment and plan: BMI of 14.7 kg/m2. Nutrition consulted as is psychiatry: ?eating disorder. Psychiatry feels the patient has depression. Continue mirtazapine. The patient has not had age-appropriate cancer screening and should Do so as an outpatient. We are working up the lytic lesion. Her CT chest/abdomen/pelvis did not reveal obvious masses. She does have abnormal LFTs which I am investigating and suspect are due to pulmonary hypertension and reflux into the liver. (8) Unintentional weight loss: Status: Acute Assessment and plan: As above (9) Protein calorie malnutrition: Status: Acute Assessment and plan: As above Supplement thiamine. Being followed by nutrition. Qualifiers: Protein-calorie malnutrition severity: severe Qualified Code(s): E43 - Unspecified severe protein-calorie malnutrition (10) Transaminitis: Status: Acute Assessment and plan: Hepatitis studies are negative. US RUQ negative. Consider reflux into the liver from fluid overload and pulmonary hypertension. lactate level remains elevated but improved. Consider effects of dietary supplements the patient was taking as outpatient. LFT improving, possible related to unloading of hepatic congestion Lyme antibody is negative. Tick panel negative Consider GI consult. (11) Hypoalbuminemia: Status: Acute Assessment and plan: Encourage PO intake (12) Lactic acidosis: Status: Acute Assessment and plan: with normal procalcitonin level and no refractory hypotension and negative blood cultures, doubt that her lactate was d/t sepsis. May be related to her underlying cause of her multiple fractures, i.e. metastatic cancer/myeloma or may be d/t hepatic congestion. continue to monitor (13) Normocytic anemia: Status: Acute Assessment and plan: Her ferritin is greater than 2000, ruling out iron deficiency. Her B12 and folate are within normal limits as well. There is no active bleeding. I suspect this has to do with her malnutrition and anemia of chronic disease. Of note she is also leukopenic suggesting some bone myelophthistic process. she may need bone marrow to elucidate cause of her lytic fractures and her anemia/leukopenia (14) Hypomagnesemia: Status: Acute Assessment and plan: Replete (15) Sacral decubitus ulcer, stage II: Status: Acute Assessment and plan: C/s wound care, PT (16) Major depressive disorder: Status: Acute Assessment and plan: Evaluated by psychiatry. Continue mirtazapine. Qualifiers: Major depression recurrence: recurrent Active/Remission status: currently active Major depression episode severity: severe Psychotic features: without psychotic features Qualified Code(s): F33.2 - Major depressive disorder, recurrent severe without psychotic features (17) DVT prophylaxis: Status: Acute Assessment and plan: SCDs (18) Discharge planning issues: Status: Acute Assessment and plan: Full code Palliative care consulted. Plan is for discharge to SNF. Per CM [facility], I would like to see her C diff diarrhea under better control. Subjective Subjective Interval history since last seen: Patient just returnted to the floor after second trip down for her bone scan. She could not tolerate this the first time d/t back pain. She was medicated for her test and now is somnolent. I was able to arouse her enough to open her eyes to her name and asked her if she was in any pain and she nodded no. Exam Narrative Exam Narrative: Cachectic appearing elderly -Citizen [place] female who is sitting up in bed she is somnolent but able to be awakened and opens her eyes to her name but does not verbalize. However when I asked her if she is in any pain she nodded her head no and then went back to sleep Lungs are clear to auscultation Heart regular but tachycardic with soft systolic murmur no thrill or gallop Abdomen soft and nontender no palpable organomegaly Extremities with 2+ pedal/ankle and tibial edema Objective Last Vital Signs Temp 36.6 C 10/07/23 11:38 Pulse 113 H 10/07/23 11:38 Resp 18 10/07/23 11:38 BP 122/80 10/07/23 11:38 Pulse Ox 98 10/07/23 11:38 Laboratory Results - last 24 hr 10/02/23 10/03/23 10/04/23 06:45 06:18 12:43 Free Retinol mcg/dL 13.9 L Cortisol 39 Stool Campylobacter PCR Stool Salmonella PCR Stool Shigella PCR Free [place] LC, Quant 24.30 H Free Lambda LC, Quant 1.79 Free [place]/Lambda Ratio 13.58 H B. divergens/MO-1 PCR Negative Babesia duncani (PCR) Negative Babesia microti DNA PCR Negative E.chaffeensis DNA (PCR) Negative E.ewingii/canis DNA PCR Negative E.muris eauclairensis (PCR) Negative Shiga Toxin (PCR) A. phagocytophilum (PCR) Negative Blood B. miyamotoi (PCR) Negative 10/05/23 03:10 Free Retinol mcg/dL Cortisol Stool Campylobacter PCR Negative Stool Salmonella PCR Negative Stool Shigella PCR Negative Free [place] LC, Quant Free Lambda LC, Quant Free [place]/Lambda Ratio B. divergens/MO-1 PCR Babesia duncani (PCR) Babesia microti DNA PCR E.chaffeensis DNA (PCR) E.ewingii/canis DNA PCR E.muris eauclairensis (PCR) Shiga Toxin (PCR) Negative A. phagocytophilum (PCR) Blood B. miyamotoi (PCR) Time Spent with Patient Time Spent with Patient: 35-49 minutes Time was spent: preparing to see the patient(eg.review tests), ordering medications,tests, procedures, referring, communicating with other health manager care, indepentently interpreting results and care coordination
[2023-10-07 19:29] VITALS: BP 111/76; PULSE 100; RESP 18; TEMP 37; O2SAT 89
[2023-10-07] MEDS: Mirtazapine 15 MG TAB 7.5 MG PO (21:37)
[2023-10-07] MEDS: Lidocaine Patch Removal 1 EACH TD (21:38)
[2023-10-07 22:26] VITALS: BP 112/74; PULSE 104; RESP 18; TEMP 37.2; O2SAT 88
[2023-10-08 03:35] VITALS: BP 112/76; PULSE 107; RESP 18; TEMP 37.5; O2SAT 93
[2023-10-08] MEDS: Acetaminophen 325 MG TAB PO ×4 (03:38→19:50)
[2023-10-08] MEDS: Vancomycin 125 MG CAP PO ×4 (05:43→23:31)
[2023-10-08 07:16] LABS: HGB 8.4 g/dL (11.2-15.7); MCH 28.6 pg (27.0-33.0); MCHC 32.3 % (32.0-36.0); MCV 88 fL (80-95); MPV 9.8 fL (8.0-11.0); Platelet Count 164 10^3/uL (130-400); RBC 2.94 10^6/uL (3.93-5.22); RDW 15.5 % (11.7-14.6); RDW-SD 46.5 fL; WBC 3.24 10^3/uL (4.4-10.8)
[2023-10-08 07:28] VITALS: BP 102/66; PULSE 112; RESP 16; TEMP 36.4; O2SAT 98
[2023-10-08 07:48] LABS: ALT 17 U/L (14-59); AST 76 U/L (15-37); Albumin 2.1 g/dL (3.4-5.0); Alkaline Phosphatase 114 U/L (46-116); Anion Gap 12.8 mmol/L (3-11); BUN 14 mg/dL (7-18); Bilirubin, Total 0.7 mg/dL (0.2-1.0); CO2 26.2 mmol/L (21.0-32.0); CREATININE 0.6 mg/dL (0.55-1.02); Calcium 8.9 mg/dL (8.5-10.1); Chloride 99 mmol/L (98-107); Estimated GFR 94.72 (mL/min/1.73m2); Glucose 50 mg/dL (74-106); Magnesium 1.3 mg/dL (1.8-2.4); Potassium 4.1 mmol/L (3.5-5.1); Sodium 138 mmol/L (136-145); Total Protein 6.3 g/dL (6.4-8.2)
[2023-10-08 07:49] LABS: LDH 1067 U/L (81-234)
[2023-10-08 08:07] LABS: Absolute Lymphocyte Count 0.49 10^3/uL (1.2-3.4); Absolute Monocyte Count 0.06 10^3/uL (0.1-0.8); Absolute Neutrophil Count 2.56 10^3/uL (1.2-6.7); Bands % 4
[2023-10-08 08:08] LABS: Diff Comment Manual Differential; Metamyelocytes % 1; Myelocytes % 3; Polychromasia Present
[2023-10-08 08:09] LABS: Poikilocytes 1+
[2023-10-08] MEDS: Calcitonin-Salmon, Synthetic 3.7 ML BTL NS (08:28)
[2023-10-08] MEDS: Magnesium Chloride 64 MG TABCR PO ×2 (08:31→19:50)
[2023-10-08] MEDS: Furosemide 20 MG TAB PO (08:32)
[2023-10-08] MEDS: Midodrine 2.5 MG TAB PO ×3 (08:32→19:50)
[2023-10-08] MEDS: Metoprolol 12.5 MG TAB PO ×3 (08:32→23:31)
[2023-10-08] MEDS: Normal Saline Flush 10 ML SYR IVP ×2 (08:33→19:51)
[2023-10-08] MEDS: Protein Nutritional Supplement 16 GM 1 OUNCE PACKET PO ×3 (08:35→19:50)
[2023-10-08] MEDS: Loperamide 2 MG CAP PO (09:45)
[2023-10-08] MEDS: traMADol 50 MG TAB PO ×3 (09:46→21:44)
[2023-10-08] MEDS: Lidocaine 5% Patch 1 PATCH TP (09:46)
--- NOTE | 2023-10-08 10:24 | CMPROGNOTE_ITS ---
Date of service: 10/08/23 Time of Service: 10:24 Care Management Progress Note Progress Note Text Progress Note Text: S/O: Joselin was lying in bed when CM met with her. She stated that she is doing ok today. She appeared overwhelmed at times during the conversation, as CM reviewed [facility] with her and her daughters, as well as additional forms that Maryan was instructed to complete by [facility]. CM will provide a financial assistance packet for any costs incurred that [facility] may not cover. Palliative care met with Joselin again today, while her daughters were present, and Joselin decided to change her code status to DNR/DNI. Joselin has been accepted at [facility]. CM reviewed the facility options for [facility], as [facility] also has a bed available. Per MD, Joselin will likely be ready for discharge once her stools are manageable. Joselin's daughter's have expressed concern about her leaving the hospital too soon; CM reviewed expectations for acute inpatient care vs outpatient workup, which will likely continue post discharge. A: Claudia is a 73 year old female admitted to [facility] on 09/30/23 with lactic acidosis. P: Anticipate Joselin will go to SNF for short term rehab prior to returning home. Referrals were sent to [facility] facilities as well as [facility]; a bed offer was made at [facility]. She will transport via private vehicle by family, if able. She will follow up with her PCP and discharge plan of care. CM will continue to follow. SDOH(Care Management) Screening Will the Patient Participate in the Screening?: Yes Do you worry about having a steady place to live?: no In the past 12 months, have you had to go without electric, gas, oil or water in your home?: no Have you or anyone in your house had to go without enough food to eat?: no Has lack of transportation kept you from medical appointments or from doing things needed for daily living?: no Has anyone in your support network made you feel unsafe for any reason?: no
[2023-10-08 12:29] VITALS: BP 129/84; PULSE 102; RESP 16; TEMP 35.6; O2SAT 96
[2023-10-08 12:57] LABS: Albumin 40.8 % (55.8-66.1); Albumin g/dL 2.2 g/dL (3.6-5.2); Immunotyping, Serum (See Note); Total Protein 5.3 g/dL (6.3-8.2)
--- NOTE | 2023-10-08 13:47 | PCPN_ITS ---
Date of service: 10/08/23 Time of Service: 13:48 Assessment and Plan Assessment and plan (1) Palliative care patient: Status: Acute Assessment and plan: Although patient reports I am getting better and feeling much better . Her affect seems to be the same. This is my second time meeting her. She often appears to be tangential. Listening more carefully what I heard was her coming back to subjects we had discussed earlier in the visit. There was a definite as process of quality to her thought process. I did not do formal mental status orientation testing again today. This OCD quality goes along with her excessive Mastication. Her weight has gone up about 3 kg from admission (no weight done in the last 3 days). #Advance care planning: Daughters were asking about advance care planning. # Health Care Agent: Specifically they were asking about healthcare agent. They have previously had her complete DURABLE POWER OF VICE PRESIDENT CORPORATE COMMUNICATIONS. Of note they also had forms today to begin applying for choices for care for their mother and seems somewhat overwhelmed by this. With patient's permission, shared with them healthcare agent form that we completed with her last week. This puts daughter Trish as healthcare agent and daughter Daja Wood as alternate. Daughter Francesca may also participate in health care decisions. After discussion, daughters wondered if their mom should change this to a different order, but after consideration decided to leave it unchanged. They feel that mostly they will helping their mom via supported decision making. They say they will work together as a team (always have). Interesting to note that the patient gets stuck on her DURABLE POWER OF VICE PRESIDENT CORPORATE COMMUNICATIONS and cannot seem to understand that this is a different form. Intermittently she says yes that is what I want . Then begins to ask again about her DPOA form. She was better able to stay on this topic last week when we spoke #Code Status: We discussed the procedure of CPaR, actual mechanical process, rate of success in restoring heartbeat, short and long-term side effects in survivors (including likely decreased physical and cognitive functioning). Questions were answered. Patient was immediately sure she would not want CPR especially chest compressions but also defibrillation. She would never want to be intubated. She appears to have capacity and understood that she if her stopped and she did not receive CPR, she would . COLST form was completed and reviewed with her. For now she would like to come back to the hospital she gets sick for evaluation and treatment including antibiotics and IV fluids. Nursing staff and hospitalist aware of change in CODE STATUS. #Goals of care, further limitations of investigation and treatment. As mentioned above, patient has avoided formal medical care since her children were born. She does report that all 4 girls were born in hospital. However since then she is only met occasionally with engineering operator. During her 1 week hospital stay here she is excepted IVs, IV antibiotics, medications and agreed to imaging studies. However, when thoracentesis was recommended, she declined this procedure. I asked her to help me understand what was different about this procedure that she decided not to agree to it. She explained she was worried about having more pain. She was unable to express further any specific fears, concerns. As per daughters, she had not shared any more insight with them as well. She is aware that there is pending blood work to make sure nothing more serious is going on like a cancer (i.e. multiple myeloma). The daughters appear to be more aware of this, having discussed with hospitalist on the phone last night. The daughters actually led discussion by asking her that if it turned out that she had a cancer, which she want to pursue treatment? Given her past reluctance to engage with allopathic medicine, they would understand if she did not. But if she did want to consider treatment , this would require further testing (daughters brought up bone marrow biopsy). Patient was adamant that she was not going to discuss this until the blood tests were back. Daughters were quite eloquent and pointing out that she had a choice about whether or not to pursue treatment: If there was a cancer such as malignant melanoma, her choice was to either pursue further workup and treatment (if offered) or to decide to pivot to comfort measures and stay home and be comfortable (as per daughters). Patient was consistent in saying that she would not discuss this until additional blood work was back. She felt it was just impossible for her to discuss it and did not want to. Plan: Palliative Care Team will work on meeting with patient and family again in about 10 to 14 days. We could meet with her in subacute rehab if she is still there, a palliative care office or via telehealth visit (lives outside of [facility]). Daughters have our phone number and can call the office as needed. #Mental health: Psychiatrist felt she likely had adjustment reaction/depression. Today I got a stronger flavor of OCD type of thinking. If OCD type thinking continues, SSRI such as citalopram might be more helpful than mirtazapine. Additionally, CBT as an outpatient could be helpful as well. 16 to 30 minutes spent today on Advance Care Planning. Patient and family participated voluntarily. Advance care planning may include (not limited to) explanation and discussion of advance directives, choosing and appointing healthcare agents, alternatives to various ACP tools, discussion of (and if indicated, completion of) COLST form, discussion of patient's values and overall goals for treatment, palliative and disease directive care options, ways to avoid hospital readmission including hospice discussions, care preferences should the patient's several other adverse health events.See today's palliative care note for additional information. This note was dictated using speech recognition software. Attempt was made at proofreading, but errors may be present. Please call with questions. (2) Advanced care planning/counseling discussion: Status: Acute (3) DNR (do not resuscitate): Status: Acute (4) Major depressive disorder: Status: Acute Qualifiers: Major depression recurrence: recurrent Active/Remission status: currently active Major depression episode severity: severe Psychotic features: without psychotic features Qualified Code(s): F33.2 - Major depressive disorder, recurrent severe without psychotic features (5) Lytic lesion of bone on x-ray: Status: Acute (6) Multiple rib fractures: Status: Acute Qualifiers: Encounter type: initial encounter Fracture type: closed Laterality: bilateral Qualified Code(s): S22.43XA - Multiple fractures of ribs, bilateral, initial encounter for closed fracture (7) Normocytic anemia: Status: Acute (8) Pleural effusion, bilateral: Status: Acute (9) Unintentional weight loss: Status: Acute Subjective Subjective Interval history since last seen: Claudia See is a 73-year-old woman from [facility] who was admitted to [facility] a week ago with community-acquired pneumonia, subacute rib fractures, pleural effusion, anemia and significant 45 pound weight loss Other problems include increased stress from caring for her with dementia resulting in unintentional 45 pound weight loss, increasing frailty with falls, rib fracture resulting from falls. Patient had avoided most medical care, only seeing a engineering operator a few times since her children were born decades ago. During her hospitalization she has been evaluated by speech therapy (they have been working with her on decreasing time of chewing before swallowing and optimizing textures that she will enjoy), telemetry psych consult (felt that patient had depression and recommended starting low-dose mirtazapine), treatment for the pneumonia, development of C. difficile (treatment started about 2 days ago), and recognition of possible multiple bony lesions suggestive of metastatic disease seen on nuclear and radiologic imaging studies. Also note that patient declined having diagnostic/therapeutic pleurocentesis done on pleural effusions. Patient's family requested that palliative care meet with them in person today to Discuss goals of care, advanced care planning and begin to explore whether patient would want to pursue further diagnosis and treatment should testing for multiple myeloma come back positive. I met today in patient's room with patient, daughter Trish (also healthcare agent), and daughter Francesca (DPOA) and her Elva. Care Team: Primary Care physician:Offshoring ManagerSt. Vance Henriquez ([place] [facility]). No allopathic physician. Social HX: #1 (she was age 38). Currently to #2 has dementia and she has been caring for him for 20 years, admitted to [facility] for retirement care last week. 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 Hobbies: Sewing, drawing and baking and cooking. Additional Services: Was getting some help from 's aide with housework. Goals of care questions: She is tangential and gets stuck Function: Ambulation: reports she has been ambulatin without assistance ADLs: iADLs: Was getting help from 's caregiver since breaking ribs. Hearing: Says hearing is poor. No hearing aids. Hearing slightly better today Vision: Uses glasses. Cognition: See A/P and PE Falls: Falls started when she started getting dizzy and weak a few months ago.See HPI Driving: Had been driving Driving, but feels no longer safe. Palliative Performance Scale % Ambulation Activity and Evidence of Disease Self Care Intake Level of Consciousness 100 Full Normal activity, no evidence of disease Full Normal Full 90 Full Normal activity, some evidence of disease Full Normal Full 80 Full Normal activity with effort, some evidence of disease Full Normal or reduced Full 70 Reduced Unable to do normal work, some evidence of disease Full Normal or reduced Full 60 Reduced Unable to do hobby or some housework, significant disease Occasional assist necessary Normal or reduced Full or confusion 50 Mainly sit/lie Unable to do any work, extensive disease Considerable assistance required Normal or reduced Full or confusion 40 Mainly in bed Unable to do any work, extensive disease Mainly assistance Normal or reduced Full, drowsy, or confusion 30 Totally bed bound Unable to do any work, extensive disease Total care Reduced Full, drowsy, or confusion 20 Totally bed bound Unable to do any work, extensive disease Total care Minimal sips Full, drowsy, or confusion 10 Totally bed bound Unable to do any work, extensive disease Total care Mouth care only Drowsy or coma 0 - - - - Patient Score: Varying report from patient, will query daughter. Spiritual history: [facility]. Praying very helps tremendously. Palliative review of systems: Pain: Dyspnea: GI symptoms:Denies nausea Appetite: Depression:NQ Anxiety: None Emotional Distress:It's been really hard Spiritual/Existential Distress: Labs:Reviewed Advanced Care Planning: Advanced Directive: NOne on file Health CAre Agent: 10/02/2023 form: Daughter Trish snowden [facility], daughter Gavi Wood alternate COLST: drawn up today 10/08/2023, see form: DNI/DNR +transfer and +treat Limitations: Objective Last Vital Signs Temp 35.6 C L 10/08/23 12:29 Pulse 102 H 10/08/23 12:29 Resp 16 10/08/23 12:29 BP 129/84 10/08/23 12:29 Pulse Ox 96 10/08/23 12:29 Laboratory Results - last 24 hr 10/04/23 10/08/23 12:43 05:45 WBC 3.24 L RBC 2.94 L Hgb 8.4 L Hct 26.0 L MCV 88 MCH 28.6 MCHC 32.3 RDW 15.5 H Plt Count 164 MPV 9.8 Immature Gran % See Differential Neutrophils % 75.0 Band Neutrophils % 4 Lymphocytes % 15.0 Monocytes % 2.0 Eosinophils % 0.0 Basophils % 0.0 Metamyelocytes % 1 Myelocytes % 3 Nucleated RBC % 4.0 H Absolute Neutrophils 2.56 Absolute Lymphocytes 0.49 L Absolute Monocytes 0.06 L Absolute Eosinophils 0.00 Absolute Basophils 0.00 RBC Morphology See Below Polychromasia Present Poikilocytosis 1+ Sodium 138 Potassium 4.1 Chloride 99 Carbon Dioxide 26.2 Anion Gap 12.8 H BUN 14 Creatinine 0.6 Est GFR (CKD-EPI 2020) 94.72 Glucose 50 L Calcium 8.9 Magnesium 1.3 L Total Bilirubin 0.7 AST 76 H ALT 17 Alkaline Phosphatase 114 Lactate Dehydrogenase 1067 H Total Protein 6.3 L Total Protein (PEP) 5.3 L Albumin 2.1 L Albumin % (PEP) 40.8 L Albumin (PEP) 2.2 L Joflw-4-Gusyhjdoq 0.60 H Jrtcd-5-Gifberbzq (%) 11.0 H Mnxwa-1-Jbepadhcl 0.90 Nufvd-6-Fonulvsfd (%) 16.7 H Beta Globulins (%) 12.3 Beta Gamma Globulin 0.70 Gamma Globulins 1.00 Gamma Globulins (%) 19.2 H M-Brant Not Applicable M-Brant % Not Applicable PEP Comment SEE BELOW Serum Immunofixation (See Note)
[2023-10-08 15:36] VITALS: BP 103/75; PULSE 100; RESP 16; TEMP 35.1; O2SAT 95
--- NOTE | 2023-10-08 16:38 | CHAPLAIN ---
I stopped in Joselin's room while she was meeting with Dr. Christian from [facility]. Three daughters were in the room with her. I will visit again. Last week I visited while Joselin's daughter was brushing out her hair, and said a prayer with Joselin.
--- NOTE | 2023-10-08 16:55 | PT.INTREAT ---
Date of service: 10/08/23 Time of Service: 16:38 PT Notes Visit Reasons: Lactic Acidosis Inpatient Physical Therapy Treatment Note [facility] Date: 10/08/23 PRECAUTIONS: Fall, CONTACT, activity as tolerated. SUBJECTIVE: Patient reports feeling tired, weak, wobbly, unsteady today. Patient's daughter and another visitor suggest that this may be due to having done a lot yesterday, medication etc for bone scan combined with increased pain and decreased PO intake yesterday. OBJECTIVE: Sitting up in bedside chair, agreeable to therapy ? PAIN: none reported BED MOBILITY/TRANSFERS? Sit-stand: CGA ? Stand-sit: CGA ? Therapeutic Exercises ([id number]): Direct one-on-one instruction in therapeutic exercises to develop strength, endurance, range of motion and flexibility. Ambulation ? Assistive Device: FWW? Weight bearing: full Assist: mod assist to maintain patient's balance over the first 12 feet, then CGA only once patient steadies herself. ? Distance:? 15 feet, rest x 5? Deviation: Patient's balance is noticeably worse today then it has been recently, and patient repeatedly requests a 3 minute rest after walking only 15 feet with is unusual for her. ? Provided skilled instruction in proper exercise performance Provided skilled manual cues to facilitate proper muscle recruitment and/or form. ASSESSMENT:? Patient is markedly more fatigued today, performance suffers as a result. PLAN: continue global strengthening per plan of care until patient is medically cleared for discharge and obtains a safe discharge plan. TREATMENT CODE/TIME: 17 minutes beginning at 16:38
[2023-10-08] MEDS: MAGNESIUM SULFATE 4 GM/100 ML BAG IVPB (17:47)
--- NOTE | 2023-10-08 17:59 | W.PM.PROGNOT ---
Date of Service Date of service: 10/08/23 Time of Service: 17:59 Assessment and Plan Assessment and plan (1) C. difficile diarrhea: Status: Acute Assessment and plan: secondary to recent antibiotic treatment for reported pneumonia (I think she probably did not have pneumonia but her findings were that from atelectasis from her pleural effusions, nevertheless she was treated w/ 7 days of antibiotics (Cefepime x 5 d and Unasyn x 2d) and developed C diff colitis. Now on vancomycin, not ready for dc from the hospital until diarrhea is under better control and her bone pain is controlled. (2) Pleural effusion, bilateral: Status: Acute Assessment and plan: Continue diuretics continue protein supplementation, patient refuses thoracentesis (3) Lytic lesion of bone on x-ray: Status: Acute Assessment and plan: Awaiting SPEP and UPEP results. She has kappa light chains in her urine. Treat bone pain with Miacalcin nasal spray topical Lidoderm patches and oral tramadol. Consider infusion of bisphosphonates (4) Multiple rib fractures: Status: Acute Assessment and plan: As above Qualifiers: Encounter type: initial encounter Fracture type: closed Laterality: bilateral Qualified Code(s): S22.43XA - Multiple fractures of ribs, bilateral, initial encounter for closed fracture (5) Adult failure to thrive: Status: Acute Assessment and plan: Nutritional consult, protein supplementation, treat depression (6) Protein calorie malnutrition: Status: Acute Assessment and plan: As above Qualifiers: Protein-calorie malnutrition severity: severe Qualified Code(s): E43 - Unspecified severe protein-calorie malnutrition (7) Transaminitis: Status: Acute Assessment and plan: Hepatitis studies are negative. US RUQ negative. Suspect passive hepatic congestion now improving with diuresis. (8) Hypoalbuminemia: Status: Acute Assessment and plan: Encourage PO intake (9) Hypomagnesemia: Status: Acute Assessment and plan: Replete (10) Sacral decubitus ulcer, stage II: Status: Acute Assessment and plan: C/s wound care, PT (11) Major depressive disorder: Status: Acute Assessment and plan: Evaluated by psychiatry. Continue mirtazapine. Qualifiers: Major depression recurrence: recurrent Active/Remission status: currently active Major depression episode severity: severe Psychotic features: without psychotic features Qualified Code(s): F33.2 - Major depressive disorder, recurrent severe without psychotic features (12) DVT prophylaxis: Status: Acute Assessment and plan: SCDs (13) Discharge planning issues: Status: Acute Assessment and plan: Full code Palliative care consulted. Plan is for discharge to SNF. Subjective Subjective Interval history since last seen: Patient says that she is still having loose Bm, not currently in pain this evening. I went over her bone survey and her bone scan results with her and told her that we are thinking that she has a form of bone cancer called multiple myeloma. She asked what this is and inquired about how we know. I told her that the only definitive way to know is to get a bone marrow biopsy but this would have to entail sending her to another facility as an outpatient. I told her that some of her tests are pending such as her urine and blood immunofixation tests. Exam Narrative Exam Narrative: Cachectic appearing -Dominican female who is sitting up in bed attentively writing notes in her notebook. Chest wall nontender to palpation Lungs are clear to auscultation Heart is regular rate rhythm Abdomen scaphoid nontender Extremities 1+ edema of her feet and legs Objective Last Vital Signs Temp 35.1 C L 10/08/23 15:36 Pulse 100 H 10/08/23 15:36 Resp 16 10/08/23 15:36 BP 103/75 10/08/23 15:36 Pulse Ox 95 10/08/23 15:36 Laboratory Results - last 24 hr 10/04/23 10/08/23 12:43 05:45 WBC 3.24 L RBC 2.94 L Hgb 8.4 L Hct 26.0 L MCV 88 MCH 28.6 MCHC 32.3 RDW 15.5 H Plt Count 164 MPV 9.8 Immature Gran % See Differential Neutrophils % 75.0 Band Neutrophils % 4 Lymphocytes % 15.0 Monocytes % 2.0 Eosinophils % 0.0 Basophils % 0.0 Metamyelocytes % 1 Myelocytes % 3 Nucleated RBC % 4.0 H Absolute Neutrophils 2.56 Absolute Lymphocytes 0.49 L Absolute Monocytes 0.06 L Absolute Eosinophils 0.00 Absolute Basophils 0.00 RBC Morphology See Below Polychromasia Present Poikilocytosis 1+ Sodium 138 Potassium 4.1 Chloride 99 Carbon Dioxide 26.2 Anion Gap 12.8 H BUN 14 Creatinine 0.6 Est GFR (CKD-EPI 2020) 94.72 Glucose 50 L Calcium 8.9 Magnesium 1.3 L Total Bilirubin 0.7 AST 76 H ALT 17 Alkaline Phosphatase 114 Lactate Dehydrogenase 1067 H Total Protein 6.3 L Total Protein (PEP) 5.3 L Albumin 2.1 L Albumin % (PEP) 40.8 L Albumin (PEP) 2.2 L Rkkit-1-Iycwpruub 0.60 H Zrwgh-3-Odbctiute (%) 11.0 H Ewkrn-3-Meusdckfz 0.90 Yqxhs-2-Nouwemvws (%) 16.7 H Beta Globulins (%) 12.3 Beta Gamma Globulin 0.70 Gamma Globulins 1.00 Gamma Globulins (%) 19.2 H M-Brant Not Applicable M-Brant % Not Applicable PEP Comment SEE BELOW Serum Immunofixation (See Note) Time Spent with Patient Time Spent with Patient: 25-34 minutes Time was spent: preparing to see the patient(eg.review tests), ordering medications,tests, procedures, referring, communicating with other health adult live in caregiver, indepentently interpreting results, counseling the patient and care coordination
--- NOTE | 2023-10-08 19:48 | W.POCUS ---
Pocus Exam Limited Thoracic Lung Exam DATE OF EXAM: 10/08/23 TIME OF EXAM: 14:45 PROVIDER THAT PERFORMED THE STUDY: Agus Luna IS THIS A REPEAT EXAM DURING THIS ENCOUNTER: No REASON FOR EXAM: Acute Respiratory Distress Syndrome, Hypoxia, Pneumonia and Shortness ofBreath VISUALIZED STRUCTURES: right anterior, left anterior, right lateral, left lateral, right posterior, left posterior, right subcostal and left subcostal PERTINENT FINDINGS/IMPRESSION: B-lines/left side thoracis location: anterior, lateral and posterior, B-lines/right side thoracis location: anterior, lateral and posterior and Left pleural effusion (small) DIFFERENTIAL DIAGNOSES: Cardiogenic vs noncardiogenic pulmonary edema, pneumonia. No air bronchograms and no shred sign. See bedside echo report. Favor viral pneumonia w/ Non-cardiogenic pulmonary edema, i.e. ARDS Exam complete
--- NOTE | 2023-10-08 19:53 | W.POCUS ---
Pocus Exam Limited Cardiac Exam DATE OF EXAM: 10/08/23 TIME OF EXAM: 14:58 PROVIDER THAT PERFORMED THE STUDY: Agus Luna REASON FOR EXAM: Dyspnea, Evaluation of LV function and Hypoxia VISUALIZED STRUCTURES: four chambers, LVOT, aortic valve, Interventricular septum and IVC VIEW OBTAINED: Apical 4-Chamber, Parasternal long-axis, Parasternal short-axis and Subxiphoid PERTINENT FINDINGS/IMPRESSION: IVC inspiratory collapsability; No LV dysfunction, No pericardial effusion, No plethoric IVC, No RV dilation and No RV dysfunction INCIDENTAL FINDINGS: Normal to hyperdynamic LV function w/ no wall motion abnormalities. Normal RV size and function. IVC is small and collapses >50% w/ inspiration suggestive of low RAP (i.e. 3 cm) and mitral inflow velocity ratio of E/A 0.8 and E wave of 64 cm/s with normal lateral e' 12.8 cm and E/e' of 5 suggests low left ventricular filling pressures.
[2023-10-08 19:56] VITALS: BP 114/82; PULSE 100; RESP 14; TEMP 36.2; O2SAT 96
[2023-10-08] MEDS: Mirtazapine 15 MG TAB 7.5 MG PO (21:37)
[2023-10-08] MEDS: Lidocaine Patch Removal 1 EACH TD (21:40)
[2023-10-08 23:20] VITALS: BP 121/72; PULSE 101; RESP 14; TEMP 36.7; O2SAT 93
[2023-10-09] VITALS (8 sets, daily range): BP systolic 98–136; BP diastolic 64–89; PULSE 69–144; RESP 16–24; TEMP 35.4–37.1; O2SAT 92–96
[2023-10-09] MEDS: Vancomycin 125 MG CAP PO ×3 (05:55→18:22)
[2023-10-09 06:55] LABS: Abs Immature Grans 0.22 10^3/uL (0.0-0.06); Absolute Basophil Count 0.03 10^3/uL (0.0-0.2); Absolute Eosinophil Count 0.01 10^3/uL (0.0-0.7); Absolute Lymphocyte Count 0.99 10^3/uL (1.2-3.4); Basophils % 0.9; Eosinophils % 0.3; HGB 8.4 g/dL (11.2-15.7); Immature Grans % 6.8; Lymphocytes % 30.5; MCH 28.8 pg (27.0-33.0); MCHC 32.3 % (32.0-36.0); MCV 89 fL (80-95); MPV 10.4 fL (8.0-11.0); Monocytes % 3.1; Neutrophils % 58.4; Nucleated RBC 7.7 % (0.0-0.3); Platelet Count 171 10^3/uL (130-400); RBC 2.92 10^6/uL (3.93-5.22); RDW 15.7 % (11.7-14.6); RDW-SD 47.1 fL; WBC 3.25 10^3/uL (4.4-10.8)
[2023-10-09 07:06] LABS: Anion Gap 15.9 mmol/L (3-11); BUN 15 mg/dL (7-18); CO2 25.1 mmol/L (21.0-32.0); CREATININE 0.7 mg/dL (0.55-1.02); Calcium 9.1 mg/dL (8.5-10.1); Chloride 100 mmol/L (98-107); Estimated GFR 91.26 (mL/min/1.73m2); Glucose 66 mg/dL (74-106); Magnesium 1.7 mg/dL (1.8-2.4); Potassium 3.8 mmol/L (3.5-5.1); Sodium 141 mmol/L (136-145)
[2023-10-09 07:14] LABS: Diff Comment Diff Reviewed; Polychromasia Present
[2023-10-09 07:34] LABS: Vitamin D 25 Total 38.9 ng/mL (30-100)
[2023-10-09] MEDS: Calcitonin-Salmon, Synthetic 3.7 ML BTL NS (07:58)
[2023-10-09] MEDS: Protein Nutritional Supplement 16 GM 1 OUNCE PACKET PO ×3 (07:58→20:19)
[2023-10-09] MEDS: Normal Saline Flush 10 ML SYR IVP ×2 (07:59→22:27)
[2023-10-09] MEDS: Furosemide 20 MG TAB PO (08:00)
[2023-10-09] MEDS: Metoprolol 12.5 MG TAB PO ×2 (08:00→16:49)
[2023-10-09] MEDS: Acetaminophen 325 MG TAB PO ×2 (08:00→14:40)
[2023-10-09] MEDS: Magnesium Chloride 64 MG TABCR PO ×3 (08:00→20:20)
[2023-10-09] MEDS: Midodrine 2.5 MG TAB PO ×3 (08:00→20:20)
--- NOTE | 2023-10-09 08:43 | PTTR_ITS ---
PT Notes Visit Reasons: Lactic Acidosis Date: 10/09/2023 PRECAUTIONS: Fall, CONTACT, activity as tolerated. SUBJECTIVE: pt in bed when approached for therapy this morning, agreed to let this therapist gown up to be able to enter room. OBJECTIVE: ?IV line on right UE antecubital ? PAIN: generalized unspecified VITALS: closely monitored by nursing Therapeutic Activities [id number]: Direct one-on-one instruction in dynamic activities to improve functional performance. ?? BED MOBILITY/TRANSFERS? Rolling L/R: Max A Supine-sit: Max A ? Sit-supine: Max A ? Sit-stand: ?not performed? Stand-sit: ??not performed ? Bed-Chair:? ?not performed ? Chair-bed: not performed Provided skilled cues and instruction on performance and technique throughout. ? ASSESSMENT:?Pt initially agreed to participating with therapy, pt allowed merrill sition from supine to 45 degree pt requested to stop there to allow for positional change adaptation since pt reports she feels nauseous, move to 90 degree elevation after a few minutes. pt decided she is not feeling too good and requested to go back to supine position and expressed she would like to try again later in the day when she feels stronger. This therapist clarified what she meant by feeling stronger pt expressed later in the day so she would have rested enough. PLAN: Continue with balance training, global strengthening and general conditioning for improved safety, mobility and activity tolerance until pt is ready for DC. TREATMENT CODE/TIME: [id number], 15mins (8:30-8:45am)
[2023-10-09] MEDS: Lidocaine 5% Patch 1 PATCH TP (09:03)
[2023-10-09] MEDS: Loperamide 2 MG CAP PO ×2 (10:40→13:09)
[2023-10-09] MEDS: oxyCODONE 5 MG TAB 2.5 MG PO ×2 (12:50→18:22)
--- NOTE | 2023-10-09 14:24 | PT.INTREAT ---
Date of service: 10/09/23 Time of Service: 14:10 PT Notes Visit Reasons: Lactic Acidosis Inpatient Physical Therapy Treatment Note [facility] Date: 10/09/23 PRECAUTIONS: Fall, standard, activity as tolerated. SUBJECTIVE: Patient first states Today? No... when approached for therapy this afternoon, but quickly changes her mind and states that she will try. Daughter reports that patient suffered a fall this morning on the way to the bathroom, where she became faint and fell, hitting her shoulder on the floor. Patient says it wasn't a hard fall and denies pain. Patient's daughter also reports that patient is on a new medication for pain, and it is causing her to be out of it. OBJECTIVE: Sitting up in bedside recliner, feet elevated, agreeable to therapy. ? PAIN: denies pain. VITALS: monitored by nursing staff. ? BED MOBILITY/TRANSFERS? Rolling L/R: not assessed Supine-sit: not assessed ? Sit-supine: not assessed ? Sit-stand: CGA with gait belt ? Stand-sit: CGA with gait belt ? Therapeutic Exercises ([id number]): Direct one-on-one instruction in therapeutic exercises to develop strength, endurance, range of motion and flexibility. Ambulation ? Assistive Device: FWW ? Weight bearing: full Assist: CGA ? Distance:? 40 feet ? Deviation: This clinician asks patient 3x to turn around at the doorway, eventually moving to block doorway before patient appears to register what is being said. Patient's auditory processing is severely impaired today. This is potentially due to new medication per daughter. Patient becomes disoriented, turning around several times, asks to be done with therapy. States that she would like to go to her chair, then walks past the chair to universal grinder operator front of the bed. When asked if she wants to go to the chair or the bed, she again states the chair. Begins to walk toward the chair, then reverses direction without apparent cause. Requires max verbal, visual, and tactile cues to orient her to the location of the chair. ? Provided skilled instruction in proper exercise performance Provided skilled manual cues to facilitate proper muscle recruitment and/or form. ASSESSMENT:? Patient presents with new cognitive / auditory processing deficits today. PLAN: Alert RN to new deficits, continue global strengthening per plan of care until patient is medically cleared for discharge and obtains safe discharge plan. TREATMENT CODE/TIME: 12 minutes beginning at 14:10
[2023-10-09 16:50] LABS: Beta-2-Microglobulin 3.94 mcg/mL
--- NOTE | 2023-10-09 17:16 | PDOC.CMPRO ---
Date of service: 10/09/23 Time of Service: 17:16 Care Management Progress Note Progress Note Text Progress Note Text: S/O: Joselin was sitting in her chair when CM met with her and Maryan. CM reviewed SNF placement updates; the family would like the [facility] and Joselin does not require S/T; reasoning for denial. CM left message at [facility] as well. [facility] B forms provided to CM; CM reviewed contact info for support and submission and provided Financial Assistance application, Maryan shared concerns her mother would be over income. CM following. A: Claudia is a 73 year old female admitted to [facility] on 09/30/23 with lactic acidosis. P: Anticipate Joselin will go to SNF for short term rehab prior to returning home. Referrals were sent to [facility] as well as [facility]; a bed offer was made at [facility] and possibly [facility]. She will transport via private vehicle by family, if able. She will follow up with her PCP and discharge plan of care. CM will continue to follow. SDOH(Care Management) Screening Will the Patient Participate in the Screening?: Yes Do you worry about having a steady place to live?: no In the past 12 months, have you had to go without electric, gas, oil or water in your home?: no Have you or anyone in your house had to go without enough food to eat?: no Has lack of transportation kept you from medical appointments or from doing things needed for daily living?: no Has anyone in your support network made you feel unsafe for any reason?: no
--- NOTE | 2023-10-09 17:41 | W.PM.PROGNOT ---
Date of Service Date of service: 10/09/23 Time of Service: 17:41 Assessment and Plan Assessment and plan (1) C. difficile diarrhea: Status: Acute Assessment and plan: Continue 14-day course of oral vancomycin (day #5) along with probiotic, added Metamucil to try to thicken her stools. Stools are getting more formed now. I think she could be discharged and managed as outpatient at this point if we can get her pain under control (2) Sinus tachycardia: Status: Acute Assessment and plan: I think her sinus tachycardia is related to her pain. Rhythm has been stable, no PSVT or afib. I will dc her telemetry at this point. Wean lopressor to 12.5 mg bid (3) Pleural effusion, bilateral: Status: Acute Assessment and plan: Most likely due to hypoalbuminemia. The echocardiogram does show pulmonary hypertension with RVSP of 41 mmHg. Continue midodrine and diuresis. The patient had refused thoracentesis twice on this admission. (4) CAP (community acquired pneumonia): Status: Suspected Assessment and plan: patient presented w/ bilateral lower lobe atelectasis vs infiltrates and moderate to large bilateral pleural effusions for which she has refused thoracentesis even though this would be helpful both diagnostically and therapeutic. She completed course of antibiotics w/ Cefepime x 5 day and Unasyn x 2 day; she now is on oral vancomycin d/t C difficile colitis. I am not sure she every had pneumonia as she never had elevated procalcitionin and her CT has not changed. Qualifiers: Laterality: left Lung location: lower lobe of lung Qualified Code(s): J18.9 - Pneumonia, unspecified organism (5) Lytic lesion of bone on x-ray: Status: Acute Assessment and plan: still awaiting UPEP. SPEP did not have a monoclonal spike so does not appear to be MM however, I will await results of her Beta 2 microglobulin and her UPEP. Of note she did have elevated free Ale light chains in her urine. (6) Multiple rib fractures: Status: Acute Assessment and plan: Continue pain control and encourage IS/acapella. I have changed her APAP chacha 1000 mg tid scheduled and put her on tramadol 50 mg po qid. She also has lidoderm patches Qualifiers: Encounter type: initial encounter Fracture type: closed Laterality: bilateral Qualified Code(s): S22.43XA - Multiple fractures of ribs, bilateral, initial encounter for closed fracture (7) Adult failure to thrive: Status: Acute Assessment and plan: BMI of 14.7 kg/m2. Nutrition consulted as is psychiatry: ?eating disorder. Psychiatry feels the patient has depression. Continue mirtazapine. The patient has not had age-appropriate cancer screening and should Do so as an outpatient. We are working up the lytic lesion. Her CT chest/abdomen/pelvis did not reveal obvious masses. She does have abnormal LFTs which I am investigating and suspect are due to pulmonary hypertension and reflux into the liver. (8) Unintentional weight loss: Status: Acute Assessment and plan: As above (9) Protein calorie malnutrition: Status: Acute Assessment and plan: As above Supplement thiamine. Being followed by nutrition. Qualifiers: Protein-calorie malnutrition severity: severe Qualified Code(s): E43 - Unspecified severe protein-calorie malnutrition (10) Transaminitis: Status: Acute Assessment and plan: Hepatitis studies are negative. US RUQ negative. (11) Hypoalbuminemia: Status: Acute Assessment and plan: Encourage PO intake (12) Lactic acidosis: Status: Acute Assessment and plan: with normal procalcitonin level and no refractory hypotension and negative blood cultures, doubt that her lactate was d/t sepsis. May be related to her underlying cause of her multiple fractures, i.e. metastatic cancer/myeloma or may be d/t hepatic congestion. continue to monitor (13) Normocytic anemia: Status: Acute Assessment and plan: Her ferritin is greater than 2000, ruling out iron deficiency. Her B12 and folate are within normal limits as well. There is no active bleeding. I suspect this has to do with her malnutrition and anemia of chronic disease. Of note she is also leukopenic suggesting some bone myelophthistic process. she may need bone marrow to elucidate cause of her lytic fractures and her anemia/leukopenia (14) Hypomagnesemia: Status: Acute Assessment and plan: Replete (15) Sacral decubitus ulcer, stage II: Status: Acute Assessment and plan: C/s wound care, PT (16) Major depressive disorder: Status: Acute Assessment and plan: Evaluated by psychiatry. Continue mirtazapine. Qualifiers: Major depression recurrence: recurrent Active/Remission status: currently active Major depression episode severity: severe Psychotic features: without psychotic features Qualified Code(s): F33.2 - Major depressive disorder, recurrent severe without psychotic features (17) DVT prophylaxis: Status: Acute Assessment and plan: SCDs (18) Discharge planning issues: Status: Acute Assessment and plan: Full code Palliative care consulted. Plan is for discharge to SNF. Subjective Subjective Interval history since last seen: Patient complains of more back and chest wall pain. Her tramadol was discontinued last night and she was put on prn oxycodone 2.5 mg. I am ordering zoledronic acid infusion for her bone pain and will put her on scheduled tramadol 50 mg qid since she does not ask for pain meds until it gets severe. I also have put her on scheduled APAP. Exam Narrative Exam Narrative: Cachectic appearing -[place] female who appears to be in some mild pain points to the left side of her posterior lower rib cage. She has palpable tenderness over both the left and the right rib cage. Lungs are clear to auscultation Heart is regular rate rhythm Abdomen scaphoid nontender Extremities 1+ edema of her feet and legs Objective Last Vital Signs Temp 36.6 C 10/09/23 16:44 Pulse 104 H 10/09/23 16:44 Resp 16 10/09/23 16:44 BP 111/73 10/09/23 16:44 Pulse Ox 94 10/09/23 16:44 Laboratory Results - last 24 hr 10/09/23 06:35 WBC 3.25 L RBC 2.92 L Hgb 8.4 L Hct 26.0 L MCV 89 MCH 28.8 MCHC 32.3 RDW 15.7 H Plt Count 171 MPV 10.4 Immature Gran % 6.8 Neutrophils % 58.4 Lymphocytes % 30.5 Monocytes % 3.1 Eosinophils % 0.3 Basophils % 0.9 Nucleated RBC % 7.7 H Absolute Neutrophils 1.90 Absolute Lymphocytes 0.99 L Absolute Monocytes 0.10 Absolute Eosinophils 0.01 Absolute Basophils 0.03 RBC Morphology See Below Polychromasia Present Sodium 141 Potassium 3.8 Chloride 100 Carbon Dioxide 25.1 Anion Gap 15.9 H BUN 15 Creatinine 0.7 Est GFR (CKD-EPI 2020) 91.26 Glucose 66 L Calcium 9.1 Magnesium 1.7 L 25-OH Vitamin D Total 38.9 Time Spent with Patient Time Spent with Patient: 25-34 minutes Time was spent: preparing to see the patient(eg.review tests), ordering medications,tests, procedures, referring, communicating with other health healthcare architect, indepentently interpreting results, counseling the patient and care coordination
[2023-10-09] MEDS: Mirtazapine 15 MG TAB 7.5 MG PO (20:20)
[2023-10-09] MEDS: Acetaminophen 500 MG TAB 1000 MG PO (20:20)
[2023-10-09] MEDS: traMADol 50 MG TAB PO (20:20)
[2023-10-10] MEDS: Vancomycin 125 MG CAP PO ×5 (00:16→23:47)
[2023-10-10 05:57] LABS: Lactate 5.4 mmol/L (0.6-1.4)
[2023-10-10 06:20] LABS: ALT 14 U/L (14-59); AST 90 U/L (15-37); Albumin 2.2 g/dL (3.4-5.0); Alkaline Phosphatase 111 U/L (46-116); Anion Gap 13.7 mmol/L (3-11); BUN 19 mg/dL (7-18); Bilirubin, Total 0.7 mg/dL (0.2-1.0); CO2 26.3 mmol/L (21.0-32.0); CREATININE 0.7 mg/dL (0.55-1.02); Calcium 8.9 mg/dL (8.5-10.1); Chloride 100 mmol/L (98-107); Estimated GFR 91.26 (mL/min/1.73m2); Glucose 57 mg/dL (74-106); Potassium 3.8 mmol/L (3.5-5.1); Sodium 140 mmol/L (136-145); Total Protein 6.1 g/dL (6.4-8.2)
[2023-10-10 07:17] VITALS: BP 118/80; PULSE 131; RESP 12; TEMP 37.1; O2SAT 95
[2023-10-10] MEDS: Acetaminophen 500 MG TAB 1000 MG PO ×3 (08:36→20:27)
[2023-10-10] MEDS: Furosemide 20 MG TAB PO (08:36)
[2023-10-10] MEDS: traMADol 50 MG TAB PO ×2 (08:37→14:30)
[2023-10-10] MEDS: Protein Nutritional Supplement 16 GM 1 OUNCE PACKET PO ×2 (08:37→20:26)
[2023-10-10] MEDS: Psyllium PKT 1 EACH PO ×2 (08:37→20:26)
[2023-10-10] MEDS: Normal Saline Flush 10 ML SYR IVP ×2 (08:37→20:28)
[2023-10-10] MEDS: Midodrine 2.5 MG TAB PO ×3 (08:37→20:26)
[2023-10-10] MEDS: Metoprolol 12.5 MG TAB PO ×2 (08:37→20:28)
[2023-10-10] MEDS: Magnesium Chloride 64 MG TABCR PO ×3 (08:37→20:28)
[2023-10-10] MEDS: Calcitonin-Salmon, Synthetic 3.7 ML BTL NS (08:39)
--- NOTE | 2023-10-10 10:21 | W.PM.PROGNOT ---
Date of Service Date of service: 10/10/23 Time of Service: 10:21 Assessment and Plan Assessment and plan (1) C. difficile diarrhea: Status: Acute Assessment and plan: Continue vancomycin will add rifaximin since this is slow to respond to treatment. If no significant improvement over the next 24 to 48 hours in terms of her diarrhea we will give her monoclonal antibody against C. difficile. Patient needs to take her Metamucil as this does seem to help thicken her stools. Apparently she refused couple times yesterday to take the Metamucil. I think once her C. difficile diarrhea is controlled her appetite will improve although she has had longstanding poor appetite problems and depression. I spoke with the patient's daughters including Trish who who patched in her other sisters into the phone call so they could listen and ask questions. (2) Sinus tachycardia: Status: Acute Assessment and plan: I think her sinus tachycardia is related to her pain. Rhythm has been stable, no PSVT or afib. I will dc her telemetry at this point. Wean lopressor to 12.5 mg bid (3) Pleural effusion, bilateral: Status: Acute Assessment and plan: Most likely due to hypoalbuminemia. The echocardiogram does show pulmonary hypertension with RVSP of 41 mmHg. Continue midodrine and diuresis. The patient had refused thoracentesis twice on this admission. (4) Lytic lesion of bone on x-ray: Status: Acute Assessment and plan: still awaiting UPEP. SPEP did not have a monoclonal spike so does not appear to be MM however, I will await results of her Beta 2 microglobulin and her UPEP. Of note she did have elevated free Ale light chains in her urine. Patient will need outpatient referral to oncology to complete workup as an outpatient (5) Multiple rib fractures: Status: Acute Assessment and plan: Continue pain control and encourage IS/acapella. I have changed her APAP chacha 1000 mg tid scheduled and put her on tramadol 50 mg po tid, with parameters to hold if she is sleeping or confused or pain-free. She also has lidoderm patches which have increased to 3 patches a day to be given at night. 1 patch on the right 1 patch on the left posterolateral chest wall and 1 on her lower back. I have also started her on Cymbalta 20 mg daily which will help with depression as well as pain control. I have requested for anesthesia to consult on her case and see if it is feasible to do any kind of [place] around her rib fractures. Qualifiers: Encounter type: initial encounter Fracture type: closed Laterality: bilateral Qualified Code(s): S22.43XA - Multiple fractures of ribs, bilateral, initial encounter for closed fracture (6) Adult failure to thrive: Status: Acute Assessment and plan: BMI of 14.7 kg/m2. Nutrition consulted as is psychiatry: ?eating disorder. Psychiatry feels the patient has depression. Continue mirtazapine. Increase mirtazapine to 15 mg at bedtime, add Cymbalta 20 mg daily. I have added Marinol and Megace to help stimulate her appetite. (7) Unintentional weight loss: Status: Acute Assessment and plan: As above (8) Protein calorie malnutrition: Status: Acute Assessment and plan: As above Supplement thiamine. Being followed by nutrition. Addition of Megace and Marinol to stimulate appetite. Qualifiers: Protein-calorie malnutrition severity: severe Qualified Code(s): E43 - Unspecified severe protein-calorie malnutrition (9) Transaminitis: Status: Acute Assessment and plan: Hepatitis studies are negative. US RUQ negative. (10) Hypoalbuminemia: Status: Acute Assessment and plan: Encourage PO intake (11) Lactic acidosis: Status: Acute Assessment and plan: with normal procalcitonin level and no refractory hypotension and negative blood cultures, doubt that her lactate was d/t sepsis. May be related to her underlying cause of her multiple fractures, i.e. metastatic cancer/myeloma or may be d/t hepatic congestion. Lactate remains elevated and is probably secondary to her underlying processes causing her lytic bone lesions. (12) Normocytic anemia: Status: Acute Assessment and plan: Her ferritin is greater than 2000, ruling out iron deficiency. Her B12 and folate are within normal limits as well. There is no active bleeding. I suspect this has to do with her malnutrition and anemia of chronic disease. Of note she is also leukopenic suggesting some bone myelophthistic process. she may need bone marrow to elucidate cause of her lytic fractures and her anemia/leukopenia (13) Hypomagnesemia: Status: Acute Assessment and plan: Replete (14) Sacral decubitus ulcer, stage II: Status: Acute Assessment and plan: C/s wound care, PT (15) Major depressive disorder: Status: Acute Assessment and plan: Evaluated by psychiatry. Increase mirtazapine to 15 mg at bedtime, start Cymbalta 20 mg daily and titrate every few days. Qualifiers: Major depression recurrence: recurrent Active/Remission status: currently active Major depression episode severity: severe Psychotic features: without psychotic features Qualified Code(s): F33.2 - Major depressive disorder, recurrent severe without psychotic features (16) DVT prophylaxis: Status: Acute Assessment and plan: SCDs (17) Discharge planning issues: Status: Acute Assessment and plan: Full code Palliative care consulted. Plan is for discharge to SNF once her diarrhea is under better control and appetite is improved. Subjective Subjective Interval history since last seen: Patient still is having loose watery stools and poor appetite. Pain control is variable. Presently she is not in acute pain. Unfortunately she waits until she is in severe pain before asking for pain meds. Exam Narrative Exam Narrative: Thin, cachectic /Dutch female who appears sleepy but awakens easily, states she ate very little for breakfast, denies any pain Lungs are clear to auscultation heart is regular but tachycardic Abdomen scaphoid soft and nontender normal bowel sounds Chest wall nontender to palpation. Objective Last Vital Signs Temp 37.1 C 10/10/23 07:17 Pulse 131 H 10/10/23 07:17 Resp 12 10/10/23 07:17 BP 118/80 10/10/23 07:17 Pulse Ox 95 10/10/23 07:17 Laboratory Results - last 24 hr 10/08/23 10/10/23 10/10/23 05:45 05:42 05:45 VBG Lactate 5.4 H* Sodium 140 Potassium 3.8 Chloride 100 Carbon Dioxide 26.3 Anion Gap 13.7 H BUN 19 H Creatinine 0.7 Est GFR (CKD-EPI 2020) 91.26 Glucose 57 L Calcium 8.9 Total Bilirubin 0.7 AST 90 H ALT 14 Alkaline Phosphatase 111 Total Protein 6.1 L Albumin 2.2 L [id number] 3.94 H Time Spent with Patient Time Spent with Patient: >50 minutes Time was spent: preparing to see the patient(eg.review tests), obtaining and/or reviewing separately otained hiistory, ordering medications,tests, procedures, referring, communicating with other health skin care consultant, indepentently interpreting results, counseling the patient and care coordination
--- NOTE | 2023-10-10 10:55 | PT.INNT ---
Date of service: 10/10/23 Time of Service: 10:52 PT Notes Visit Reasons: Lactic Acidosis Patient refuses therapy this morning due to overwhelming fatigue; agreeable to participate after lunch.
[2023-10-10] MEDS: DULoxetine 20 MG CAP PO (11:17)
[2023-10-10] MEDS: Rifaximin 550 MG TAB PO ×2 (11:17→20:27)
[2023-10-10 12:05] LABS: Albumin, Urine % 10.7 %; Albumin, Urine mg/24hrs 49 mg/24hrs; Globulins, Urine % 89.3 %; Globulins, Urine mg/24hrs 407 mg/24hrs; Immunotyping, Urine (See Note); Monoclonal Spike, urine % 12.6 %; Monoclonal Spike, urine mg/24h 57 mg/24 hrs; Total Protein Urine 24 mg/dL (See Note); Total Protein, Urine 24hrs 456 mg/24hrs (<150); Urine Volume 1900 mL
--- NOTE | 2023-10-10 12:38 | CMPROGNOTE_ITS ---
Date of service: 10/10/23 Time of Service: 12:38 Care Management Progress Note Progress Note Text Progress Note Text: S/O: Joselin is not medically ready for discharge today, per MD-related to patient presentation and medication changes. CM reviewed discharge plan with daughter's via phone and coordinated MD contact. [facility], still awaiting responses from [facility] and [facility]. Maryan was enroute to Office to submit application for [facility] Wanda GARCIA following. A: Claudia is a 73 year old female admitted to [facility] on 09/30/23 with lactic acidosis. P: Anticipate Joselin will go to SNF for short term rehab prior to returning home. Referrals were sent to [facility] facilities as well as [facility] and the [facility]; a bed offer was recieved from [facility] for [facility], possible [place] as well. Joselin will transport via private vehicle by family, if able. CM will continue to follow. SDOH(Care Management) Screening Will the Patient Participate in the Screening?: Yes Do you worry about having a steady place to live?: no In the past 12 months, have you had to go without electric, gas, oil or water in your home?: no Have you or anyone in your house had to go without enough food to eat?: no Has lack of transportation kept you from medical appointments or from doing things needed for daily living?: no Has anyone in your support network made you feel unsafe for any reason?: no
--- NOTE | 2023-10-10 17:03 | PT.INTREAT ---
Date of service: 10/10/23 Time of Service: 16:34 PT Notes Visit Reasons: Lactic Acidosis Inpatient Physical Therapy Treatment Note [facility] Date: 10/10/23 PRECAUTIONS: Fall, enteric contact, activity as tolerated. SUBJECTIVE: Patient reports feeling extremely tired, weak. OBJECTIVE: Supine in bed, agreeable to therapy. ? PAIN: signs of pain observed: grimacing, guarded movements. VITALS: monitored by nursing staff Therapeutic Activities ([id number]): Direct one-on-one instruction in dynamic activities to improve functional performance. ? BED MOBILITY/TRANSFERS? Rolling L/R: not assessed Supine-sit: set up assist to lower foot of bed, HOB elevated ~20 degrees. Patient does not make use of the handrails. ? Sit-supine: set up assist with HOB slightly elevated, Patient requires assistance to cover with blankets. ? Sit-stand x2: CGA? Stand-sit: CGA ? Bed-Chair: CGA, mod verbal and tactile cueing. Patient appears to lose track of what she is doing. ? Chair-bed: CGA, mod verbal and tactile cueing. Patient appears to lose track of what she is doing. ? ? ? Patient requests to use toilet at start of therapy, LOB noted during ambulation x3, patient states that she feels very unsteady. Once in bathroom, patient requires min assist and mod verbal cues to turn around, verbal cue to remove pants. Appears to lose track of why she is in the bathroom, remembers when prompted. Patient's cognition is better than yesterday, but not where it was 2-3 days ago. Provided skilled cues and instruction on performance and technique throughout. ASSESSMENT:? Patient's cognition is better than yesterday, but not where it was 2-3 days ago. PLAN: Continue global strengthening per plan of care until patient is medically cleared for discharge, has safe discharge plan. Patient would benefit from a brief SNF stay prior to returning home in order to regain strength and functional activity tolerance. TREATMENT CODE/TIME: 18 minutes beginning at 16:52
[2023-10-10] MEDS: Lidocaine 5% Patch 3 PATCH TP (20:29)
[2023-10-10 20:35] VITALS: BP 120/78; PULSE 114; RESP 16; TEMP 37; O2SAT 93
[2023-10-10] MEDS: Mirtazapine 15 MG TAB PO (23:47)
[2023-10-10 23:49] VITALS: BP 123/80; PULSE 104; RESP 16; TEMP 36.7; O2SAT 94
[2023-10-11] MEDS: Vancomycin 125 MG CAP PO ×4 (03:31→21:27)
[2023-10-11 07:42] VITALS: BP 124/78; PULSE 117; RESP 16; TEMP 37.4; O2SAT 95
[2023-10-11] MEDS: Protein Nutritional Supplement 16 GM 1 OUNCE PACKET PO ×3 (07:48→21:27)
[2023-10-11] MEDS: Acetaminophen 500 MG TAB 1000 MG PO ×3 (07:48→21:27)
[2023-10-11] MEDS: Psyllium PKT 1 EACH PO ×2 (07:48→21:22)
[2023-10-11] MEDS: Rifaximin 550 MG TAB PO ×2 (07:49→21:26)
[2023-10-11] MEDS: Metoprolol 12.5 MG TAB PO ×2 (07:49→21:27)
[2023-10-11] MEDS: Furosemide 20 MG TAB PO (07:49)
[2023-10-11] MEDS: Magnesium Chloride 64 MG TABCR PO ×3 (07:49→21:24)
[2023-10-11] MEDS: DULoxetine 20 MG CAP PO (07:49)
[2023-10-11] MEDS: Midodrine 2.5 MG TAB PO ×3 (07:49→21:26)
[2023-10-11] MEDS: Normal Saline Flush 10 ML SYR IVP (07:50)
[2023-10-11] MEDS: Lidocaine Patch Removal 1 EACH TD (07:51)
[2023-10-11] MEDS: Calcitonin-Salmon, Synthetic 3.7 ML BTL NS (08:01)
--- NOTE | 2023-10-11 13:28 | PDOC.CMPRO ---
Date of service: 10/11/23 Time of Service: 13:28 Care Management Progress Note Progress Note Text Progress Note Text: S/O: Joselin was busy with nursing when CM attempted to meet with her. Per report, she is not yet medically cleared due to her diarrhea not being well controlled, as well as pain control. She will continue to be closely monitored, and will be evaluated for discharge readiness daily, although the SNF will not accept for admission over the weekend. She will likely be ready to transition to short term rehab early next week, per report. CM will continue to follow. A: Claudia is a 73 year old female admitted to [facility] on 09/30/23 with lactic acidosis. P: Anticipate Joselin will go to SNF for short term rehab prior to returning home. Referrals were sent to [facility] facilities as well as [facility] and [facility]; a bed offer was recieved from [facility] for [facility], possible [place] as well. Joselin will transport via private vehicle by family, if able. CM will continue to follow. SDOH(Care Management) Screening Will the Patient Participate in the Screening?: Yes Do you worry about having a steady place to live?: no In the past 12 months, have you had to go without electric, gas, oil or water in your home?: no Have you or anyone in your house had to go without enough food to eat?: no Has lack of transportation kept you from medical appointments or from doing things needed for daily living?: no Has anyone in your support network made you feel unsafe for any reason?: no
--- NOTE | 2023-10-11 14:38 | PGE_ITS ---
Date of Service Date of service: 10/11/23 Time of Service: 14:38 Assessment and Plan Assessment and plan (1) C. difficile diarrhea: Status: Acute Assessment and plan: In light of her continued liquid diarrhea and ongoing C. difficile colitis I think it is time to pull out all the big guns and give her bezlotoxumab. I think the cost of medicine is justified given her continued need for hospitalization and the cost associated with continued inpatient treatment. (2) Sinus tachycardia: Status: Acute Assessment and plan: Unclear as to the etiology of her sinus tachycardia. She does not appear to be dyspneic. And her pain is now controlled. In light of her new diagnosis of probable multiple myeloma I will check a D-dimer and a this is elevated we will get a CTA of her chest to rule out a PE. Of note she did have a CT of her chest earlier this admission on 09/30/2023 but this was performed without contrast and she had a follow-up CT of her chest on 10/04/2023 also without contrast. If her D-dimer is elevated she will need a CT angiogram to rule out a PE. (3) Pleural effusion, bilateral: Status: Acute Assessment and plan: Most likely due to hypoalbuminemia. The echocardiogram does show pulmonary hypertension with RVSP of 41 mmHg. Continue midodrine and diuresis. The patient had refused thoracentesis twice on this admission. (4) Lytic lesion of bone on x-ray: Status: Acute Assessment and plan: UPEP positive for monoclonal spike and beta 2 microglobulin level was elevated. This is consistent with either MGUS or MM. I am recommending bone marrow biopsy and referral to heme/onc. I assured her daughters that we would make the appropriate referrals. (5) Multiple rib fractures: Status: Acute Assessment and plan: pain improved w/ schedule Aleve, lidoderm patches, miacalcin nasal spray and giving her zoledronic acid and adding Cymbalta Qualifiers: Encounter type: initial encounter Fracture type: closed Laterality: bilateral Qualified Code(s): S22.43XA - Multiple fractures of ribs, bilateral, initial encounter for closed fracture (6) Adult failure to thrive: Status: Acute Assessment and plan: patient not tolerating Megace, d/t hot flashes, will dc megace; marinol never started. (7) Unintentional weight loss: Status: Acute Assessment and plan: As above (8) Protein calorie malnutrition: Status: Acute Assessment and plan: As above Supplement thiamine. Being followed by nutrition. Qualifiers: Protein-calorie malnutrition severity: severe Qualified Code(s): E43 - Unspecified severe protein-calorie malnutrition (9) Transaminitis: Status: Acute Assessment and plan: Hepatitis studies are negative. US RUQ negative. (10) Hypoalbuminemia: Status: Acute Assessment and plan: Encourage PO intake (11) Lactic acidosis: Status: Acute Assessment and plan: with normal procalcitonin level and no refractory hypotension and negative blood cultures, doubt that her lactate was d/t sepsis. May be related to her underlying cause of her multiple fractures, i.e. metastatic cancer/myeloma or may be d/t hepatic congestion. Lactate remains elevated and is probably secondary to her underlying processes causing her lytic bone lesions. (12) Normocytic anemia: Status: Acute Assessment and plan: Her ferritin is greater than 2000, ruling out iron deficiency. Her B12 and fol ate are within normal limits as well. There is no active bleeding. I suspect this has to do with her malnutrition and anemia of chronic disease. Of note she is also leukopenic suggesting some bone myelophthistic process. she may need bone marrow to elucidate cause of her lytic fractures and her anemia/leukopenia (13) Hypomagnesemia: Status: Acute Assessment and plan: Replete (14) Sacral decubitus ulcer, stage II: Status: Acute Assessment and plan: C/s wound care, PT (15) Major depressive disorder: Status: Acute Assessment and plan: Evaluated by psychiatry. Increase mirtazapine to 15 mg at bedtime, start Cymbalta 20 mg daily and titrate every few days. Qualifiers: Major depression recurrence: recurrent Active/Remission status: [facility] active Major depression episode severity: severe Psychotic features: without psychotic features Qualified Code(s): F33.2 - Major depressive disorder, recurrent severe without psychotic features (16) DVT prophylaxis: Status: Acute Assessment and plan: SCDs (17) Discharge planning issues: Status: Acute Assessment and plan: Full code Palliative care consulted. Plan is for discharge to SNF once her diarrhea is under better control and appetite is improved. Subjective Subjective Interval history since last seen: Claudia is complaining of hot flashes. I told her and her daughter Gavi but I think this is secondary effect from the Megace I put her on to stimulate her appetite. Since the hot flashes are intolerable I will discontinue it. I informed her daughter Gavi who also got her sister Trish on the phone so that Trish could ask questions that I gave Claudia an infusion of the monoclonal antibody targeting the C. difficile organism. This should clear up her diarrhea within the next 48 hours. Hopefully her appetite will come back once the infection is cleared. I will continue to work on her antidepressants. With respect to her rib pain and back pain that is markedly better. I think that that the combined effects of Xgeva and Miacalcin along with scheduled doses of Advil. I explained to Trish and Gavi that her mother's urinary protein electrophoresis does show a monoclonal spike and that her beta-2 microglobulin level was high and these test are indicative of multiple myeloma. Upon discharge patient will be referred to heme-onc physician as well as setting her up with a primary care physician. I have spoken this morning with care management and the plan will be to keep her hospitalized through the weekend and plan for discharge to a residential early next week. Exam Narrative Exam Narrative: Cachectic -[place] female who is lying in bed with a fan pointed on her due to hot flashes. She appears to be in no acute distress and says she is pain-free Lungs are clear Heart is regular but tachycardic Abdomen is scaphoid and nontender Extremities without edema Objective Last Vital Signs Temp 37.4 C 10/11/23 07:42 Pulse 117 H 10/11/23 07:42 Resp 16 10/11/23 07:42 BP 124/78 10/11/23 07:42 Pulse Ox 95 10/11/23 07:42 Time Spent with Patient Time Spent with Patient: 35-49 minutes Time was spent: preparing to see the patient(eg.review tests), ordering medications,tests, procedures, referring, communicating with other health managed care coordinator, indepentently interpreting results, counseling the patient (and daughters Gavi and Trish) and care coordination
[2023-10-11 16:12] VITALS: BP 118/80; PULSE 110; RESP 18; TEMP 36.8; O2SAT 98
--- NOTE | 2023-10-11 16:27 | PT.INNT ---
Date of service: 10/11/23 Time of Service: 11:22 PT Notes Visit Reasons: Lactic Acidosis Patient refuses therapy today x2, initially asking therapist to come back later as she needs more rest before participating and in the afternoon stating that she will participate tomorrow but is far too tired today. Per RN report patient was wiped out after standing x1 at EOB to pivot transfer to [facility].
[2023-10-11 16:57] LABS: D-Dimer > 7500 ng/mlFEU (<500)
[2023-10-11] MEDS: Mirtazapine 15 MG TAB PO (21:26)
[2023-10-11] MEDS: Lidocaine 5% Patch 3 PATCH TP (21:27)
[2023-10-11 21:41] VITALS: BP 122/80; PULSE 110; RESP 22; TEMP 36.6; O2SAT 96
--- NOTE | 2023-10-11 23:18 | NUR.NOTE ---
Nursing Note: Pt scheduled for STAT CT d/t D-dimer of 7500. Pt brought to CT, IV access compromised, New IV placement attempted x2 with no success. Pt refused more attempts. Provider notified and came to floor to speak with pt. Pt agreeable to trying again, IV placement achieved by Holly Sy RN and pt brought back to CT for scan. Once in CT, pt refusing study. Provider notified. Provider went to CT to speak with pt but pt continued to refuse scan. Pt educated on importance of CT, will continue to monitor.
[2023-10-12] VITALS (23 sets, daily range): BP systolic 87–118; BP diastolic 54–76; PULSE 63–138; RESP 14–30; TEMP 36.5–37.5; O2SAT 91–98
--- NOTE | 2023-10-12 09:19 | NUR.NOTE ---
Patient was informed of straight to be done secondary to urinary retention. Patient was straight catheter as per MD order. 500mls of clear yellow urine was emptied from bladder at this time. patient made comfortable in bed
--- NOTE | 2023-10-12 09:40 | W.PM.PROGNOT ---
Date of Service Date of service: 10/12/23 Time of Service: 09:40 Assessment and Plan Assessment and plan (1) C. difficile diarrhea: Status: Acute Assessment and plan: s/p bezlotoxumab infusion yesterday. No diarrhea overnight, last liquid BM yesterday. continue probiotics, complete her 14 day course of vancomycin (2) Sinus tachycardia: Status: Acute Assessment and plan: I reviewed her two chest CT scan reports done so far and both were non-contrast, and in light of unexplained tachycardia and elevated d-dimer, she needs to be ruled out for P.E. She did have bilateral lower extremities US earlier in her hospital stay to evaluate her bilateral leg edema and this was negative for DVT. However none of her chest CT were done w/ contrast therefore she needs a CTA to r/o P.E. (3) Confusion: Status: Acute Assessment and plan: will check ammonia level given her recent transaminase elevations; she had CT of her head on admission which showed no acute findings. I suspect her confusion may be more related to underlying atypical depression. she does not have focal signs of CVA (4) Pleural effusion, bilateral: Status: Acute Assessment and plan: Most likely due to hypoalbuminemia. The echocardiogram does show pulmonary hypertension with RVSP of 41 mmHg. Continue midodrine and diuresis. The patient had refused thoracentesis twice on this admission. I have put her lasix on hold for now. (5) Lytic lesion of bone on x-ray: Status: Acute Assessment and plan: UPEP positive for monoclonal spike and beta 2 microglobulin level was elevated. This is consistent with either MGUS or MM. I am recommending bone marrow biopsy and referral to heme/onc. I assured her daughters that we would make the appropriate referrals. (6) Multiple rib fractures: Status: Acute Assessment and plan: pain improved w/ schedule Aleve, lidoderm patches, miacalcin nasal spray and giving her zoledronic acid and adding Cymbalta Qualifiers: Encounter type: initial encounter Fracture type: closed Laterality: bilateral Qualified Code(s): S22.43XA - Multiple fractures of ribs, bilateral, initial encounter for closed fracture (7) Adult failure to thrive: Status: Acute Assessment and plan: patient not tolerating Megace, d/t hot flashes, will dc megace; marinol never started. (8) Unintentional weight loss: Status: Acute Assessment and plan: As above (9) Protein calorie malnutrition: Status: Acute Assessment and plan: As above Supplement thiamine. Being followed by nutrition. Qualifiers: Protein-calorie malnutrition severity: severe Qualified Code(s): E43 - Unspecified severe protein-calorie malnutrition (10) Transaminitis: Status: Acute Assessment and plan: Hepatitis studies are negative. US RUQ negative. (11) Hypoalbuminemia: Status: Acute Assessment and plan: Encourage PO intake (12) Lactic acidosis: Status: Acute Assessment and plan: with normal procalcitonin level and no refractory hypotension and negative blood cultures, doubt that her lactate was d/t sepsis. May be related to her underlying cause of her multiple fractures, i.e. metastatic cancer/myeloma or may be d/t hepatic congestion. Lactate remains elevated and is probably secondary to her underlying processes causing her lytic bone lesions. (13) Normocytic anemia: Status: Acute Assessment and plan: Her ferritin is greater than 2000, ruling out iron deficiency. Her B12 and folate are within normal limits as well. There is no active bleeding. I suspect this has to do with her malnutrition and anemia of chronic disease. Of note she is also leukopenic suggesting some bone myelophthistic process. she may need bone marrow to elucidate cause of her lytic fractures and her anemia/leukopenia (14) Hypomagnesemia: Status: Acute Assessment and plan: Replete (15) Sacral decubitus ulcer, stage II: Status: Acute Assessment and plan: C/s wound care, PT (16) Major depressive disorder: Status: Acute Assessment and plan: Evaluated by psychiatry. Increase mirtazapine to 15 mg at bedtime, start Cymbalta 20 mg daily and titrate every few days. Qualifiers: Active/Remission status: currently active Major depression episode severity: severe Major depression recurrence: recurrent Psychotic features: without psychotic features Qualified Code(s): F33.2 - Major depressive disorder, recurrent severe without psychotic features (17) DVT prophylaxis: Status: Acute Assessment and plan: SCDs (18) Discharge planning issues: Status: Acute Assessment and plan: Full code Palliative care consulted. Plan is for discharge to SNF once her diarrhea is under better control and appetite is improved. Subjective Subjective Interval history since last seen: Patient has elevated d-dimer which I ordered last night out of abundance of concern over her tachycardia. She has sinus tachycardia. We (the hospitalist service) had assumed her tachycardia was d/t either her bone pain which we have had trouble controlling or d/t her anxiety. However, yesterday when I examined her, her pain was very well controlled on the Aleve (along with the other modalities I had applied including increasing her lidoderm patches, giving her zoledronic acid and micalacin for her bone pain and low dose oxycodone. She does not appear to be septic and her oxygen levels are fine. She is a little more confused today. She is also having urinary retention issues. Exam Narrative Exam Narrative: Joselin is alert but she seems less attentive and conversant today. She seems more confused. She does follow commands appropriately. Lungs: clear Heart: tachycardia w/ some irregularity Abdomen:scaphoid, slightly tender to palpation w/ some voluntary guarding Extremities: mild bilateral leg edema much improved. Objective Last Vital Signs Temp 37.1 C 10/12/23 07:45 Pulse 63 10/12/23 07:45 Resp 14 10/12/23 07:45 BP 100/66 10/12/23 07:45 Pulse Ox 92 10/12/23 07:45 Laboratory Results - last 24 hr 10/11/23 16:18 D-Dimer > 7500 H Time Spent with Patient Time Spent with Patient: 35-49 minutes Time was spent: preparing to see the patient(eg.review tests), ordering medications,tests, procedures, referring, communicating with other health child care centre director, indepentently interpreting results and care coordination
--- NOTE | 2023-10-12 09:45 | RT.EKG_ITS ---
APPROVED REPORT Exam: Resting ECG Reason for Exam: tachycardia Patient Location: I HR:197 bpm ECG Measurements Heart Rate [address] [place] [id number] P [id number] QRSd 106 QRS 83 QT 279 T [id number] QTc 505 Conclusion Atrial fibrillation with rapid V-rate...A-rate 468 Anteroseptal infarct, age indeterminate...Q >35mS, T neg, V1-V2 Repolarization abnormality, prob rate related...ST dep, T neg, tachycardia Artifact in lead(s) I,II,III,aVR,aVL,aVF,V1,V2,V3,V4,V5,V6
--- NOTE | 2023-10-12 09:52 | DI.CT_ITS ---
Exam(s) CT CHEST PE ABD PELVIS W EXAM: CT CHEST PE ABD PELVIS W CLINICAL HISTORY: dyspnea, elevated d dimer. TECHNIQUE: Imaging Protocol: Axial CT angiography was performed with multi-slice acquisition and mu lti-planar and/or 3D reconstructions. CONTRAST MATERIAL: Intravenous: Omnipaque 350 Contrast volume:100 ml COMPARISON: CT CT THORACIC LUMBAR SPINE REC from 09/30/[address] CHEST/ABD/PEL WO from 09/30/2023 FINDINGS: Exam limited by patient motion and arm positioning. CHEST: Pulmonary Arteries: No evidence of filling defects to suggest pulmonary emboli. Tracheobronchial tree: No bronchiectasis or mucus plugging. Mediastinum and [place]: No dominant adenopathy or fluid collection. Pulmonary parenchyma: Respiratory motion. Left upper lobe infiltrate noted. Atelectasis at lung bas es. Pleura: Small right and moderate left pleural effusion. No pneumothorax. Heart: The heart is mildlydilated. Aorta: Ascending aorta measures 4.1 cm. Bones: Scoliosis. Old bilateral rib fractures. Tubes, Catheters, and Lines: None. Soft tissues: Unremarkable. ABDOMEN and PELVIS: Significant motion artifact. Exam limited by lack of intra-abdominal fat, lack of oral contrast and delayed venous phase of imaging. Liver: Normal size. Normal density. No suspicious measurable mass. Gallbladder and Biliary Tract: No radiodense calculus. No biliary dilatation. Pancreas: Normal density, no abnormal calcifications or inflammatory process. Spleen: Normal. Adrenals: No masses seen. Kidneys: Normal size, contour and axis. No radiodense stones. No obstructive uropathy. No masses seen . Vasculature: Abdominal aorta non-dilated. Bowel: Poorly evaluated due to motion. Limited evaluation due to lack of oral contrast and intra-abd ominal fat. Large quantity of stool distending the rectum and distal sigmoid. Gas scattered in smal l and large bowel. Peritoneal Cavity: No ascites, collection or mesenteric inflammatory response. Lymph Nodes: Within normal limits. Soft Tissues: Unremarkable. Bladder: Symmetric distention, no gross wall thickening. Reproductive Organs: Calcified uterine fibroid. Bones: Scoliosis and degenerative changes. Stable old mild L2 compression fracture. IMPRESSION: 1. No evidence of pulmonary embolism. Bilateral pleural effusions, left greater than right. Left upp er lobe infiltrate. 2. Evaluation of the bowel extremely limited. Large quantity of stool distending the rectum. RADIATION DOSE DELIVERED: 1,321.65mGy.cm Total DLP DATA REPOSITORY: All CT scans at this facility are submitted to the National Radiology Data Registry (NRDR) Dose Index Registry (DIR) with the [employer] (A[employer]). RADIATION OPTIMIZATION: All CT scans at this facility use at least one of these dose optimization te chniques: automated exposure control; mA and/or kV adjustment per patient size (includes targeted exa ms where dose is matched to clinical indication); or iterative reconstruction.
--- NOTE | 2023-10-12 10:53 | PT.INNT ---
PT Notes Visit Reasons: Lactic Acidosis Pt requested this therapist to come inside pt room, expresses that she cannot hear conversation from a distance, therapist had to percy PPE since pt was still in contact precaution, pt requested another layer of blanket after therapist has gowned up, then refused participating with therapy reporting she is too tired to do anything. pt did not want to engage anymore after receiving the blanket and politely declined further services from this therapist for today.
[2023-10-12 11:08] LABS: Ammonia 53 umol/L (11-32)
[2023-10-12] MEDS: Lactated Ringers 1,000 ML 100 ML IV ×2 (11:13→22:08)
--- NOTE | 2023-10-12 11:22 | NUR.NOTE ---
Nursing Note:change in mental status, change in vital signs. Patient orientated to self only, having visual and auditory hallucinations, respirations 28-30, BP 100-90 SBP, HR 129/137, afebrile at this time, jaundice in color, intermittently reporting 4/10 pain level, charge nurse updated on change in status, provider updated per charge, see flow sheets, see new orders
[2023-10-12] MEDS: Protein Nutritional Supplement 16 GM 1 OUNCE PACKET PO (11:58)
[2023-10-12] MEDS: Vancomycin 125 MG CAP PO ×2 (11:59→16:13)
[2023-10-12] MEDS: Midodrine 2.5 MG TAB PO (11:59)
[2023-10-12] MEDS: Lidocaine Patch Removal 1 EACH TD (12:00)
[2023-10-12] MEDS: Rifaximin 550 MG TAB PO (12:01)
[2023-10-12] MEDS: Acetaminophen 500 MG TAB 1000 MG PO (12:03)
[2023-10-12] MEDS: Calcitonin-Salmon, Synthetic 3.7 ML BTL NS (12:05)
[2023-10-12] MEDS: Magnesium Chloride 64 MG TABCR PO (12:06)
[2023-10-12] MEDS: DULoxetine 20 MG CAP PO (12:07)
[2023-10-12] MEDS: Normal Saline Flush 10 ML SYR IVP (14:26)
[2023-10-12] MEDS: LORazepam 2 MG/ML VIAL 1 MG IVP (16:13)
[2023-10-12 17:12] LABS: 1,25-Dihydroxyvitamin D 19 pg/mL (18-78)
[2023-10-12] MEDS: Normal Saline - Diluent 50 ML VIAL IJ (17:16)
[2023-10-12] MEDS: Omnipaque 350 MG/ML 100 ML BTL IJ (17:16)
--- NOTE | 2023-10-12 18:19 | DI.VRAD_ITS ---
PROCEDURE INFORMATION: Exam: CTA Chest With Contrast CTA Abdomen With Contrast Exam date and time: 10/12/2023 5:08 PM Age: 73 years old Clinical indication: Dyspnea, Elevated d-dimer; Best obtainable as patient unable to remain still or follow directions TECHNIQUE: Imaging protocol: Computed tomographic angiography of the chest with contrast. Exam focused on the arteries. Computed tomographic angiography of the abdomen with contrast. Exam focused on the arteries. 3D rendering (Not supervised by radiologist): MIP and/or 3D reconstructed images were created by the technologist. Contrast material: OMNIPAQUE 350; Contrast volume: 50 ml; Contrast route: INTRAVENOUS (IV); COMPARISON: CT CHEST WO 10/04/2023 11:47 AM FINDINGS: VASCULATURE: Pulmonary arteries: No evidence of acute pulmonary embolism. Aorta: Normal caliber thoracic / abdominal aorta without dissection or aneurysm. Celiac trunk and mesenteric arteries: No occlusion or significant stenosis. Renal arteries: No occlusion or significant stenosis. CHEST: Lungs: Left upper lobe infiltrate. Minimal compressive atelectasis within each posterior lower lobe. Pleural spaces: Small right pleural fluid collection. Moderate left pleural fluid collection. No pleural fluid collection. No pneumothorax. Heart: No right ventricular strain. No pericardial effusion. ABDOMEN AND PELVIS: Liver: No mass. Gallbladder and bile ducts: Unremarkable. No calcified stones. No ductal dilation. Pancreas: Unremarkable. No mass. No ductal dilation. Spleen: Unremarkable. No splenomegaly. Adrenal glands: Unremarkable. No mass. Kidneys and ureters: Unremarkable. No solid mass. No hydronephrosis. Stomach and bowel: Question wall pneumatosis of a few small bowel loops in the lower left abdomen / upper left pelvic region (coronal images 15-24, series 6) versus motion artifact. No definite bowel mucosal thickening. No bowel obstruction. Appendix: The appendix is never clearly visualized. Intraperitoneal space: Unremarkable. No free air. No significant fluid collection. Reproductive: Possible atrophic uterus with benign anterior calcification. Lymph nodes: No enlarged lymph nodes. Bones/joints: Lower lumbar spine degenerative changes. Thoracolumbar spine mild scoliosis. Soft tissues: Unremarkable. IMPRESSION: 1. Question wall pneumatosis of a few small bowel loops in the lower left abdomen / upper left pelvic region (coronal images 15-24, series 6) versus motion artifact. No definite bowel mucosal thickening. No bowel obstruction. 2. No evidence of acute pulmonary embolism. 3. Small right pleural fluid collection. Moderate left pleural fluid collection. 4. Left upper lobe infiltrate. 5. Minimal compressive atelectasis within each posterior lower lobe. Dictated and Authenticated by: Faustino Bowser MD. [facility]ing[facility] Jeremy Goldsmith MD
[2023-10-12] MEDS: oxyCODONE 5 MG TAB 2.5 MG PO (18:43)
[2023-10-12 21:01] LABS: Bilirubin Negative (Negative); Blood Negative (Negative); Clarity Clear (Clear); Glucose Negative (Negative); Ketones 15 mg/dL (Negative); Leukocyte Esterase Negative (Negative); Nitrite Negative (Negative); Urobilinogen 0.2 mg/dL (Up to 0.2)
--- NOTE | 2023-10-12 21:54 | NUR.NOTE ---
Nursing Note: Pt unable to stay awake long enough to take HS medications. CC aware.
[2023-10-13] VITALS (131 sets, daily range): BP systolic 82–118; BP diastolic 57–102; PULSE 85–197; RESP 12–68; TEMP 37.1–37.2; O2SAT 2–100
[2023-10-13] MEDS: Metoprolol 5 MG/5 ML VIAL IVP ×2 (03:40→04:02)
[2023-10-13] MEDS: MORPHine 2 MG/ML SYR IVP ×7 (04:02→13:36)
[2023-10-13] MEDS: Normal Saline Flush 10 ML SYR IVP ×7 (04:03→23:12)
[2023-10-13] MEDS: dilTIAZem 25 MG/5 ML VIAL 10 MG IVP (04:14)
--- NOTE | 2023-10-13 04:41 | NUR.NOTE ---
Nursing Note: 2330: Tabulating Supervisor notified CC of pt being unable to take PO medications, including her Metoprolol. Pts HR in the 120s-130s ATT. Pt also showing FLACC signs of pain. IVP metoprolol and IV pain medication requested by poem writer, Dr. Sincere betts ATT. 2350: Provider called back and stated he would rather wait on adding anymore medications ATT d/t pt receiving IVP lorazepam @[address] Pts HR continuing to climb to the 140s then drop back down to the 100s throughout night, patient continuously monitored via tele. 0325: Tabulating Supervisor informed by ICU that pt is in suspected SVT with HR in the 240's. Pt unable to follow commands to attempt a vagal response. Valsalva manuver attempted with no change in HR. Provider contacted again for IVP metoprolol, two doses of 5mg IVP administered per Ericka Sy RN. One time dose IVP Morphine 2mg and 10 mg IVP Cardizem administered for persistant HR between 130-150 bpm. Pt still maintaining HR in the 140s-150s, transferred to ICU, MD notified, report given to AR Rose. Family to be notified by ICU of transfer and change of status.
[2023-10-13] MEDS: Lactated Ringers 1,000 ML 100 ML IV (04:58)
--- NOTE | 2023-10-13 05:07 | NUR.NOTE ---
Nursing Note:Trish REI called at this time. reported transfer to ICU due to high rate afib 200-230 HR. advised that meds given to reduce hr but BP not stable enought to give enough meds to bring hr under goal of 120. now 130-160. PT comfortable after IV morphine. Daughter will come in.
[2023-10-13] MEDS: dilTIAZem 125 MG in Normal Saline 100 ML IV (05:15)
[2023-10-13] MEDS: ACETAMINOPHEN 1,000 MG/100 ML BTL 400 MG (05:36)
[2023-10-13 06:51] LABS: HCT 25.9 % (36.0-46.0); HGB 8.1 g/dL (11.2-15.7); MCH 28.8 pg (27.0-33.0); MCHC 31.3 % (32.0-36.0); MCV 92 fL (80-95); MPV 10.9 fL (8.0-11.0); Platelet Count 113 10^3/uL (130-400); RBC 2.81 10^6/uL (3.93-5.22); RDW 16.9 % (11.7-14.6); WBC 2.78 10^3/uL (4.4-10.8)
[2023-10-13 07:09] LABS: ALT 27 U/L (14-59); AST 149 U/L (15-37); Albumin 2.2 g/dL (3.4-5.0); Alkaline Phosphatase 104 U/L (46-116); Anion Gap 14.6 mmol/L (3-11); BUN 33 mg/dL (7-18); Bilirubin, Total 0.7 mg/dL (0.2-1.0); CO2 26.4 mmol/L (21.0-32.0); CREATININE 0.9 mg/dL (0.55-1.02); Calcium 7.9 mg/dL (8.5-10.1); Chloride 111 mmol/L (98-107); Glucose 121 mg/dL (74-106); Magnesium 1.8 mg/dL (1.8-2.4); Potassium 3.8 mmol/L (3.5-5.1); Sodium 152 mmol/L (136-145); Total Protein 5.6 g/dL (6.4-8.2)
--- NOTE | 2023-10-13 07:45 | RT.EKG_ITS ---
APPROVED REPORT Exam: Resting ECG Reason for Exam: tachy Patient Location: I HR:149 bpm ECG Measurements Heart Rate 149 [address] [place] [id number] P [id number] QRSd 139 QRS -4 QT 322 T 149 QTc 507 Conclusion Age not entered, assumed to be 50 years old for purpose of ECG interpretation Atrial fibrillation...V-rate 124-179, irreg A-activity Anteroseptal infarct, old...Q >40mS, V1-V2 Nonspecific T abnormalities, lateral leads...T <-0.10mV, I aVL V5 V6
[2023-10-13 07:49] LABS: Absolute Lymphocyte Count 0.39 10^3/uL (1.2-3.4); Absolute Monocyte Count 0.03 10^3/uL (0.1-0.8); Absolute Neutrophil Count 2.25 10^3/uL (1.2-6.7); Anisocytosis 2+; Bands % 20; Diff Comment Manual Differential; Metamyelocytes % 3; Myelocytes % 1
[2023-10-13 07:50] LABS: Poikilocytes 1+; Polychromasia Present
[2023-10-13] MEDS: Normal Saline 250 ML 500 ML IV (08:45)
[2023-10-13] MEDS: dilTIAZem 125 MG in Normal Saline 100 ML 20 MG IV (13:31)
--- NOTE | 2023-10-13 14:51 | PGE_ITS ---
Date of Service Date of service: 10/13/23 Time of Service: 14:51 Assessment and Plan Assessment and plan (1) Comfort measures only status: Status: Acute Assessment and plan: In short, patient was initially admitted for concerns of intermittent confusion and unintentional weight loss resulting in frequent falls and multiple acute and subacute rib fractures. However, during hospitalization patient was also found to have lytic bone lesion and gamma spikes in her urine highly suggestive of potential multiple myeloma or MGUS. Additionally, patient also developed significant C. difficile diarrhea as well as sinus tachycardia that was then transition to A-fib RVR that did not improve with combination of IV fluids and IV rate control. Ultimately, given ongoing significant decline in patient's mental status, and overall health condition was significantly exacerbated by her poor nutritional status prior to arrival to the hospital, family ultimately decided to transition to comfort measures only. -All medications nonessential to patient's level of comfort have been discontinued, including diltiazem drip, and antibiotics -Stopping IV fluids -Stop checking vital signs, telemetry has been discontinued -Patient is being started on IV morphine continuous drip -As needed IV/IM Ativan, Haldol, Zofran, Phenergan have all been ordered -Minimize patient and family disturbance (2) C. difficile diarrhea: Status: Acute (3) Sinus tachycardia: Status: Acute (4) Confusion: Status: Acute (5) Pleural effusion, bilateral: Status: Acute (6) Lytic lesion of bone on x-ray: Status: Acute (7) Multiple rib fractures: Status: Acute Qualifiers: Encounter type: initial encounter Fracture type: closed Laterality: bilateral Qualified Code(s): S22.43XA - Multiple fractures of ribs, bilateral, initial encounter for closed fracture (8) Adult failure to thrive: Status: Acute (9) Unintentional weight loss: Status: Acute (10) Protein calorie malnutrition: Status: Acute Qualifiers: Protein-calorie malnutrition severity: severe Qualified Code(s): E43 - Unspecified severe protein-calorie malnutrition (11) Transaminitis: Status: Acute (12) Hypoalbuminemia: Status: Acute (13) Lactic acidosis: Status: Acute (14) Normocytic anemia: Status: Acute (15) Hypomagnesemia: Status: Acute (16) Sacral decubitus ulcer, stage II: Status: Acute (17) Major depressive disorder: Status: Acute Qualifiers: Major depression recurrence: recurrent Active/Remission status: currently active Major depression episode severity: severe Psychotic features: without psychotic features Qualified Code(s): F33.2 - Major depressive disorder, recurrent severe without psychotic features Subjective Subjective Interval history since last seen: Patient experienced significant decline overnight and so this morning with ongoing rapid heart rate necessitating transfer to the ICU. Despite being on diltiazem drip and being given additional IV fluids her heart rate remained elevated and the patient remained significantly confused. Earlier in the morning a prolonged discussion was had with the patient's family including her 3 daughters, 2 of which have been her designated DPOA's, and it was explained that patient's condition continues to worsen despite maximal medical therapy. The only other option would be to attempt NG tube placement and artificial feeding to attempt to improve patient's weakened condition enough for her to be able to tolerate diet potential diagnosis and therapy of presumed multiple myeloma. Ultimately, after long period of discussion on the deliberating, patient's family decided for patient to be transitioned to comfort measures only. Exam Narrative Exam Narrative: Chronically ill, cachectic appearing older female laying in bed in no acute distress, not arousable to verbal stimuli, has had a few observed periods about 10 to 15 seconds of apnea Objective Last Vital Signs Temp 98.8 F 10/13/23 13:00 Pulse 142 H 10/13/23 13:36 Resp 19 10/13/23 07:36 BP 99/73 L 10/13/23 13:36 Pulse Ox 96 10/13/23 09:08 Laboratory Results - last 24 hr 10/12/23 10/13/23 20:52 06:45 WBC 2.78 L RBC 2.81 L Hgb 8.1 L Hct 25.9 L MCV 92 MCH 28.8 MCHC 31.3 L RDW 16.9 H Plt Count 113 L MPV 10.9 Immature Gran % See Differential Neutrophils % 61.0 Band Neutrophils % 20 Lymphocytes % 14.0 Monocytes % 1.0 Eosinophils % 0.0 Basophils % 0.0 Metamyelocytes % 3 Myelocytes % 1 Nucleated RBC % 12.0 H Absolute Neutrophils 2.25 Absolute Lymphocytes 0.39 L Absolute Monocytes 0.03 L Absolute Eosinophils 0.00 Absolute Basophils 0.00 RBC Morphology See Below Polychromasia Present Poikilocytosis 1+ Anisocytosis 2+ Sodium 152 H Potassium 3.8 Chloride 111 H Carbon Dioxide 26.4 Anion Gap 14.6 H BUN 33 H Creatinine 0.9 Est GFR (CKD-EPI 2020) 67.50 Glucose 121 H Calcium 7.9 L Magnesium 1.8 Total Bilirubin 0.7 AST 149 H ALT 27 Alkaline Phosphatase 104 Total Protein 5.6 L Albumin 2.2 L Urine Color Yellow Urine Clarity Clear Urine pH 6.0 Ur Specific [place] 1.020 Urine Protein Trace Urine Ketones 15 H Urine Blood Negative Urine Nitrite Negative Urine Bilirubin Negative Urine Urobilinogen 0.2 Ur Leukocyte Esterase Negative Urine Glucose Negative Time Spent with Patient Time Spent with Patient: >50 minutes Time was spent: preparing to see the patient(eg.review tests), obtaining and/or reviewing separately otained hiistory, ordering medications,tests, procedures, referring, communicating with other health healthcare representative, indepentently interpreting results, counseling the patient and care coordination
[2023-10-13] MEDS: Scopolamine 1 MG/3 DAYS PATCH TD (15:43)
[2023-10-13] MEDS: Normal Saline Flush 10 ML SYR (17:03)
[2023-10-13] MEDS: LORazepam 2 MG/ML VIAL IV/SC ×4 (18:14→23:11)
[2023-10-13] MEDS: Glycopyrrolate 0.2 MG/1 ML VIAL IVP (23:12)
--- NOTE | 2023-10-14 11:22 | EXPE_ITS ---
Date of service: 10/14/23 Time of Service: 11:22 Discharge Plan Disposition Patient Disposition: Discharge Details Reason For Visit: Lactic Acidosis Admit Date/Time: 09/30/23 16:02 Admit Provider: Kishor Rodríguez Attending Provider: Kishor Rodríguez Discharge Data Cause of : Multiple myeloma Discharge Date/Time-TO BE ENTERED AT DEPARTURE: 10/14/23 03:00 Discharge Sum: Diag PCOD Cause of : Multiple myeloma Contributing Factors (1) Comfort measures only status: (2) C. difficile diarrhea: (3) Sinus tachycardia: (4) Confusion: (5) Pleural effusion, bilateral: (6) Lytic lesion of bone on x-ray: (7) Multiple rib fractures: (8) Adult failure to thrive: (9) Unintentional weight loss: (10) Protein calorie malnutrition: (11) Transaminitis: (12) Hypoalbuminemia: (13) Lactic acidosis: (14) Normocytic anemia: (15) Hypomagnesemia: (16) Sacral decubitus ulcer, stage II: (17) Major depressive disorder: Discharge Sum: Summary Summary Details: 73 year old female admitted 09/30/23 in septic shock due to likely pneumonia, in setting of malnutrition, failure to thrive and frequent falls. Multiple acute and subacute rib fractures noted, and lytic bone lesion noted as well, leading to work up for possible myeloma. Patient received 7 day course of antibiotics for pneumonia but then developed refractory C. difficile colitis, though ultimately responsive to betoloxumab. However patient became progressively more confused and somnolent and on hospital day 14 family decided to institute comfort measures. 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
--- NOTE | 2023-10-14 11:31 | DSE_ITS ---
Date of service: 10/14/23 Time of Service: 11:31 DS: Diagnosis Discharge Diagnosis (1) Comfort measures only status: Status: Acute (2) C. difficile diarrhea: Status: Acute (3) Sinus tachycardia: Status: Acute (4) Confusion: Status: Acute (5) Pleural effusion, bilateral: Status: Acute (6) Lytic lesion of bone on x-ray: Status: Acute (7) Multiple rib fractures: Status: Acute (8) Adult failure to thrive: Status: Acute (9) Unintentional weight loss: Status: Acute (10) Protein calorie malnutrition: Status: Acute (11) Transaminitis: Status: Acute (12) Hypoalbuminemia: Status: Acute (13) Lactic acidosis: Status: Acute (14) Normocytic anemia: Status: Acute (15) Hypomagnesemia: Status: Acute (16) Sacral decubitus ulcer, stage II: Status: Acute (17) Major depressive disorder: Status: Acute Discharge Plan Disposition Patient Disposition: Discharge Details Reason For Visit: Lactic Acidosis Admit Date/Time: 09/30/23 16:02 Admit Provider: Kishor Rodríguez Attending Provider: Kishor Rodríguez Hospital Course Hospital Course: please see Summary Discharge Data Cause of : Multiple myeloma Discharge Date/Time-TO BE ENTERED AT DEPARTURE: 10/14/23 03:00 DS: Summary Time Spent with Patient providing and/or coordinating discharge services: Less than 30 minutes Status at Discharge Functional status at discharge: bed bound Overall status at discharge: other Mental Status: other Speech and Movement: other Mood: other Affect: other Quality:SDOH Health Related Social Needs: No Data to Display Exam Psych Mental Status: other Speech and Movement: other Mood: other Affect: other DS: Data Vitals/I&O Vitals and I&O: Vital Signs Temperature 37.1 C 10/13/23 13:00 Temperature Source Temporal Artery Scan 10/13/23 13:00 Pulse 158 H 10/13/23 16:00 Pulse Rhythm Regular 10/13/23 02:37 Pulse 124 H 10/13/23 16:01 Respiratory Rate 30 H 10/13/23 16:01 Respiratory Effort Non-Labored 10/13/23 13:00 Respiratory Depth Shallow 10/13/23 13:00 Respiratory Pattern Normal 10/13/23 13:00 Blood Pressure 93/78 L 10/13/23 16:00 Blood Pressure Mean 84 10/13/23 16:00 Blood Pressure Position Left Lateral 10/13/23 13:00 Pulse Oximetry 97 10/13/23 15:21 Oxygen Delivery Method Nasal Cannula 10/13/23 13:00 Oxygen Flow Rate 2 10/13/23 13:00 Pain Level 7 10/12/23 18:43 Comment dilt gtt - elevated HR and cardiac stress with sat at 90% on RA. 2L via NC placed 10/13/23 05:44 Intake & Output 10/13/23 10/13/23 10/14/23 11:59 23:59 11:59 Intake Total 1058.333 / 2125.700 1067.367 / 2125.700 2.333 / 2.333 Balance 1058.333 / 2125.700 1067.367 / 2125.700 2.333 / 2.333 Weight 45 kg Intake: IV 1058.333 / 2125.700 1067.367 / 2125.700 2.333 / 2.333 Other: Urine Color Yellow Urine Appearance Clear Comment dry at this time. Stool Size Small Stool Characteristics Liquid Voiding Methods Diaper Incontinent Data Completed and Pending Labs on day of discharge: Labs from last 24 hours 10/09/23 06:35 Vit D 1,25-Dihydroxy 19 Preliminary micro results at discharge 10/12/23 20:52 Urine Culture - Preliminary Urine - Cath Straight [facility] All Active Problems (Updated 10/13/23 @ 14:53 by Kishor Rodríguez MD) Comfort measures only status (Acute) Confusion (Acute) Advanced care planning/counseling discussion (Acute) Palliative care patient (Acute) DNR (do not resuscitate) (Acute) DNR/DNI +transfer and treat see 10/08/2023 COLST Sinus tachycardia (Acute) C. difficile diarrhea (Acute) Lytic lesion of bone on x-ray (Acute) Major depressive disorder (Acute) Cognitive impairment (Acute) Abnormal weight loss (Acute) Palliative care encounter (Acute) Sacral decubitus ulcer, stage II (Acute) Hypomagnesemia (Acute) Normocytic anemia (Acute) Lactic acidosis (Acute) Discharge planning issues (Acute) DVT prophylaxis (Acute) Hypoalbuminemia (Acute) Transaminitis (Acute) Multiple rib fractures (Acute) Protein calorie malnutrition (Acute) Pleural effusion, bilateral (Acute) Adult failure to thrive (Acute) Unintentional weight loss (Acute) Hx of falling (Acute) Acute lactic acidosis (Acute) Social History Smoking/Tobacco Use Status: Never Smoking risk assessment performed?: Yes Housing: house Time Spent with Patient Time Spent with Patient: <45 minutes Time was spent: other
== END 2023-10-14 03:00 | disposition expired | DRG 871 ==
LOC: ER 16:04 → MS 16:28 → ICU 10-13 04:16 → MS 10-13 16:38
PROVIDERS: Family Medicine; Internal Medicine; Surgery; Admitting Provider Family Medicine; Emergency Provider Emergency Medicine; Visit Provider Family Medicine
DX: A41.9 Sepsis, unspecified organism (principal); E43 Unspecified severe protein-calorie malnutrition; J18.9 Pneumonia, unspecified organism; R65.21 Severe sepsis with septic shock; S22.43XA Multiple fractures of ribs, bilateral, initial encounter for closed fracture; S32.020A Wedge compression fracture of second lumbar vertebra, initial encounter for closed fracture; Z68.1 Body mass index [BMI] 19.9 or less, adult; E87.20 Acidosis, unspecified; F33.2 Major depressive disorder, recurrent severe without psychotic features; A04.72 Enterocolitis due to Clostridium difficile, not specified as recurrent; J98.11 Atelectasis; E87.21 Acute metabolic acidosis; C90.00 Multiple myeloma not having achieved remission; R62.7 Adult failure to thrive; R63.4 Abnormal weight loss; D64.9 Anemia, unspecified; E83.42 Hypomagnesemia; L89.152 Pressure ulcer of sacral region, stage 2; Z51.5 Encounter for palliative care; R41.89 Other symptoms and signs involving cognitive functions and awareness; Z66 Do not resuscitate; R29.6 Repeated falls; R00.0 Tachycardia, unspecified; R41.0 Disorientation, unspecified; R74.01 Elevation of levels of liver transaminase levels
CPT/HCPCS: 00123; 36415; 36416; 71250; 71275; 74177; 76604; 78306; 80048; 80053; 80076; 82306; 82533; 82550; 82962; 84145; 84156; 84166; 85027; 86335; 86704; 86706; 86803; 87040; 87340; 87493; 87505; 87637; 87641; 87798; 92526; 92610; 93005; 93306; 96361; 96365; 96367; 97110; 97112; 97116; 97162; 97530; 99285; J3489; 70450; 74176; 76700; 77075; 80178; 80329; 81003; 81050; 82140; 82232; 82607; 82652; 82728; 82746; 83540; 83550; 83605; 83615; 83735; 83880; 83883; 84155; 84165; 84443; 84484; 84590; 85014; 85018; 85025; 85379; 85610; 86140; 86320; 86618; 87086; 93010; 93970; 94668; 99223; 99232; 99233; J0131; J0295; J0565; J0692; J0696; J1170; J1596; J2060; J2270; J2470; J3372; J3411; J3475; J3490